=== PATIENT | female | born 1970 | race Hispanic/Latino ===

== ENCOUNTER 2024-02-16 18:07 | Inpatient (IN) | payer OTHER, SELFPAY ==
[2024-02-16] VITALS (24 sets, daily range): BP systolic 80–150; BP diastolic 54–115; BMI 26.3; BMI 25.5
[2024-02-16 16:39] LABS: Glucose - Point of Care 143 mg/dl (70-99)
[2024-02-16 16:50] LABS: % Basophils 0.4 % (0-2); % Eosinophils 0.2 % (0-6); % Immature Granulocytes 0.6 % (0-0.5); % Lymphocytes 22.7 % (20.5-51.1); % Monocytes 5.4 % (1.7-9.3); % Neutrophils 70.7 % (42.2-75.2); Absolute Basophils 0.1 10^3/uL (0-0.2); Absolute Immature Granulocytes 0.1 10^3/uL (0-0.05); Absolute Lymphocytes 2.8 10^3/uL (1.2-3.4); Absolute Monocytes 0.7 10^3/uL (0.1-0.6); Absolute Neutrophils 8.5 10^3/uL (1.4-6.5); Hematocrit 49.4 % (37.0-47.0); Hemoglobin 16.6 g/dL (12.0-16.0); Mean Corp Hgb Conc. 33.6 g/dL (33.0-37.0); Mean Corpuscular Hgb 30.7 pg (27.0-31.0); Mean Corpuscular Volume 91.5 fL (81.0-99.0); Mean Platelet Volume 11.4 fL (7.4-10.4); Nucleated Red Blood Cells % 0 %; Platelet Count 213 10^3/uL (130-400); Red Cell Dist. Width 12.5 % (11.5-14.5); White Blood Cell Count 12.1 10^3/uL (4.8-10.8)
[2024-02-16 17:16] LABS: ALT (SGPT) 25 U/L (0-35); AST (SGOT) 41 U/L (14-36); Albumin 4.4 g/dl (3.5-5.0); Alkaline Phosphatase 176 U/L (38-126); Blood Urea Nitrogen 20 mg/dl (7-17); Calcium 9.3 mg/dl (8.4-10.2); Carbon Dioxide 25 mmol/L (22-30); Chloride 101 mmol/L (98-107); Glucose 149 mg/dl (70-99); Potassium 4.4 mmol/L (3.5-5.1); Sodium 139 mmol/L (135-145); Total Bilirubin 0.8 mg/dl (0.2-1.3); eGFR > 60.00
[2024-02-16 17:23] LABS: Troponin I 0.756 ng/ml
[2024-02-16] MEDS: NITROSTAT (SUBLINGUAL) 0.4 MG SL (17:34)
--- NOTE | 2024-02-16 17:45 | ED.GENMED ---
History of Present Illness
General
Chief Complaint: Headache
Source: patient
Exam Limitations: none
Time Seen by Provider: 02/16/24 16:12
Nursing documentation reviewed up to this point in time: agreed with
History of Present Illness
History of Present Illness:
Patient diagnosed with non-STEMI and scheduled for CABG procedure on Sunday, presents to the emergency department after leaving AGAINST MEDICAL ADVICE at [facility] this afternoon. Patient states that she wanted to be near her family when
she has a procedure. Upon arrival, however, patient denies any chest pain. Patient did receive cardiac catheterization which revealed three-vessel disease 2 days ago. Patient denies shortness of breath. Denies dizziness. Denies nausea vomiting.
Denies diaphoresis. Denies previous history of similar symptoms. Patient states that she initially presented to [facility] secondary to severe left-sided chest pain.
Review of Systems
Review of Systems
Allergies reviewed?: Yes
All Other Systems: ROS reviewed and negative except as documented in HPI and ROS
Constitutional: Reports no symptoms
EENT: Reports no symptoms
Respiratory: Reports no symptoms
Cardiac: Reports no symptoms
ABD/GI: Reports no symptoms
: Reports no symptoms
Musculoskeletal: Reports no symptoms
Skin: Reports no symptoms
Neurological: Reports no symptoms
Phy Exam
Physical Exam
Physical Exam:
Physical Exam
General: no apparent distress, not acutely ill. afebrile
Head: nc/at. eomi
Neck: supple. no meningeal signs.
Heart: s1/s2 regular rate and rhythm, no murmur. equal radial pulses.
Lungs: no acute respiratory distress. clear bilaterally
Abdomen: normal bowel sounds. not tender.
Neuro: alert and oriented. no focal neurological deficits
Skin: no rash
Psychiatric: well kept. interactive and cooperative
Extremities: no edema. no calf tenderness.
Scores
Heart Score for Chest Pain Patients
STEMI patient?: No
History: Moderately Suspicious
ECG: Normal
Age: >45 - <65 years
Risk Factors: 1 or 2 Risk Factors
Troponin: >1 - <3 x Normal Limit
Heart Score for Chest Pain Patients: 4
Heart Score Risk: 20.3% MACE over next 6 weeks
Course
Orders/Labs/Results
Orders:
Orders
02/16/24 15:51
Electrocardiogram (*1) Urgent
Reason for Study: Fatigue / Weakness
EKG- Treatment ONCE
02/16/24 16:36
CR Chest Portable - 1 View Urgent
Comment:
Reason For Exam: chest pain
Reason Study Needs to be Portable: Patient Unstable
02/16/24 16:41
Complete Blood Count/With Diff Urgent
Comprehensive Metabolic Panel Urgent
Magnesium Urgent
Troponin I Urgent
02/16/24 17:22
Electrocardiogram (*1) Urgent
Reason for Study: Chest Pain
EKG- Treatment ONCE
02/16/24 17:30
Nitroglycerin Sublingual [Nitrostat (Sublingual)] 0.4 mg SL NOW STA
02/16/24 17:32
Nitroglycerin Sublingual [Nitrostat (Sublingual)] 0.4 mg .ROUTE .STK-MED ONE
02/16/24 17:41
PTT Urgent
02/16/24 17:46
Heparin 4,000 units IV NOW STA
Nursing to Place Non Medication Order As Directed
Physician Order: PTT 6 hours after initial start of Heparin infusion
Above order entered?: Yes
02/16/24 17:51
Admit/Transfer Patient As Directed
Co-Sign Provider:
Level of Care: Inpatient admission
Assign to:: IMU- Intermediate Care
Physician / Group: anthony kemp
Diagnosis: nstemi
Reason for Hospitalization: nstemi
Expected length of stay greater than two midnights?: Yes
ELOS- Estimated Length of Stay in days: 3
I certify the patient meets the requirements for IP care: Yes
PRN Pain Medication Management As Directed
May give lesser potent ordered pain med per pt: Yes
preference::
Protocol:: Medication orders for pain may be administered in a
manner that supports deferring to patient preference
when the pt is:
-Requesting an ordered lesser potent pain medication.
Least to most potent pain medications are defined as:
acetaminophen < NSAID < tramadol < opioids (morphine,
oxycodone, hydromorphone).
- Requesting a lesser dose of the same medication IF
ORDERED.
- Requesting a less intrusive route of administration
if both routes are prescribed by the provider (PO <
IV).
02/16/24 17:53
EKG [Electrocardiogram (*1)] Routine
Reason for Study: Chest Pain
Comment: for chest pain, trop increase
Echo 2D MMode Color/Doppler Routine
Reason for Study: nstemi
02/16/24 18:00
Heparin 33221 Units/250 ml 25,000 units in 250 ml IV PER PROTOCOL
Weight to be used for heparin protocol in kilograms (kg):: 71.8
Protocol:: Cardiac Tx/Acute Coronary
PTT Goal Range to be used:: PTT 73 to 111 seconds
Order type:: Initial
INITIAL Infusion Dose (UNITS/KG/hr) & then follow protocol:: 12 units/kg/hr
Infusion Dose in UNITS/hr & then follow protocol (UNITS/hr):: 850
INFUSION RATE in mL/hr & then follow protocol (mL/hr):: 8.5
PTT less than or equal to 64 seconds:: Increase rate by 200 units/hr (+ 2 mL/hr)
PTT 64.1 to 72.9 seconds:: Increase rate by 100 units/hr (+ 1 mL/hr)
PTT 73 to 111 seconds:: Target Range. No change in rate.
PTT 111.1 to 130.9 seconds:: Decrease rate by 100 units/hr (- 1 mL/hr)
PTT 131 to 199.9 seconds:: HOLD for 1 hr. Then decrease rate by 200 units/hr (- 2 mL/hr)
PTT greater than or equal to 200 seconds:: HOLD for 2 hrs & Notify Provider. Then decrease by 200 units/hr (-
2 mL/hr)
Lab follow-up:: Each change, PTT q6h until 2 consecutive are therapeutic. Then PTT
daily.
Nitroglycerin 100 mg/250 ml [Nitroglycerin Premix] 100 mg in 250 ml IV PER PROTOCOL
Initial dose in mcg/min, then titrate:: 25
Titrate to keep:: Chest Pain Free
Titrate by mcg/min:: 5 mcg/min, may increase by 10 mcg/min if dose > 20 mcg/min
Frequency of titrations (minutes):: every 3-5 minutes
Maximum dose in mcg/min:: 200
Begin to taper infusion when:: Remained at goal for 2hrs
Taper by mcg/min:: 5 mcg/min
Frequency of taper (minutes) if patient maintains goal:: 30
Taper to off?: Yes
If infusion off & no longer maintaining goal:: Contact Provider
02/16/24 18:08
Transfer Patient As Directed
Transfer to: IVU
02/17/24 00:00
Troponin I Q6H
02/17/24 06:00
Basic Metabolic Panel IN AM
Complete Blood Count/No Diff IN AM
Hemoglobin A1c [Glycohemoglobin (HgbA1c)] IN AM
Lipid Profile [Cardiovascular Evaluation] IN AM
Troponin I Q6H
02/17/24 12:00
Troponin I Q6H
02/18/24 06:00
Basic Metabolic Panel IN AM
Complete Blood Count/No Diff IN AM
02/19/24 06:00
Basic Metabolic Panel IN AM
Complete Blood Count/No Diff IN AM
02/20/24 06:00
Basic Metabolic Panel IN AM
Complete Blood Count/No Diff IN AM
02/21/24 06:00
Basic Metabolic Panel IN AM
Complete Blood Count/No Diff IN AM
02/22/24 06:00
Basic Metabolic Panel IN AM
Complete Blood Count/No Diff IN AM
Abnormal Lab Results
02/16/24 02/16/24
16:36 16:41
WBC 12.1 H 10^3/uL
(4.8-10.8)
Hgb 16.6 H g/dL
(12.0-16.0)
Hct 49.4 H %
(37.0-47.0)
MPV 11.4 H fL
(7.4-10.4)
Abs Immat Gran (auto) 0.1 H 10^3/uL
(0-0.05)
Absolute Neuts (auto) 8.5 H 10^3/uL
(1.4-6.5)
Absolute Monos (auto) 0.7 H 10^3/uL
(0.1-0.6)
Immature Gran % 0.6 H %
(0-0.5)
BUN 20 H mg/dl
(7-17)
Glucose 149 H mg/dl
(70-99)
AST 41 H U/L
(14-36)
Alkaline Phosphatase 176 H U/L
(38-126)
Troponin I 0.756 H* ng/ml
POC Glucose 143 H mg/dl
(70-99)
02/16/24 16:41
02/16/24 16:41
Vital Signs
Initial and Last Documented VS:
Initial Vital Signs
Temp Pulse Resp BP Pulse Ox
98.0 F 109 18 139/94 98
02/16/24 15:53 02/16/24 15:53 02/16/24 15:53 02/16/24 15:53 02/16/24 15:53
Last Documented Vital Signs
Temp Pulse Resp BP Pulse Ox
98.0 F 116 20 102/67 99
02/16/24 21:00 02/16/24 20:54 02/16/24 21:00 02/16/24 20:54 02/16/24 21:00
MDM/Problems Addressed
MDM/Problems Addressed:
History, exam, and EKG consistent with non-STEMI. Discussed with on-call cardiology, Dr. Lerma. Recommends hospitalist admission on heparin protocol.
Patient with recurrent chest pain during observation ED, improved with sublingual nitroglycerin. As such, patient will be started on nitroglycerin infusion.
Discussed with internal medicine resident at an outside hospital who saw the patient today, - patient scheduled for CABG next week but offered RCA stent placement this afternoon, but patient refused and left AMA.
Pt with complete resolution of CP during NTG gtt.
Critical care statement: A total of 40 minutes of critical care time was provided for this patient. This includes management of unstable vital signs, evaluation of the patient at bedside, reviewing the patient's pertinent medical records, discussion
with consultants, review of old EKGs and review of pertinent medical records. This time with separate from time utilized to perform the aforementioned documented procedures
*EKG
Interpreted by ED Provider?: Yes
EKG Intrepretation Date: 02/16/24
Heart Rate: 102
Rate: tachycardiac
Rhythm: sinus
Gorman: normal axis
Interval: normal interval
QRS Pattern: normal QRS
Ischemia: other (Q waves noted III, aVF)
*Critical Care Note
Total Time (30-74mins, 75-104mins- exclusive of procedures): Not Applicable
ED Attending Note
-
Portions of this chart may have been created with voice recognition software.� Occasional wrong word or��sound alike� substitutions may have occurred due to the inherent limitations of voice recognition software.
Discharge Plan
Departure
Patient Disposition: Admit
Date of Disposition: 02/16/24
Time of Disposition: 17:53
Admit to: IMU
Presentation/result/management discussed w/ accepting MD/DO: Hospitalist
Discharge Problem:
Non-ST elevation NH (NSTEMI)
Interventions
Interventions:
*Risk Screen - Suicide Last Done: 02/16/24 15:53
*General Assessment Last Done: 02/16/24 15:53
*Neglect/Abuse Screening Last Done: 02/16/24 15:53
ED- Fall Risk Assessment Last Done: 02/16/24 20:27
*ED COVID-19 Vaccine History Last Done: 02/16/24 15:53
*Nursing Disposition Last Done: 02/16/24 20:27
ED- Neurological Assessment Last Done: 02/16/24 17:00
Discharge Date and Time
Discharge Date/Time: 02/16/24 20:45
[2024-02-16] MEDS: NITROGLYCERIN PREMIX 250 IV (17:49)
[2024-02-16 18:01] LABS: APTT 25.3 Sec (23.4-35.0)
[2024-02-16] MEDS: HEPARIN 4000 UNITS IV (18:04)
[2024-02-16] MEDS: HEPARIN 25000 UNITS/250 ML IV (18:09)
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
[2024-02-16] MEDS: ROXICODONE 10 MG PO (19:47)
[2024-02-16 21:30] LABS: Glucose - Point of Care 142 mg/dl (70-99)
[2024-02-16] MEDS: ELAVIL 75 MG PO (21:40)
[2024-02-16] MEDS: NEURONTIN 1600 MG PO (21:40)
[2024-02-16] MEDS: ZYPREXA 20 MG PO (21:40)
--- NOTE | 2024-02-16 21:48 | PTCARENOTE ---
received patient from the ED. AAox3. denies any cp. patient only complaint is feeling nauseous. patient vomited x2-gabapentin pills visible. updated Chandrika Fletcher [employer]. awaiting Zofran and new gabapentin orders.
HR ST 115s. bp 91/57. no cp/sob. nitro gtt titrated per order-currently running at 15 mcg/min. heparin gtt infusing per order. educated patient to inform RN with any changes overnight. call elliott within reach. reviewed plan of care and verbalized
understanding.
[2024-02-16] MEDS: ZOFRAN 4 MG IV (21:55)
[2024-02-17] VITALS (7 sets, daily range): BP systolic 93–125; BP diastolic 64–82
[2024-02-17] MEDS: ROXICODONE PO ×2 (00:28→05:03)
[2024-02-17 00:45] LABS: APTT 39.6 Sec (23.4-35.0)
[2024-02-17 00:58] LABS: Troponin I 0.736 ng/ml
--- NOTE | 2024-02-17 05:04 | PTCARENOTE ---
patient slept well overnight. no cp. nitro and heparin gtt infusing per protocol. no n/v. ST 100s. bp 105/70.
[2024-02-17 08:01] LABS: Glucose - Point of Care 104 mg/dl (70-99)
[2024-02-17 08:33] LABS: Hematocrit 46.9 % (37.0-47.0); Hemoglobin 16.3 g/dL (12.0-16.0); Mean Corp Hgb Conc. 34.8 g/dL (33.0-37.0); Mean Corpuscular Hgb 31.6 pg (27.0-31.0); Mean Corpuscular Volume 90.9 fL (81.0-99.0); Mean Platelet Volume 12.1 fL (7.4-10.4); Platelet Count 197 10^3/uL (130-400); Red Blood Cell Count 5.16 10^6/uL (4.20-5.40); Red Cell Dist. Width 12.7 % (11.5-14.5); White Blood Cell Count 12.8 10^3/uL (4.8-10.8)
[2024-02-17 08:52] LABS: Blood Urea Nitrogen 24 mg/dl (7-17); Calcium 9.1 mg/dl (8.4-10.2); Carbon Dioxide 20 mmol/L (22-30); Chloride 104 mmol/L (98-107); Estimated Creatinine Clearance 59 ml/min; Glucose 104 mg/dl (70-99); HDL Cholesterol 66 mg/dl; Potassium 4.3 mmol/L (3.5-5.1); Sodium 141 mmol/L (135-145); Triglyceride 169 mg/dl (10-149); Very Low Density Lipoprotein 33 mg/dl (0-30); eGFR > 60.00
[2024-02-17 08:54] LABS: Troponin I 0.611 ng/ml
[2024-02-17 08:59] LABS: LDL Cholesterol, Calculated 241 mg/dl; Total Cholesterol 340 mg/dl (50-199)
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
[2024-02-17] MEDS: ZOFRAN 4 MG IV (09:09)
[2024-02-17] MEDS: NOVOLOG FLEXPEN 30 UNITS SC (09:16)
[2024-02-17] MEDS: FARXIGA 25 MG PO (09:17)
[2024-02-17] MEDS: NOVOLOG FLEXPEN-LOW RESISTANCE SC (09:17)
[2024-02-17] MEDS: NEURONTIN 1600 MG PO ×3 (09:18→22:07)
[2024-02-17] MEDS: ROXICODONE 10 MG PO ×4 (09:23→19:41)
[2024-02-17] MEDS: LOPRESSOR 12.5 MG PO ×2 (11:14→19:41)
[2024-02-17] MEDS: ZESTRIL 2.5 MG PO (11:15)
[2024-02-17 12:06] LABS: Glucose - Point of Care 55 mg/dl (70-99)
[2024-02-17] MEDS: DEXTROSE 50% SYRINGE 12.5 GRAMS IV (12:12)
[2024-02-17 12:21] LABS: Glycohemoglobin (HgbA1c) 11.8 % (4.0-5.6)
[2024-02-17 12:23] LABS: Glucose - Point of Care 214 mg/dl (70-99)
[2024-02-17] MEDS: NOVOLOG FLEXPEN-LOW RESISTANCE 1 UNITS SC ×2 (12:54→16:09)
[2024-02-17] MEDS: NOVOLOG FLEXPEN SC ×2 (12:57→16:12)
[2024-02-17 12:59] LABS: Glucose - Point of Care 194 mg/dl (70-99)
--- NOTE | 2024-02-17 13:22 | W.PN.HOSP.TC ---
Today's Communication/Plan
-
cardiology recs
hep gtt
obtain records from [facility]
Assessment / Plan
Assessment / Plan
Physical Exam
NAD, resting comfortably in bed
Scleral anicteric
Moist mucous membranes
No JVD
CTA bilateral
Normal S1-S2 no murmurs
Soft nontender nondistended bowel sounds active
No peripheral pitting edema
Moves extremities spontaneously
AAOx3
Assessment and Plan
NSTEMI
-Troponin peak 0.756, downw since then
-Heparin drip
-NTG gtt off per cards, started on prn ntg
-EKG as needed for chest pain
-2d echo ordered
-Medical records request
-Cardiology following
IDDM
-Accuchecks
-SSi, long and short acting
-Bg 140-180
-CCDiet
-A1c pending
--states she misses her insulin dosing sometimes. this brings up ocncern that should we be concerned for noncomplaince
HLD
-LDL in the 200's
--Crestor started
Chronic opiod use
-Continue home dose oxycodone
Smoker - active
-NRT
IVU
Full Code
Anticipated Discharge: > 48 hours
Subjective/Interval History
-
Date of Service: February 17, 2024
seen and examined. no new complaints. no acute ovenirght events
Objective Data
-
Labs:
Laboratory Results
02/17/24 02/17/24
08:13 15:05
WBC 12.8 H
Hgb 16.3 H
Hct 46.9
Plt Count 197
APTT 44.0 H Pending
Sodium 141
Potassium 4.3
Chloride 104
Carbon Dioxide 20 L
BUN 24 H
Creatinine 1.0
Glucose 104 H
Calcium 9.1
Vital Signs:
Vital Signs
Temp Pulse Resp BP Pulse Ox
98.5 F 115 20 106/47 95
02/17/24 11:15 02/17/24 11:14 02/17/24 11:15 02/17/24 11:14 02/17/24 11:15
[2024-02-17 14:19] LABS: Glucose - Point of Care 162 mg/dl (70-99)
--- NOTE | 2024-02-17 15:17 | PTCARENOTE ---
Pt diaphoretic and states that she is dizzy. Blood glucose 55. Manav crackers and 8 oz of orange juice given to pt. Pt very anxious at this time. Pt inhaled the juice and crackers and continued to ask for alot of orange juice and crackers. Pt
still diaphoretic. D50, 1/2 amp, given per prn order. Repeat accu check was 214, 15 minutes after 55 result. Will continue to follow hypoglycemic protocol. Will monitor.
[2024-02-17 15:40] LABS: APTT 53.7 Sec (23.4-35.0)
[2024-02-17 16:14] LABS: Glucose - Point of Care 194 mg/dl (70-99)
[2024-02-17] MEDS: CRESTOR 40 MG PO (16:15)
[2024-02-17] MEDS: HEPARIN 25000 UNITS/250 ML IV (16:16)
[2024-02-17 19:41] LABS: Glucose - Point of Care 196 mg/dl (70-99)
[2024-02-17] MEDS: ZYPREXA 20 MG PO (22:07)
[2024-02-17] MEDS: ELAVIL 75 MG PO (22:08)
[2024-02-17 22:31] LABS: Glucose - Point of Care 199 mg/dl (70-99)
[2024-02-17 22:45] LABS: APTT 43.8 Sec (23.4-35.0)
[2024-02-18] VITALS (8 sets, daily range): BP systolic 91–115; BP diastolic 64–76; BMI 25.6
[2024-02-18] MEDS: ROXICODONE PO (01:22)
--- NOTE | 2024-02-18 02:16 | PTCARENOTE ---
Received patient at change of shift. Patient sitting in bed, awake, alert, and oriented. BP 106/79, NSR/Tachysinus 90s-100s, 95% on room air. Heparin drip running at 14.5. No complaints of pain. Discussed plan of care. Patient verbalized
understanding. Call elliott within reach.
[2024-02-18 03:10] LABS: Glucose - Point of Care 155 mg/dl (70-99)
[2024-02-18] MEDS: ROXICODONE 10 MG PO ×5 (04:56→20:06)
[2024-02-18 05:19] LABS: Hematocrit 48.8 % (37.0-47.0); Hemoglobin 16.1 g/dL (12.0-16.0); Mean Corpuscular Hgb 30.7 pg (27.0-31.0); Mean Platelet Volume 11.5 fL (7.4-10.4); Platelet Count 213 10^3/uL (130-400); Red Blood Cell Count 5.25 10^6/uL (4.20-5.40); Red Cell Dist. Width 12.6 % (11.5-14.5); White Blood Cell Count 10.7 10^3/uL (4.8-10.8)
[2024-02-18 05:37] LABS: APTT 128.6 Sec (23.4-35.0)
[2024-02-18 06:20] LABS: Blood Urea Nitrogen 25 mg/dl (7-17); Carbon Dioxide 24 mmol/L (22-30); Chloride 105 mmol/L (98-107); Estimated Creatinine Clearance 59 ml/min; Glucose 173 mg/dl (70-99); Potassium 4.9 mmol/L (3.5-5.1); Sodium 139 mmol/L (135-145); eGFR > 60.00
--- NOTE | 2024-02-18 06:56 | W.PN.HOSP.TC ---
Today's Communication/Plan
-
c/w Heparin gtt
Order echo, f/w cardiology recommendations, appreciate input
c/w BB, statin, aspirin
c/w oxy and gabapentin
Lower dose of insulin
Assessment / Plan
Assessment / Plan
Physical Exam
NAD, resting comfortably in bed
HEENT: no deformities, scleral anicteric. Moist mucous membranes.
Lungs: CTA bilateral
Heart: S1S2
Abdomen: Soft nontender nondistended bowel sounds active
Legs: No peripheral pitting edema
Neurological: Moves extremities spontaneously. AAOx3
Psych: calm, pleasant
Assessment and Plan
# NSTEMI
- she reports chest pain, unstable angina but no pain over night
troponin peak at 0.75
c/w IV Heparin drip, BB, low dose REYMUNDO, Statin
c/w aspirin
-2d echo ordered
-Medical records request
-Cardiology following, appreciate help
# mild hypotension over night
no symptoms
c/w BB and low dose REYMUNDO
#IDDM
Low blood glucose and pt was not taking Lantus and her pre-meal insulin, will lower both
c/w diabetic diet
-AccuCheck
-SSi, long and short acting
-Bg 140-180
-CCDiet
-A1c 11.8 c/w poorly controlled diabetes.
# hx of depression/ bipolar disorder
Mood is cooperative
c/w olanzapine 20 mg
#HLD
-LDL in the 200's
--Crestor started
#Chronic pain syndrome with opioid dependency
-Continue home dose oxycodone
# Active tobacco Smoker
Counseled to quit.
#Diabetic polyneuropathy, c/w Gabapentin
# Leukocytosis, reactive
no Fevers
Total time spent to see the patient, examine the patient on the floor, review data and lab results, discuss treatment plan with patient, nursing staff around 55 minutes
Anticipated Discharge: > 48 hours
Subjective/Interval History
-
Date of Service: February 18, 2024
No chest pain
No sob
No abd pain
Objective Data
-
Labs:
Laboratory Results
02/17/24 02/18/24 02/18/24
22:15 05:05 12:15
WBC 10.7
Hgb 16.1 H
Hct 48.8 H
Plt Count 213
APTT 43.8 H 128.6 H Pending
Sodium 139
Potassium 4.9
Chloride 105
Carbon Dioxide 24
BUN 25 H
Creatinine 1.0
Glucose 173 H
Calcium 9.0
Vital Signs:
Vital Signs
Temp Pulse Resp BP Pulse Ox
97.9 F 91 18 103/65 95
02/18/24 03:09 02/18/24 03:05 02/18/24 03:09 02/18/24 03:05 02/18/24 03:09
I&O
02/16/24 02/17/24 02/18/24
06:59 06:59 06:59
Intake Total 828.8 / 828.8
Balance 828.8 / 828.8
[2024-02-18 08:13] LABS: Glucose - Point of Care 145 mg/dl (70-99)
[2024-02-18] MEDS: NOVOLOG FLEXPEN 5 UNITS SC ×3 (09:02→17:05)
[2024-02-18] MEDS: FARXIGA 25 MG PO (09:02)
[2024-02-18] MEDS: LOPRESSOR 12.5 MG PO ×2 (09:02→20:06)
[2024-02-18] MEDS: NOVOLOG FLEXPEN-LOW RESISTANCE SC (09:02)
[2024-02-18] MEDS: NEURONTIN 1600 MG PO ×3 (09:03→21:59)
[2024-02-18] MEDS: ZESTRIL 2.5 MG PO (09:03)
[2024-02-18] MEDS: HEPARIN 25000 UNITS/250 ML IV (09:10)
--- NOTE | 2024-02-18 09:39 | PTCARENOTE ---
Blood sugar was 145. Standing insulin dose adjusted, patient with a low afternoon blood sugar yesterday. 5 units given with breakfast
--- NOTE | 2024-02-18 10:13 | W.PN.CARDCBS ---
Today's Communication / Plan
-
Await records
Echo pending
Further recommendations to follow pending further records and evaluation of coronary anatomy with interventional cardiology.
Impression / Plan
-
.
Impression:
Unstable angina, troponin peak 0.7
Recent admit [facility] for [place], signed out AMA
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
DM-2 Insulin
Hyperlipidemia, admits to poor compliance, LDL 241
Chronic back pain on oxycodone and on disability
5 spinal fusion surgeries
Active smoker
Leukocytosis, improved
Elevated AST
Plan:
Continue IV heparin anticoagulation.
Cont Lopressor 12.5 mg BID
Cont Lisinopril 2.5 mg daily.
Cont to monitor EKG.
Cont Crestor at 40 mg p.o. HS
Discussed lipids and LDL is poorly controlled. Patient admits to noncompliance with medications.
Echocardiogram to evaluate left ventricular systolic function is pending
Requested records from recent hospitalization [facility] where patient signed out AMA last week. Reviewed cardiac catheterization with patient.
Obtain cardiac catheterization films to review with interventional cardiology.
Further recommendations to follow pending further records and evaluation of coronary anatomy with interventional cardiology.
We have had a long discussion regarding compliance with medications
Smoking cessation has been discussed.
Discussed with nursing.
Progress Note - Director Trading
Subjective
Date of Service: February 18, 2024
Pt seen and examined. No complaints. No chest pain or shortness of breath.
Objective
Labs:
02/18/24 05:05
02/18/24 05:05
Labs
Hgb 16.1 g/dL (12.0-16.0) H 02/18/24 05:05
Hct 48.8 % (37.0-47.0) H 02/18/24 05:05
Plt Count 213 10^3/uL (130-400) 02/18/24 05:05
APTT 128.6 Sec (23.4-35.0) H 02/18/24 05:05
Sodium 139 mmol/L (135-145) 02/18/24 05:05
Potassium 4.9 mmol/L (3.5-5.1) 02/18/24 05:05
BUN 25 mg/dl (7-17) H 02/18/24 05:05
Creatinine 1.0 mg/dL (0.6-1.0) 02/18/24 05:05
Glucose 173 mg/dl (70-99) H 02/18/24 05:05
Troponins
02/16/24 02/16/24 02/17/24
16:41 18:00 00:14
Troponin I 0.756 H* Cancelled 0.736 H*
02/17/24 02/17/24
08:13 15:07
Troponin I 0.611 H* Cancelled
Vital Signs and I&O:
Vital Signs
Temp Pulse Resp BP Pulse Ox
97.6 F 102 20 115/76 96
02/18/24 08:59 02/18/24 09:00 02/18/24 08:59 02/18/24 08:53 02/18/24 08:59
Vital Signs
Temp Pulse Resp BP Pulse Ox
97.6 F 102 20 115/76 96
02/18/24 08:59 02/18/24 09:00 02/18/24 08:59 02/18/24 08:53 02/18/24 08:59
Intake & Output
02/16/24 02/17/24 02/18/24 02/19/24
06:59 06:59 06:59 06:59
Intake Total 828.8 / 828.8
Balance 828.8 / 828.8
Physical Exam
Physical Exam
General: No acute distress, AAOX3
Neck: Negative JVD
Heart: Regular, Negative S3 positive S1/S2, Negative S4, No murmur
Lungs: CTA b/l, negative wheezes/rales/rhonchi
Abd: Positive BS, NT/ND, neg rebound/rigidity/guarding
Ext: Negative cyanosis/clubbing/edema
Neuro: nonfocal
--- NOTE | 2024-02-18 11:27 | CM ---
Addendum entered by Billie Urrutia RN 02/18/24 15:17:
Phone call received from Oksana, Nurse Improvement Lead from [facility]. Patient receives 140 hours of waiver services. Patient will need these hours set up prior to discharge home. Patient's Urban Renewal Manager who manages this is Natalie at [phone]
Original Note:
Chart reviewed. Patient is independent of ADLS, lives with her aunt in a [facility], [facility], ambulates with a RW and SPC. Patient currently receiving home care from her daughter and niece through [address] Confirmed this with Juan the
Candlemaking Laborer at [phone]. Updated progress notes faxed to [phone]. Plan is for the patient to return home with VN. CM to follow
[2024-02-18 12:24] LABS: Glucose - Point of Care 157 mg/dl (70-99)
--- NOTE | 2024-02-18 13:23 | W.PN.UPDATE ---
Update Note
Progress Note Update
Called and talked with the Aniline Press Worker at [facility] and their phone number is [phone] with a fax #[phone]. They said that they will start transferring images to a disc and work on sending it to us once we send a medical records
release.
[2024-02-18] MEDS: NOVOLOG FLEXPEN-LOW RESISTANCE 1 UNITS SC ×2 (13:31→17:04)
[2024-02-18 16:31] LABS: Glucose - Point of Care 181 mg/dl (70-99)
[2024-02-18] MEDS: CRESTOR 40 MG PO (17:04)
[2024-02-18 18:59] LABS: APTT 122.9 Sec (23.4-35.0)
[2024-02-18 21:32] LABS: Glucose - Point of Care 202 mg/dl (70-99)
[2024-02-18] MEDS: LANTUS 0.1 UNITS SC (21:58)
[2024-02-18] MEDS: ELAVIL 75 MG PO (21:59)
[2024-02-18] MEDS: ZYPREXA 20 MG PO (21:59)
[2024-02-19] VITALS (31 sets, daily range): BP systolic 50–128; BP diastolic 26–110; BMI 26.3
[2024-02-19] MEDS: ROXICODONE 10 MG PO ×6 (00:11→20:09)
[2024-02-19] MEDS: HEPARIN 25000 UNITS/250 ML IV ×2 (00:12→18:06)
--- NOTE | 2024-02-19 01:24 | PTCARENOTE ---
Rec'd pt at change of shift. PT AAO*3, in NSR on TELE monitor, and VSS. Pt with heparin ggt infusing as ordered (see flowsheet for details). Pt denied any chest pain of discomfort. Pt resting with call elliott in reach. Plan of care ongoing.
[2024-02-19 01:42] LABS: Hematocrit 41.6 % (37.0-47.0); Hemoglobin 13.8 g/dL (12.0-16.0); Mean Corp Hgb Conc. 33.2 g/dL (33.0-37.0); Mean Corpuscular Hgb 30.7 pg (27.0-31.0); Mean Corpuscular Volume 92.4 fL (81.0-99.0); Mean Platelet Volume 11.5 fL (7.4-10.4); Platelet Count 184 10^3/uL (130-400); Red Cell Dist. Width 12.6 % (11.5-14.5); White Blood Cell Count 10.5 10^3/uL (4.8-10.8)
[2024-02-19 01:54] LABS: APTT 111.2 Sec (23.4-35.0)
[2024-02-19 02:27] LABS: Blood Urea Nitrogen 26 mg/dl (7-17); Calcium 8.8 mg/dl (8.4-10.2); Carbon Dioxide 23 mmol/L (22-30); Chloride 104 mmol/L (98-107); Estimated Creatinine Clearance 59 ml/min; Glucose 215 mg/dl (70-99); Potassium 4.6 mmol/L (3.5-5.1); Sodium 139 mmol/L (135-145); eGFR > 60.00
--- NOTE | 2024-02-19 06:47 | W.PN.HOSP.TC ---
Today's Communication/Plan
-
Await further planning
Low BP, might be unable to tolerate BP medications
High BS, increase pre-meal and long acting insulin
Assessment / Plan
Assessment / Plan
Physical Exam
NAD, resting comfortably in bed
HEENT: no deformities, scleral anicteric. Moist mucous membranes.
Lungs: CTA bilateral
Heart: S1S2
Abdomen: Soft nontender nondistended bowel sounds active
Legs: No peripheral pitting edema
Neurological: Moves extremities spontaneously. AAOx3
Psych: calm, pleasant
Assessment and Plan
# NSTEMI
- she reports chest pain, unstable angina but no pain over night
troponin peak at 0.75
c/w IV Heparin drip, BB, low dose REYMUNDO, Statin
c/w aspirin
Echocardiogram on February 17 showed LVEF 50 to 55%, normal left ventricular size and function. Mild concentric LVH, no significant valvular disease.
-Medical records requested
-Cardiology following, appreciate help
# mild hypotension over night
no symptoms
c/w BB and low dose REYMUNDO
#IDDM
Poorly controlled.
High BS, readjust doses of Lantus and pre-meal
c/w diabetic diet
-AccuCheck
-SSi, long and short acting
-CCDiet
-A1c 11.8 c/w poorly controlled diabetes.
# hx of depression/ bipolar disorder
Mood is cooperative
c/w olanzapine 20 mg
#HLD
-LDL in the 200's
--Crestor started
#Chronic pain syndrome with opioid dependency
-Continue home dose oxycodone
# Active tobacco Smoker
Counseled to quit.
#Diabetic polyneuropathy, c/w Gabapentin
# Leukocytosis, reactive
no Fevers
Total time spent to see the patient, examine the patient on the floor, review data and lab results, discuss treatment plan with patient, nursing staff around 55 minutes
Anticipated Discharge: 24 - 48 hours
Subjective/Interval History
-
Date of Service: February 19, 2024
No chest pain
No sob
Objective Data
-
Labs:
Laboratory Results
02/18/24 02/19/24 02/19/24
18:36 01:34 08:30
WBC 10.5
Hgb 13.8
Hct 41.6
Plt Count 184
APTT 122.9 H 111.2 H Pending
Sodium 139
Potassium 4.6
Chloride 104
Carbon Dioxide 23
BUN 26 H
Creatinine 1.0
Glucose 215 H
Calcium 8.8
Vital Signs:
Vital Signs
Temp Pulse Resp BP Pulse Ox
98.2 F 91 18 107/68 93
02/19/24 03:59 02/19/24 05:00 02/19/24 03:59 02/19/24 03:58 02/19/24 03:59
I&O
02/17/24 02/18/24 02/19/24
06:59 06:59 06:59
Intake Total 828.8 / 828.8 480 / 480
Balance 828.8 / 828.8 480 / 480
[2024-02-19 07:10] LABS: Glucose - Point of Care 234 mg/dl (70-99)
[2024-02-19] MEDS: NEURONTIN 1600 MG PO ×3 (07:53→21:12)
[2024-02-19] MEDS: ZESTRIL 2.5 MG PO (07:53)
[2024-02-19] MEDS: FARXIGA 25 MG PO (07:53)
[2024-02-19] MEDS: LOPRESSOR 12.5 MG PO ×2 (07:54→21:12)
[2024-02-19] MEDS: FLUSH (NSS) 2 FLUSH IV (07:55)
--- NOTE | 2024-02-19 09:00 | W.PN.CARDCBS ---
Addendum entered and electronically signed by Imelda Tanner MD 02/19/24 12:20:
I saw and examined the patient.
The Diagnostic Technologist's note was reviewed and I agree with the note.
Comment: Seen and examined patient. Niece and sister at the bedside. Patient by report with multivessel coronary disease and at [place] they were deciding CABG versus multivessel stenting. We have been unsuccessful at obtaining catheter
report or Employment Attorney films. We have called multiple times and by report 'final report is not completed and they cannot release '. We explained the situation and we have placed a call to administration of the Employment Attorney.
Patient had been stable but now developed 4 out of 10 chest discomfort into her left shoulder. Received 1 sublingual nitroglycerin. And dropped her blood pressure 60s to 70s systolic. Mentating well. IV fluid bolus started. Patient's pain is
minimal at this time. After IV fluid her blood pressure now 84/60. Family updated at the bedside.
Given change in clinical status with patient being ill with unstable angina in the setting of suspected multivessel coronary disease we will proceed with cardiac catheterization today. Will move patient to higher level care CVICU. Have discussed
with CT surgery PA's and have also placed a call into CT surgery. Await cardiac catheterization.
EKG without acute ST changes. Avoid nitrates at this time.
Aspirin, heparin, statin.
Discussed plan with family, patient, nursing staff in addition.
42 minutes total critical care time coordinating care, assisting in transferring patient to higher level care, ordering treatment and coordinating with Employment Attorney team and CT surgical service.
Original Note:
Today's Communication / Plan
-
Chest pain after our initial meeting, better with NTG, hypotensive starting bolus
Transfer to CVICU
Impression / Plan
-
.
Impression:
Unstable angina, troponin peak 0.7
Recent admit [facility] for [place], signed out AMA
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
DM-2 Insulin
Hyperlipidemia, admits to poor compliance, LDL 241
Chronic back pain on oxycodone and on disability
5 spinal fusion surgeries
Active smoker
Leukocytosis, improved
Elevated AST
Echo 02/18/2024: EF 50 to 55%, mild concentric LVH, no significant valve disease
Plan:
-Patient with chest pain on admission after signing out from [facility] last week. Heparin gtt started in [facility] and no recurrence of pain until 02/19/24 AM.
-Aspirin 324 mg now and then 81 mg daily.
-Cont Heparin gtt
-ECG checked urgently and no acute ischemic changes
-New to Lopressor 12.5 mg BID this admission and VS stable thus far
-New to lisinopril 2.5 mg daily this admission and VS stable thus far
-Transfer to CVICU, orders placed by me.
-Patient reports having a cardiac cath at [facility] last week and that she was told that she would need multiple stents vs bypass and then felt uncomfortable with some of the plans being made and felt like she was not in control of her
care and so she signed out, possibly AMA, and came to [facility].
-Called and talked with Roman in the poultry hatchery laborer at [facility] phone # [phone]. Roman says that [facility] cannot and will not share cath films electronically on [employer], she says they have never done this. I told
Roman that I found that hard to believe and she did not respond. I asked Roman if I could talk to someone on their IT dept or someone else who might be able to help me and she said no. I asked if the cath films had been transferred to disc and
were in transit following our discussion 02/18/24 and she said no. Roman says that the cath report has not been signed off on by the physician and so they cannot release the cath images onto a disc. I asked Roman for the physicians name so I could
call his office and she would not give me the name. Roman says that the charge gang weigher told the cath physician yesterday that he needed to sign off on the cath report on 02/18/24, but he still has not signed off as of 02/19/24 at 1134.
-New to Crestor at 40 mg HS, LDL 241
Progress Note - Electronic Device Repairer
Subjective
Date of Service: February 19, 2024
Chest pain
Objective
Labs:
02/19/24 01:34
02/19/24 01:34
Labs
Hgb 13.8 g/dL (12.0-16.0) 02/19/24 01:34
Hct 41.6 % (37.0-47.0) 02/19/24 01:34
Plt Count 184 10^3/uL (130-400) 02/19/24 01:34
APTT 111.2 Sec (23.4-35.0) H 02/19/24 01:34
Sodium 139 mmol/L (135-145) 02/19/24 01:34
Potassium 4.6 mmol/L (3.5-5.1) 02/19/24 01:34
BUN 26 mg/dl (7-17) H 02/19/24 01:34
Creatinine 1.0 mg/dL (0.6-1.0) 02/19/24 01:34
Glucose 215 mg/dl (70-99) H 02/19/24 01:34
Troponins
02/16/24 02/16/24 02/17/24
16:41 18:00 00:14
Troponin I 0.756 H* Cancelled 0.736 H*
02/17/24 02/17/24
08:13 15:07
Troponin I 0.611 H* Cancelled
Vital Signs and I&O:
Vital Signs
Temp Pulse Resp BP Pulse Ox
97.9 F 91 18 113/70 95
02/19/24 07:03 02/19/24 07:07 02/19/24 07:03 02/19/24 07:07 02/19/24 07:03
Vital Signs
Temp Pulse Resp BP Pulse Ox
97.9 F 91 18 113/70 95
02/19/24 07:03 02/19/24 07:07 02/19/24 07:03 02/19/24 07:07 02/19/24 07:03
Intake & Output
02/17/24 02/18/24 02/19/24 02/20/24
06:59 06:59 06:59 06:59
Intake Total 828.8 / 828.8 480 / 480
Balance 828.8 / 828.8 480 / 480
Physical Exam
Physical Exam
GEN: NAD. AAOx3
HEENT: EOMI
LUNGS: No audible wheeze
CV: SR on tele, reg
ABD: ND
EXT: No edema B/L
NEURO: Gross non-focal
SKIN: No rash
[2024-02-19] MEDS: NOVOLOG FLEXPEN 5 UNITS SC (09:06)
[2024-02-19] MEDS: NOVOLOG FLEXPEN-LOW RESISTANCE 2 UNITS SC (09:07)
--- NOTE | 2024-02-19 09:11 | PTCARENOTE ---
The patient is aaox3, vss. NSR is noted on the monitor. She has no complaints of pain, sob, or cough. She has been up and ambulating in the room. Her gait is steady. She asked if she was getting medicine for nausea this morning. 'I always get
nauseous in the morning.' I asked her if she was nauseous now and she stated that she wasn't. I told her we should just wait and see if she becomes nauseous first before we give her medication and she agr.
[2024-02-19 09:17] LABS: APTT 88.8 Sec (23.4-35.0)
--- NOTE | 2024-02-19 11:34 | PTCARENOTE ---
Addendum entered by Hayley Bravo RN 02/19/24 12:12:
ECG completed, SL nitro given as ordered, BP dropped to 50/26. Repeats BPs 72/48, 60/41. Lashon and Dr. Tanner notified. Bolus of Iv fluid given. 324mg of aspirin given. Troponin drawn.
Original Note:
Patient complaining of left chest pressure that radiates up her next and shoulder. She rates it a 5/10 on scale. 2L of O2 were placed on the patient and I notified Lashon PRINCE.
[2024-02-19] MEDS: NSS 250 IV (12:04)
[2024-02-19] MEDS: LOW STRENGTH ASPIRIN 324 MG PO (12:04)
[2024-02-19] MEDS: NITROSTAT (SUBLINGUAL) 0.4 MG SL ×3 (12:05→20:03)
--- NOTE | 2024-02-19 12:12 | W.PN.UPDATE ---
Addendum entered and electronically signed by Lashon Morales PA-C 02/19/24 12:16:
Back in to see patient. Up to . Chest pain completely resolved. Hold off on additional NTG SL.
Original Note:
Update Note
Progress Note Update
Back in to check on patient, 2 female family members are in the room now. Updated all in room. Better after NTg SL x1, but now hypotensive. NSS 500 ml bolus now. Troponin being drawn. Planning for cath today. Transferring to CVICU now. 33 min
critical care time.
--- NOTE | 2024-02-19 12:47 | PTCARENOTE ---
Patient sent to the casting house laborer
--- NOTE | 2024-02-19 12:53 | ITS.CL.CATH ---
Lead Oxide Mill Tender - Catheterization
Cardiac Catheterization
Procedure Report:
LEFT HEART CATHETERIZATION
Date of Procedure: February 19, 2024
Referring: Imelda Tanner MD
PROCEDURES:
1. Left heart catheterization, coronary angiogram.
2. Ultrasound-guided access
INDICATION: NSTEMI
ACCESS: Right radial artery, 6 1 sheath, under ultrasound guidance
HEMODYNAMICS : (mmHg)
AO (s/d) : 97/58
LV (s/d) : 97/6
LVEDP : 13
CORONARY FINDINGS
DOMINANCE: Right
LEFT MAIN: The left main artery is a large-caliber vessel which gives rise to the left anterior descending artery and the left circumflex artery. Ostial left main has 40 to 50% stenosis with ventricularization with a 5 [place]ian diagnostic catheter.
LEFT ANTERIOR DESCENDING: Left anterior descending artery is a medium caliber vessel which gives rise to 2 small to medium caliber diagonal branches as it courses through the anterior interventricular groove towards the apex. Proximal LAD has
smooth 70 to 75% stenosis. Mid LAD at the level of D2 takeoff has eccentric 70 to 80% stenosis followed by a small aneurysmal portion just distal to the stenosis. JUNIOR-3 flow into the distal vessel.
CIRCUMFLEX: The left circumflex artery is a medium caliber vessel which gives rise to 1 major obtuse marginal branch which is medium to large in caliber. There is a 85% mid left circumflex into OM 2 focal stenosis. JUNIOR-3 flow into the distal
vessel. OM 2 appears to be a good bypass target.
RIGHT CORONARY ARTERY: The right coronary artery is a medium to large caliber dominant vessel which gives rise to the right posterior descending artery and the right posterolateral system. There is a 90% proximal to mid RCA stenosis. The distal
vessels are likely a little underfilled with distal RCA/RPDA likely bypass targets.
SEDATION: 25 minutes of procedural sedation was utilized. An independent special forces medical sergeant was present to assist with and help manage the patient's level of consciousness and physiologic status.
RADIATION SUMMARY: Fluoro Time (min): 7.2, Dose (mGy): 373.06, DAP (Gy.cm2) : 22.96
Closure Device: Vascular band over right radial artery, 12 cc of air.
CONCLUSIONS
1. Multivessel coronary artery disease.
2. New normal LVEDP at 13 mmHg.
RECOMMENDATIONS
[address]. CT surgical consult for consideration of coronary artery bypass grafting with grafts to LAD, LCx/OM, and RCA
2. Continued management for ACS.
3. Aggressive risk factor modification.
4. Eventual referral for outpatient cardiac rehab.
Copy to: Imelda Tanner MD
Jocy Palomares MD, FAC, [facility]
--- NOTE | 2024-02-19 13:17 | CM ---
Chart reviewed. Patient is independent of ADLS, lives with her aunt in a [address] [facility], ambulates with a RW and SPC. Patient currently receiving home care from her daughter and niece through [address] [facility]. Confirmed this with Juan the
Software Packaging Engineer at [phone]. Updated progress notes faxed to [phone]. Plan is for the patient to return home with VN but patient will need 40 hours of waiver services set up prior to discharge home. Patient's Air Analysis Technician who
manages this is Natalie at [phone]
--- NOTE | 2024-02-19 14:22 | CONSULT.CT ---
Consultation
-
Date/Time Consultation Requested: 02/19/24
Date/Time Consultation Performed: 02/19/24
Requesting Provider: Imelda Tanner
Performing Provider: Alisson Del Toro PA-C for Dr. Cheng Washington
Reason for Consultation: CABG evaluation
Patient History
Physicians
Outpatient Pinmaker: none
Inpatient Pinmaker: DCA
History of Present Illness
Patient is a 53y/oF (right hand dominant) with PMH IDDM, HLD, multiple spinal fusions with opioid dependence, tobacco abuse who presented to [facility] in [facility] 1 week ago with complaints of chest pain radiating to her left shoulder. Pt reports some
intermittent angina for the past few months leading up to this that resolved within a few minutes each episode. This pain did not resolve so she sought medical treatment. There, she ruled in for NSTEMI and underwent left heart catheterization and
reportedly had multivessel CAD, but films were not released from [facility] for our viewing. Patient states they told her she should have a stent and asked for her consent to have a 'computer decide what to do stents vs bypass' and she decided to
leave [place] and come to [facility] where her family lives. Since admission to on 02/16 pt has remaind relatively stable on heparin while medical teams attempted to obtain films from [facility]. Unfortunately earlier today patient started
having chest pain and had significant hypotension after 1 dose of SL nitro. Decision was made to proceed urgently with repeat [facility] to evaluate her coronaries. 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 Echo
completed yesterday demonstrates preserved LV function without significant valvular disease.
Past Medical History
Past Medical History: Other
hyperlipidemia, pt reports intolerance to statins
insulin dependent diabetes mellitus
Cervical and lumbar spinal fusions with thoracic spinal degeneration (surgeries at [facility])
tobacco abuse, 1/2-1PPD since age 15
chronic back pain with opioid dependence
Past Surgical History
history of Right Nephrectomy 2/2 hydronephrosis
cervical spine fusion C3-C4 and lumbar fusion L5-S1 @ [facility]
Family History
Family Medical History: CAD (2 uncles with history of bypass surgery; no CAD in either parent)
Social History
Alcohol: None
Drug: None
Tobacco: Smoker (1/2-1PPD since age 15)
Allergies
Allergy/AdvReac Type Severity Reaction Status Date / Time
hydromorphone [From Dilaudid] Allergy Rash Verified 02/16/24 15:58
Home Medications
�Medication �Instructions �Recorded �Confirmed �Type
albuterol sulfate 90 mcg/actuation 2 puff inhalation R Q6HPRN PRN sob 02/16/24 02/16/24 History
aerosol inhaler
amitriptyline 25 mg tablet 75 mg PO HS 02/16/24 02/16/24 History
dulaglutide 3 mg/0.5 mL 3 mg SC TU 02/16/24 02/16/24 History
subcutaneous pen injector
(Trulicity)
empagliflozin 25 mg tablet 25 mg PO DAILY 02/16/24 02/16/24 History
(Jardiance)
gabapentin 800 mg tablet 1,600 mg PO TID 02/16/24 02/16/24 History
insulin aspart U-100 100 unit/mL 30 unit SC TID 02/16/24 02/16/24 History
subcutaneous solution
insulin glargine 100 unit/mL (3 30 unit SC HS 02/16/24 02/16/24 History
mL) subcutaneous pen (Lantus
Solostar U-100 Insulin)
olanzapine 20 mg tablet 20 mg PO HS 02/16/24 02/16/24 History
oxycodone 10 mg tablet 10 mg PO Q4H 02/16/24 02/16/24 History
Review of Systems
-
History Source: Patient
General: Reports No Symptoms
HEENT: Reports No Symptoms
Respiratory: Denies SOB or RICHTER
Cardiac: Reports Chest Pain; Denies Nausea or Vomiting
Abdomen/GI: Reports No Symptoms
: Reports No Symptoms
Musculoskeletal: Reports Other (chronic back pain)
Skin: Reports No Symptoms
Neurological: Reports No Symptoms
Vascular: Reports No Symptoms
Physical Exam
Vital Signs
Temp 98.1 F 02/19/24 11:20
Temp route: Oral 02/19/24 11:20
Pulse 81 02/19/24 14:13
Rhythm: Normal sinus rhythm 02/19/24 07:55
With- Sinus tachycardia 02/19/24 07:55
Resp Rate 16 02/19/24 14:13
Blood pressure 118/81 02/19/24 14:13
Blood pressure extremity used: Left upper arm 02/19/24 14:13
Position: Lying 02/19/24 14:13
MAP (cuff-Lokesh Monitor) 76 02/19/24 12:35
SaO2 95 02/19/24 14:13
Oxygen Mode of Delivery Room air 02/19/24 14:13
Can the patient verbally communicate their pain? Yes 02/19/24 12:10
Pain scale ratin 02/19/24 12:10
Actual Weight 71.7 kg 02/19/24 04:21
Body Mass Index (BMI) 26.3 02/19/24 04:21
Labs
02/19/24 01:34
02/19/24 01:34
APTT 88.8 Sec (23.4-35.0) H 02/19/24 08:55
Hemoglobin A1c 11.8 % (4.0-5.6) H 02/17/24 08:13
Troponin I 0.180 ng/ml H* 02/19/24 12:03
Diagnostic Studies
C 02/18 ([place])
CORONARY FINDINGS
DOMINANCE: Right
LEFT MAIN: The left main artery is a large-caliber vessel which gives rise to the left anterior descending artery and the left circumflex artery. Ostial left main has 40 to 50% stenosis with ventricularization with a 5 Tajik diagnostic catheter.
LEFT ANTERIOR DESCENDING: Left anterior descending artery is a medium caliber vessel which gives rise to 2 small to medium caliber diagonal branches as it courses through the anterior interventricular groove towards the apex. Proximal LAD has
smooth 70 to 75% stenosis. Mid LAD at the level of D2 takeoff has eccentric 70 to 80% stenosis followed by a small aneurysmal portion just distal to the stenosis. JUNIOR-3 flow into the distal vessel.
CIRCUMFLEX: The left circumflex artery is a medium caliber vessel which gives rise to 1 major obtuse marginal branch which is medium to large in caliber. There is a 85% mid left circumflex into OM 2 focal stenosis. JUNIOR-3 flow into the distal
vessel. OM 2 appears to be a good bypass target.
RIGHT CORONARY ARTERY: The right coronary artery is a medium to large caliber dominant vessel which gives rise to the right posterior descending artery and the right posterolateral system. There is a 90% proximal to mid RCA stenosis. The distal
vessels are likely a little underfilled with distal RCA/RPDA likely bypass targets.
02/18/24 Echocardiography Report
CONCLUSIONS
Normal left ventricular size and systolic function. No regional wall motion abnormalities are seen. LV ejection fraction is 50-55% by Wong's method of discs. Mild concentric left ventricular hypertrophy. No significant valvular disease. No prior
study available for comparison.
Exam
General: Well Developed, Well Nourished and No Apparent Distress
HEENT: Normocephalic and Anicteric
Neck: Negative Carotid Bruit
Respiratory: Clear; Negative Wheezes or Crackles
Cardiac: Regular Rhythm; Negative Murmur
GI: Soft and Non Tender
Rectal: Deferred by Provider
Skin: Warm and Dry
Neuro: Nonfocal/Grossly Intact
Extremities: Negative Lower Level Edema
Psych: Calm
Assessment / Plan
-
53y/oF with NSTEMI & MVCAD
- in setting of IDDM and multiple coronary lesions, CABG preferred in this patient. She is amenable to undergoing preoperative workup to include US carotids, Left palmar arch US, bedside PFT, CT chest.
- continue heparin gtt and medical management per cardiology & medicine teams
- surgical timing TBD, full eval by attending to follow
Data Reviewed
-
Housekeeping Supervisor Hotel: Image Personally Visualized and interpreted and Report Reviewed by me
Echo: Report Reviewed by me
Labs: Labs Reviewed by me
--- NOTE | 2024-02-19 14:22 | PTCARENOTE ---
Received the patient from the cardiac cath lab technologist in her bed. The patient is aasox3, vss, 96% on RA. NSR is noted on the monitor. Her right R-band in intact. A right radial pulse is noted. She has no chest pain but complains on back pain. Roxicodone is given
as ordered. I instructed the patient on activity restrictions. Her call elliott is within reach.
[2024-02-19 15:13] LABS: Glucose - Point of Care 138 mg/dl (70-99)
[2024-02-19] MEDS: NOVOLOG FLEXPEN-LOW RESISTANCE SC ×2 (15:13→17:52)
[2024-02-19] MEDS: NOVOLOG FLEXPEN 7 UNITS SC ×2 (15:14→18:05)
[2024-02-19] MEDS: NSS 1000 IV (17:12)
[2024-02-19 17:21] LABS: Glucose - Point of Care 102 mg/dl (70-99)
[2024-02-19] MEDS: ProAIR HFA INHALER 2 PUFF INH (17:31)
[2024-02-19] MEDS: CRESTOR 40 MG PO (17:45)
[2024-02-19] MEDS: ELAVIL 75 MG PO (21:12)
[2024-02-19] MEDS: ZYPREXA 20 MG PO (21:12)
--- NOTE | 2024-02-19 22:16 | SUR.OPER ---
Pt c/o left side CP 7/10. Nitro SL x2 given with pain down to 0/10. TECHNICAL INTERNSHIP made aware.
[2024-02-19 22:30] LABS: Glucose - Point of Care 144 mg/dl (70-99)
[2024-02-19] MEDS: LANTUS 0.15 UNITS SC (22:58)
[2024-02-19] MEDS: SENOKOT 8.6 MG PO (22:58)
[2024-02-20] VITALS (7 sets, daily range): BP systolic 94–128; BP diastolic 62–80
[2024-02-20] MEDS: ROXICODONE 10 MG PO ×5 (00:16→20:07)
[2024-02-20 00:42] LABS: APTT 57.9 Sec (23.4-35.0)
[2024-02-20] MEDS: ROXICODONE PO (04:03)
--- NOTE | 2024-02-20 05:30 | PTCARENOTE ---
Pt c/o left side CP 7/10. Nitro SL x2 given with pain down to 0/10. T[employer]NER AND FORMER [employer]ATIC made aware.
--- NOTE | 2024-02-20 05:33 | DOWNTIME ---
There was a [employer] Client Actuarial Science Teacher Downtime on 02/20/2024 from 0100 to 02/20/2024 at 0350. Downtime documentation of patient's care, including medication administrations, has been reconciled in the electronic record per guidelines. Refer to the
patient's paper chart under the miscellaneous tab to see printed paper medication records and downtime forms.
--- NOTE | 2024-02-20 06:34 | W.PN.HOSP.TC ---
Today's Communication/Plan
-
Continue evaluation for Cardiac bypass
reduce Oxy
c/w IV Heparin
Appreciate cardiology and CT surgery help
Assessment / Plan
Assessment / Plan
Physical Exam
NAD, resting comfortably in bed
HEENT: no deformities, scleral anicteric. Moist mucous membranes.
Lungs: CTA bilateral
Heart: S1S2
Abdomen: Soft nontender nondistended bowel sounds active
Legs: No peripheral pitting edema
Neurological: Moves extremities spontaneously. AAOx3
Psych: calm, pleasant
Assessment and Plan
# NSTEMI
s/p LHC on 02/18 c/w multivessel CAD, recommends bypass grafting
c/w IV Heparin drip, BB, Statin
Stopped REYMUNDO due to anticipated surgery and low BP.
Echocardiogram on February 17 showed LVEF 50 to 55%, normal left ventricular size and function. Mild concentric LVH, no significant valvular disease.
-Cardiology & CT surgery are following, appreciate help
# Pre- Op evaluation for cardiac bypass surgery
CT chest : no acute findings to hold surgery
Vascular US & pending
PFT is done
#IDDM
better controlled. Will modify when she in NPO for surgery
c/w diabetic diet
-AccuCheck
-SSi, long and short acting
-CCDiet
-A1c 11.8 c/w poorly controlled diabetes.
# hx of depression/ bipolar disorder
Mood is cooperative
c/w olanzapine 20 mg
#HLD
-LDL in the 200's
--Crestor started
#Chronic pain syndrome with opioid dependency
- Reduce home dose oxycodone
# Active tobacco Smoker
Counseled to quit.
#Diabetic polyneuropathy, c/w Gabapentin
# Leukocytosis, reactive
no Fevers
# Constipation, due to opioid use
c/w Senna
Total time spent to see the patient, examine the patient on the floor, review data and lab results, discuss treatment plan with patient, nursing staff around 55 minutes
Anticipated Discharge: > 48 hours
Subjective/Interval History
-
Date of Service: February 20, 2024
No chest pain, no sob over night
Objective Data
-
Labs:
Laboratory Results
02/19/24 02/20/24 02/20/24
14:30 00:23 06:00
WBC Pending
Hgb Pending
Hct Pending
Plt Count Pending
PT Pending
INR Pending
APTT Cancelled 57.9 H Pending
Sodium Pending
Potassium Pending
Chloride Pending
Carbon Dioxide Pending
BUN Pending
Creatinine Pending
Glucose Pending
Calcium Pending
Vital Signs:
Vital Signs
Temp Pulse Resp BP Pulse Ox
98.2 F 91 17 121/80 94
02/20/24 04:02 02/20/24 05:00 02/20/24 04:02 02/20/24 04:00 02/20/24 04:02
I&O
02/18/24 02/19/24 02/20/24
06:59 06:59 06:59
Intake Total 828.8 / 828.8 480 / 480 1150 / 1150
Balance 828.8 / 828.8 480 / 480 1150 / 1150
[2024-02-20 06:54] LABS: Hematocrit 47.7 % (37.0-47.0); Hemoglobin 15.9 g/dL (12.0-16.0); Mean Corp Hgb Conc. 33.3 g/dL (33.0-37.0); Mean Corpuscular Hgb 31.1 pg (27.0-31.0); Mean Corpuscular Volume 93.2 fL (81.0-99.0); Mean Platelet Volume 11.7 fL (7.4-10.4); Platelet Count 200 10^3/uL (130-400); Red Blood Cell Count 5.12 10^6/uL (4.20-5.40); Red Cell Dist. Width 12.7 % (11.5-14.5); White Blood Cell Count 15.7 10^3/uL (4.8-10.8)
[2024-02-20 07:19] LABS: INR 0.94; PT 12.8 Sec (11.4-14.6)
[2024-02-20 07:22] LABS: APTT 80.1 Sec (23.4-35.0)
[2024-02-20 07:51] LABS: Blood Urea Nitrogen 21 mg/dl (7-17); Calcium 9.1 mg/dl (8.4-10.2); Carbon Dioxide 25 mmol/L (22-30); Chloride 103 mmol/L (98-107); Estimated Creatinine Clearance 59 ml/min; Glucose 144 mg/dl (70-99); Potassium 4.8 mmol/L (3.5-5.1); Sodium 140 mmol/L (135-145); eGFR > 60.00
--- NOTE | 2024-02-20 08:00 | PTCARENOTE ---
received patient at change of shift from previous RN. walking rounds completed. pt resting in bed. AAOX3. pt denies pain at this time. SR on telemtry heart rate in 80s. pulses palpable. pt on room air, sat 97%. lung sounds diminished in bases.
active bowel sounds, abdomen round distended. voiding in bathroom without difficulty. right cath site ecchymotic. heparin gtt infusing per protocol. see worklist for full nursing assessment and interventions. pt updated on plan of care.
[2024-02-20] MEDS: NEURONTIN 1600 MG PO ×3 (08:04→23:06)
[2024-02-20] MEDS: LOW STRENGTH ASPIRIN 81 MG PO (08:05)
[2024-02-20] MEDS: SENOKOT 8.6 MG PO ×2 (08:05→20:07)
[2024-02-20] MEDS: FARXIGA 25 MG PO (08:05)
[2024-02-20] MEDS: LOPRESSOR 12.5 MG PO ×2 (08:05→20:07)
[2024-02-20 08:33] LABS: Glucose - Point of Care 123 mg/dl (70-99)
[2024-02-20] MEDS: NOVOLOG FLEXPEN-LOW RESISTANCE SC (08:37)
[2024-02-20] MEDS: NOVOLOG FLEXPEN 7 UNITS SC ×3 (08:39→17:36)
[2024-02-20] MEDS: HEPARIN 25000 UNITS/250 ML IV (11:16)
--- NOTE | 2024-02-20 11:46 | CM ---
Chart reviewed. Patient is independent of ADLS, lives with her aunt in a [address], 2 [facility], ambulates with a RW and SPC. Patient currently receiving home care from her daughter and niece through [address] Confirmed this with Juan the
Customer Service Rep at [phone]. Updated progress notes faxed to [phone]. Plan is for the patient to return home with VN but patient will need 40 hours of waiver services set up prior to discharge home. Patient's Farmworker [employer] who
manages this is Natalie at [phone]. Patient is getting a CABG on 02/21. Plan is for the patient to return home with CT Transitional RN and then resume VN services. CM to follow
[2024-02-20 12:57] LABS: Glucose - Point of Care 177 mg/dl (70-99)
[2024-02-20] MEDS: NOVOLOG FLEXPEN-LOW RESISTANCE 1 UNITS SC ×2 (13:32→17:36)
[2024-02-20 13:49] LABS: APTT 81.2 Sec (23.4-35.0)
--- NOTE | 2024-02-20 14:13 | W.PN.UPDATE ---
Update Note
Progress Note Update
Ongoing CT surgery assessment. tentative CABG with Dr. Davies on Thursday February 22, 2024
--- NOTE | 2024-02-20 15:16 | CM ---
Preoperative and postoperative instructions and restrictions, along with showering instructions were reviewed with the patient and her niece Gerber Zhang. I also gave the patient a Cardiac Surgery Book. Plan is for the patient to go home with CT
Transitional RN and then resume wavier services vs SNF. Patient will need a PT evaluation. Patient lives with her aunt in a [address], [address], bedroom and bathroom are on the 2nd floor, ambulates with a RW. Patient receives VN by her daughter and
niece through [id number] alone with 140 hour Waiver Services. Patients Crystal Finisher is Juan and her contact number is [phone]. CM to follow
--- NOTE | 2024-02-20 16:41 | W.PN.CARDCBS ---
Addendum entered and electronically signed by Bernardo Marcial MD 02/20/24 17:00:
I saw and examined the patient.
The Auto Polisher's note was reviewed and I agree with the note.
Comment:
GEN: No distress, awake, Ox3
HEENT: supple, anicteric, mmm
LUNGS: CTA, no wheezes/rales
CV: Reg, S1/S2, 1/6 syst LSB, no gallop
ABD: soft, BS+, NT/ND
EXT: No edema
NEURO: Gross non-focal
SKIN: No rash
Plan:
Cath results reviewed. She has three-vessel coronary artery disease. Await CT surgery evaluation. Possible CABG Sunday.
Continue aspirin, Crestor, and heparin.
Continue Farxiga and metoprolol.
Original Note:
Today's Communication / Plan
-
CT surgery evaluation ongoing.
Continue aspirin 81 mg daily
Continue Crestor 40 mg daily.
Tentatively for CABG Sunday.
Continue heparin
Impression / Plan
-
Impression:
Unstable angina, troponin peak 0.7
Recent admit [facility] for [place], signed out AMA
Multivessel CAD by cath 02/19/2024
DM-2 Insulin
Hyperlipidemia, admits to poor compliance, LDL 241
Chronic back pain on oxycodone and on disability
5 spinal fusion surgeries
Active smoker
Leukocytosis, improved
Elevated AST
Echo 02/18/2024: EF 50 to 55%, mild concentric LVH, no significant valve disease
Plan:
-Patient with chest pain on admission after signing out from [facility] at [facility]' last week.
-[facility] 02/19/[address] surgery evaluation underway. Tentative plan for CABG with Dr. Davies 02/22/2024.
-Continue aspirin 81 mg daily.
-Continue heparin drip
-Continue Lopressor 12.5 mg twice daily. Blood pressure stable.
-New to Crestor at 40 mg HS, LDL 241
-Hgb A1c 11.8%. Continue DM management per primary service.
Progress Note - Serger
Subjective
Date of Service: February 20, 2024
No further chest pain noted
Objective
Labs:
02/20/24 06:44
02/20/24 06:44
Labs
Hgb 15.9 g/dL (12.0-16.0) 02/20/24 06:44
Hct 47.7 % (37.0-47.0) H 02/20/24 06:44
Plt Count 200 10^3/uL (130-400) 02/20/24 06:44
PT 12.8 Sec (11.4-14.6) 02/20/24 06:44
INR 0.94 02/20/24 06:44
APTT 81.2 Sec (23.4-35.0) H 02/20/24 13:25
Sodium 140 mmol/L (135-145) 02/20/24 06:44
Potassium 4.8 mmol/L (3.5-5.1) 02/20/24 06:44
BUN 21 mg/dl (7-17) H 02/20/24 06:44
Creatinine 1.0 mg/dL (0.6-1.0) 02/20/24 06:44
Glucose 144 mg/dl (70-99) H 02/20/24 06:44
Troponins
02/19/24
12:03
Troponin I 0.180 H*
Vital Signs and I&O:
Vital Signs
Temp Pulse Resp BP Pulse Ox
98.8 F 112 20 102/73 97
02/20/24 15:20 02/20/24 16:00 02/20/24 15:20 02/20/24 15:22 02/20/24 15:20
Vital Signs
Temp Pulse Resp BP Pulse Ox
98.8 F 112 20 102/73 97
02/20/24 15:20 02/20/24 16:00 02/20/24 15:20 02/20/24 15:22 02/20/24 15:20
Intake & Output
02/18/24 02/19/24 02/20/24 02/21/24
06:59 06:59 06:59 06:59
Intake Total 828.8 / 828.8 480 / 480 1150 / 1150 480 / 480
Balance 828.8 / 828.8 480 / 480 1150 / 1150 480 / 480
[2024-02-20 17:35] LABS: Glucose - Point of Care 194 mg/dl (70-99)
[2024-02-20] MEDS: CRESTOR 40 MG PO (17:36)
--- NOTE | 2024-02-20 23:00 | PTCARENOTE ---
Pt received at change of shift. VSS, SR/sinus tachy on tele with HR 90s-110, up to 120s with ambulation. Cath site c/d/i with no complications noted. Denies CP. Heparin gtt currently infusing at 15.5ml/hr. Ambulating independently in room
without difficulty. Can make needs known. Call elliott within reach.
[2024-02-20] MEDS: LANTUS 0.15 UNITS SC (23:06)
[2024-02-20] MEDS: ZYPREXA 20 MG PO (23:06)
[2024-02-20] MEDS: ELAVIL 75 MG PO (23:06)
[2024-02-20 23:11] LABS: Glucose - Point of Care 147 mg/dl (70-99)
[2024-02-21] VITALS (7 sets, daily range): BP systolic 104–141; BP diastolic 67–80; BMI 25.9
[2024-02-21] MEDS: ROXICODONE PO (01:23)
[2024-02-21] MEDS: HEPARIN 25000 UNITS/250 ML IV ×2 (05:23→21:01)
[2024-02-21] MEDS: ROXICODONE 10 MG PO ×5 (05:24→20:04)
[2024-02-21 05:48] LABS: Hematocrit 44.8 % (37.0-47.0); Hemoglobin 14.9 g/dL (12.0-16.0); Mean Corp Hgb Conc. 33.3 g/dL (33.0-37.0); Mean Corpuscular Hgb 30.3 pg (27.0-31.0); Mean Corpuscular Volume 91.2 fL (81.0-99.0); Mean Platelet Volume 11.6 fL (7.4-10.4); Platelet Count 190 10^3/uL (130-400); Red Blood Cell Count 4.91 10^6/uL (4.20-5.40); Red Cell Dist. Width 12.8 % (11.5-14.5); White Blood Cell Count 14.7 10^3/uL (4.8-10.8)
[2024-02-21 05:56] LABS: APTT 83.8 Sec (23.4-35.0)
[2024-02-21 06:12] LABS: Blood Urea Nitrogen 20 mg/dl (7-17); Calcium 9.1 mg/dl (8.4-10.2); Carbon Dioxide 24 mmol/L (22-30); Chloride 102 mmol/L (98-107); Estimated Creatinine Clearance 59 ml/min; Glucose 127 mg/dl (70-99); Potassium 4.6 mmol/L (3.5-5.1); Sodium 137 mmol/L (135-145); eGFR > 60.00
--- NOTE | 2024-02-21 06:40 | W.PN.HOSP.TC ---
Today's Communication/Plan
-
Per CT surgery: tentative CABG with Dr. Davies on Wednesday 02/21
c/w IV heparin
Reduce HS Lantus to 7 units tonight. NPO past midnight
Assessment / Plan
Assessment / Plan
Physical Exam
NAD, resting comfortably in bed
HEENT: no deformities, scleral anicteric. Moist mucous membranes.
Lungs: CTA bilateral
Heart: S1S2
Abdomen: Soft nontender nondistended bowel sounds active
Legs: No peripheral pitting edema
Neurological: Moves extremities spontaneously. AAOx3
Psych: calm, pleasant
Assessment and Plan
# NSTEMI
s/p LHC on 02/18 c/w multivessel CAD, recommends bypass grafting
c/w IV Heparin drip, BB, Statin
Stopped REYMUNDO due to anticipated surgery and low BP.
Echocardiogram on February 17 showed LVEF 50 to 55%, normal left ventricular size and function. Mild concentric LVH, no significant valvular disease.
-Cardiology & CT surgery are following, appreciate help
# Pre- Op evaluation for cardiac bypass surgery
CT chest : no acute findings to hold surgery
Vascular US , Carotids, no significant stenosis
PFT is done
#IDDM
better controlled. Will modify when she in NPO for surgery
c/w diabetic diet
-AccuCheck
-SSi, long and short acting
-CCDiet
-A1c 11.8 c/w poorly controlled diabetes.
# hx of depression/ bipolar disorder
Mood is cooperative
c/w olanzapine 20 mg
#HLD
-LDL in the 200's
--Crestor started
#Chronic pain syndrome with opioid dependency
- Reduce home dose oxycodone
# Active tobacco Smoker
Counseled to quit.
#Diabetic polyneuropathy, c/w Gabapentin
# Leukocytosis, reactive
no Fevers
# Constipation, due to opioid use
c/w Senna
Total time spent to see the patient, examine the patient on the floor, review data and lab results, discuss treatment plan with patient, nursing staff around 55 minutes
Anticipated Discharge: > 48 hours
Subjective/Interval History
-
Date of Service: February 21, 2024
No chest pain
No sob
Objective Data
-
Labs:
Laboratory Results
02/21/24
05:36
WBC 14.7 H
Hgb 14.9
Hct 44.8
Plt Count 190
APTT 83.8 H
Sodium 137
Potassium 4.6
Chloride 102
Carbon Dioxide 24
BUN 20 H
Creatinine 1.0
Glucose 127 H
Calcium 9.1
Vital Signs:
Vital Signs
Temp Pulse Resp BP Pulse Ox
97.9 F 100 20 107/78 94
02/21/24 05:27 02/21/24 05:20 02/21/24 05:27 02/21/24 05:20 02/21/24 05:27
I&O
02/19/24 02/20/24 02/21/24
06:59 06:59 06:59
Intake Total 480 / 480 1150 / 1150 1146 / 1146
Balance 480 / 480 1150 / 1150 1146 / 1146
[2024-02-21 07:05] LABS: Urine Albumin Trace (Neg - Trace); Urine Bilirubin Negative (Negative); Urine Character Clear (Clear); Urine Color Yellow; Urine Glucose 3+ (Negative); Urine Ketone Negative (Negative); Urine Leukocyte Negative (Negative); Urine Nitrite Negative (Negative); Urine Occult Blood Negative (Negative); Urine Urobilinogen Negative (Neg - 1+)
[2024-02-21 07:15] LABS: Glucose - Point of Care 117 mg/dl (70-99)
[2024-02-21 08:02] LABS: Glucose - Point of Care 112 mg/dl (70-99)
[2024-02-21] MEDS: NOVOLOG FLEXPEN-LOW RESISTANCE SC ×3 (08:02→15:43)
[2024-02-21] MEDS: NOVOLOG FLEXPEN 7 UNITS SC (08:02)
[2024-02-21] MEDS: NEURONTIN 1600 MG PO ×3 (08:03→21:49)
[2024-02-21] MEDS: LOW STRENGTH ASPIRIN 81 MG PO (08:04)
[2024-02-21] MEDS: SENOKOT 8.6 MG PO ×2 (08:04→20:04)
[2024-02-21] MEDS: LOPRESSOR 12.5 MG PO ×2 (08:04→19:59)
--- NOTE | 2024-02-21 09:31 | W.PN.CARDCBS ---
Today's Communication / Plan
-
Continue IV heparin, aspirin, metoprolol, and Crestor.
Plan for CABG in AM.
Impression / Plan
-
Impression:
Unstable angina, troponin peak 0.7
Recent admit [facility] for [place], signed out AMA
Multivessel CAD by cath 02/19/2024
DM-2 Insulin
Hyperlipidemia, admits to poor compliance, LDL 241
Chronic back pain on oxycodone and on disability
5 spinal fusion surgeries
Active smoker
Leukocytosis, improved
Elevated AST
Echo 02/18/2024: EF 50 to 55%, mild concentric LVH, no significant valve disease
Plan:
-Patient with chest pain on admission after signing out from [facility] at [facility]' last week.
-[facility] 02/19/2024 with multivessel CAD. Tentative plan for CABG with Dr. Davies 02/22/2024.
-Continue aspirin 81 mg daily.
-Continue heparin drip
-Continue Lopressor 12.5 mg twice daily. Blood pressure stable.
-New to Crestor at 40 mg HS, LDL 241
-Hgb A1c 11.8%. Continue DM management per primary service. Cont [place]
Progress Note - Side Show Entertainer
Subjective
Date of Service: February 21, 2024
No new chest pains.
Objective
Labs:
02/21/24 05:36
02/21/24 05:36
Labs
Hgb 14.9 g/dL (12.0-16.0) 02/21/24 05:36
Hct 44.8 % (37.0-47.0) 02/21/24 05:36
Plt Count 190 10^3/uL (130-400) 02/21/24 05:36
PT 12.8 Sec (11.4-14.6) 02/20/24 06:44
INR 0.94 02/20/24 06:44
APTT 83.8 Sec (23.4-35.0) H 02/21/24 05:36
Sodium 137 mmol/L (135-145) 02/21/24 05:36
Potassium 4.6 mmol/L (3.5-5.1) 02/21/24 05:36
BUN 20 mg/dl (7-17) H 02/21/24 05:36
Creatinine 1.0 mg/dL (0.6-1.0) 02/21/24 05:36
Glucose 127 mg/dl (70-99) H 02/21/24 05:36
Troponins
02/19/24
12:03
Troponin I 0.180 H*
Vital Signs and I&O:
Vital Signs
Temp Pulse Resp BP Pulse Ox
97.7 F 100 20 108/75 94
02/21/24 07:12 02/21/24 08:04 02/21/24 07:12 02/21/24 08:04 02/21/24 07:12
Vital Signs
Temp Pulse Resp BP Pulse Ox
97.7 F 100 20 108/75 94
02/21/24 07:12 02/21/24 08:04 02/21/24 07:12 02/21/24 08:04 02/21/24 07:12
Intake & Output
02/19/24 02/20/24 02/21/24 02/22/24
06:59 06:59 06:59 06:59
Intake Total 480 / 480 1150 / 1150 1146 / 1146
Balance 480 / 480 1150 / 1150 1146 / 1146
Physical Exam
Physical Exam
GEN: No distress, awake, Ox3
HEENT: supple, anicteric, mmm
LUNGS: CTA, no wheezes/rales
CV: Reg, S1/S2, 1/6 syst LSB, no gallop
ABD: soft, BS+, NT/ND
EXT: No edema
NEURO: Gross non-focal
SKIN: No rash
[2024-02-21] MEDS: NOVOLOG FLEXPEN 5 UNITS SC (11:39)
[2024-02-21 11:40] LABS: Glucose - Point of Care 125 mg/dl (70-99)
--- NOTE | 2024-02-21 14:40 | W.PN.UPDATE ---
Update Note
Progress Note Update
Procedure Type:�Isolated CABG
PERIOPERATIVE OUTCOME ESTIMATE %
Operative Mortality 1.5%
Morbidity & Mortality 7.91%
Stroke 1.54%
Renal Failure 0.639%
Reoperation 2.19%
Prolonged Ventilation 4.69%
Deep Sternal Wound Infection 0.463%
Long Hospital Stay (>14 days) 2.88%
Short Hospital Stay (<6 days)* 53.8%
Clinical Summary
Planned Surgery: Isolated CABG, Urgent, First cardiovascular surgery
Demographics: 53 year old, , female, 71.7kg, 165cm, BMI: 26.3 kg/m�
Lab Values: Creatinine: 1 mg/dL, Hematocrit: 44.8%, WBC Count: 14.7 10�/�L, Platelet Count: 592510 cells/�L
PreOp Medications: Insulin diabetes control
Substance Abuse: Current smoker
Risk Factors / Comorbidities: Insulin-dependent Diabetes Mellitus, Family Hx of CAD
Pulmonary RF: Severity Unknown CLD
Cardiac Status: NYHA Class II, Ejection Fraction = 50%
Coronary Artery Disease: 3 vessels diseased, Left Main Stenosis >=50%, Non-ST Elevation NM, NM: 1 to 7 Days
Valve Disease: Trivial/Trace MR, Trivial/Trace TR
[2024-02-21 15:28] LABS: Glucose - Point of Care 110 mg/dl (70-99)
--- NOTE | 2024-02-21 16:00 | PTCARENOTE ---
Patient remains on room air, denies chest pain and shortness of breath, ambulating around room without assistance. Pt has heparin gtt infusing per protocol. PT updated on plan of care and transfer to ICU for CVOR in am.
[2024-02-21] MEDS: CRESTOR 40 MG PO (17:45)
[2024-02-21] MEDS: NOVOLOG FLEXPEN SC (17:45)
--- NOTE | 2024-02-21 20:09 | PTCARENOTE ---
Received pt dayshift, transfer completed from IVU to CVICU. Pt assessment completed with pt sitting on side of the bed. Pt is AAOx4. No neuro deficits noted. Sinus Tachycardia on monitor. HR 120's, B/P 104/67. Pulses palpable. Negative edema. Lungs
clear, diminished in bases. POX 97% RA. Pt voiding in bathroom, clear, dark yellow liquid. NBS, abdomen round, soft, non-tender. Last BM 02/18/24. Pt reports hx. right sided hand weakness and trigger finger due to carpal tunnel. Discussed plan of
care with pt. Pt agrees to plan. Pt family at bedside.
[2024-02-21 21:46] LABS: Glucose - Point of Care 234 mg/dl (70-99)
[2024-02-21] MEDS: ELAVIL 75 MG PO (21:48)
[2024-02-21] MEDS: LANTUS 0.07 UNITS SC (21:49)
[2024-02-21] MEDS: ZYPREXA 20 MG PO (21:50)
--- NOTE | 2024-02-21 22:38 | PTCARENOTE ---
VSS. Pt Sinus tachycardia on monitor. HR 101, B/P 104/67. PM care and oral care provided. Pt shaved for surgery. Pt completed first shower using Gosia-Hex 4 chlorhexidine gluconate 4% solution scrub. All new bedding in place. Pt resting in bed. Will
continue to monitor pt needs.
--- NOTE | 2024-02-21 23:52 | PTCARENOTE ---
VSS. NSR on monitor. Pt sleeping without difficulty. Assessment unchanged. Will continue to monitor pt needs.
[2024-02-22] VITALS (9 sets, daily range): BP systolic 92–110; BP diastolic 67–80; BMI 25.8
[2024-02-22] MEDS: ROXICODONE PO ×5 (00:50→20:00)
[2024-02-22] MEDS: ROXICODONE 10 MG PO ×2 (04:05→22:09)
[2024-02-22 04:35] LABS: APTT 73.9 Sec (23.4-35.0)
--- NOTE | 2024-02-22 04:38 | PTCARENOTE ---
VSS. Pt in Sinus Tachycardia on monitor. HR: 102, B/P: 103/73. Bi-lateral B/P taken and weight obtained. AM labs drawn and sent. Pt completed oral care and 2nd shower using Gosia-Hex 4 chlorhexidine gluconate 4% solution scrub. All new bedding in
place. Pt resting in bed. Will continue to monitor pt needs.
[2024-02-22 04:40] LABS: Hemoglobin 14.9 g/dL (12.0-16.0); Mean Corp Hgb Conc. 32.4 g/dL (33.0-37.0); Mean Corpuscular Hgb 30.6 pg (27.0-31.0); Mean Corpuscular Volume 94.5 fL (81.0-99.0); Mean Platelet Volume 11.7 fL (7.4-10.4); Platelet Count 199 10^3/uL (130-400); Red Blood Cell Count 4.87 10^6/uL (4.20-5.40); Red Cell Dist. Width 12.8 % (11.5-14.5); White Blood Cell Count 13.1 10^3/uL (4.8-10.8)
[2024-02-22 04:46] LABS: Blood Urea Nitrogen 26 mg/dl (7-17); Calcium 8.9 mg/dl (8.4-10.2); Carbon Dioxide 28 mmol/L (22-30); Chloride 99 mmol/L (98-107); Estimated Creatinine Clearance 53 ml/min; Glucose 199 mg/dl (70-99); Potassium 4.4 mmol/L (3.5-5.1); Sodium 137 mmol/L (135-145); eGFR > 60.00
[2024-02-22 05:56] LABS: Glucose - Point of Care 241 mg/dl (70-99)
[2024-02-22] MEDS: MAGNESIUM OXIDE 500 MG PO (05:56)
[2024-02-22] MEDS: PROTONIX 40 MG PO (05:56)
[2024-02-22] MEDS: LOPRESSOR 25 MG PO (05:56)
[2024-02-22] MEDS: BACTROBAN 2% OINTMENT 1 APPLIC NASAL ×2 (05:59→21:11)
--- NOTE | 2024-02-22 06:20 | W.CVOR.SURPR ---
CVOR Surgeon Immed Pre Op
-
I have examined this patient prior to performance of the scheduled procedure.
The patient's condition is unchanged from the time of the dictated/written History and
Physical and the patient is able to undergo the scheduled procedure.
CABG x 3, Ideally will receive multi arterial grafting given her age, radial is not usable, she understands the risk of BIMAs in patients with A1c >7, will plate her chest as well. Will need more aggressive glucose control post surgery.
[2024-02-22] MEDS: NOVOLOG FLEXPEN SC ×4 (07:31→16:34)
[2024-02-22] MEDS: NOVOLOG FLEXPEN-LOW RESISTANCE 2 UNITS SC (07:34)
[2024-02-22 07:35] LABS: Glucose - Point of Care 217 mg/dl (70-99)
--- NOTE | 2024-02-22 09:27 | CM ---
Reviewed chart. Ms. Alvarez is in the operating room today. Prior to admission she resides with her aunt in [place] with two steps to enter. Prior to admission she ambulates with a swalker or a single point cane. She has a walker and single
point cane at home. Prior to admission she was getting home care services thru the Waiver Program. These services will need to be set up prior to discharge. Medical work-up in progress. The discharge plan is to return home with her aunt and home
care services thru the waiver program and [facility] if indicated when medically stable.
--- NOTE | 2024-02-22 10:30 | PTCARENOTE ---
Patient transferred to CVOR via bed. 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
[2024-02-22 10:41] LABS: ACT+ - POC 107 Seconds (82-134)
[2024-02-22 11:56] LABS: Urine Albumin Negative (Neg - Trace); Urine Bilirubin Negative (Negative); Urine Character Slightly Cloudy (Clear); Urine Color Yellow; Urine Glucose 3+ (Negative); Urine Ketone Negative (Negative); Urine Leukocyte Negative (Negative); Urine Nitrite Negative (Negative); Urine Occult Blood Negative (Negative); Urine Urobilinogen Negative (Neg - 1+)
[2024-02-22 12:36] LABS: ACT+ - POC 466 Seconds (82-134)
[2024-02-22 12:47] LABS: ACT+ - POC 475 Seconds (82-134)
[2024-02-22 13:01] LABS: B.E. - POC -3.5 mmol/L; Glucose - POC 169 mg/dl (70-99); HCO3 - POC 24 mmol/L (21-28); Hematocrit - POC 44 % PCV (37-47); Hemodilution- POC Yes; Hemoglobin Calculated - POC 14.9; Ionized Calcium - POC 1.23 mmol/L (1.15-1.33); O2 Saturation %Calculated-POC 99.9 % (94-98); PCO2 - POC 51 mmHg (35-48); PO2 - POC 335 mmHg (83-108); POC Comment PRE; Potassium - POC 4.3 mmol/L (3.5-5.1); Sodium - POC 140 mmol/L (136-145); pH - POC 7.28 (7.35-7.45)
[2024-02-22 13:09] LABS: ACT+ - POC 493 Seconds (82-134)
[2024-02-22 13:37] LABS: B.E. - POC 0.3 mmol/L; Glucose - POC 180 mg/dl (70-99); HCO3 - POC 25 mmol/L (21-28); Hematocrit - POC 33 % PCV (37-47); Hemodilution- POC Yes; Hemoglobin Calculated - POC 11.3; Ionized Calcium - POC 1.06 mmol/L (1.15-1.33); O2 Saturation %Calculated-POC 99.9 % (94-98); PCO2 - POC 41 mmHg (35-48); PO2 - POC 291 mmHg (83-108); POC Comment CPB; Potassium - POC 4.4 mmol/L (3.5-5.1); Sodium - POC 139 mmol/L (136-145)
[2024-02-22 13:44] LABS: ACT+ - POC 436 Seconds (82-134)
--- NOTE | 2024-02-22 13:44 | W.PN.UPDATE ---
Update Note
Progress Note Update
Patient is going for cardiac bypass under care of cardiothoracic surgery service
Hospitalist service will sign off
Re-consult hospitalist service if needed.
[2024-02-22 14:05] LABS: ACT+ - POC 519 Seconds (82-134)
[2024-02-22 14:15] LABS: B.E. - POC -2.4 mmol/L; Glucose - POC 172 mg/dl (70-99); HCO3 - POC 22 mmol/L (21-28); Hematocrit - POC 32 % PCV (37-47); Hemodilution- POC Yes; Ionized Calcium - POC 1.04 mmol/L (1.15-1.33); O2 Saturation %Calculated-POC 99.7 % (94-98); PCO2 - POC 38 mmHg (35-48); PO2 - POC 206 mmHg (83-108); POC Comment CPB; Potassium - POC 4.5 mmol/L (3.5-5.1); Sodium - POC 139 mmol/L (136-145); pH - POC 7.38 (7.35-7.45)
[2024-02-22 14:22] LABS: ACT+ - POC 484 Seconds (82-134)
[2024-02-22] MEDS: LOPRESSOR PO (14:26)
[2024-02-22] MEDS: LOW STRENGTH ASPIRIN PO (14:26)
[2024-02-22] MEDS: NEURONTIN PO ×2 (14:27→16:35)
[2024-02-22] MEDS: SENOKOT PO (14:27)
[2024-02-22] MEDS: NOVOLOG FLEXPEN-LOW RESISTANCE SC (14:27)
[2024-02-22 14:38] LABS: B.E. - POC 0.7 mmol/L; Glucose - POC 174 mg/dl (70-99); HCO3 - POC 26 mmol/L (21-28); Hematocrit - POC 33 % PCV (37-47); Hemodilution- POC Yes; Hemoglobin Calculated - POC 11.3; Ionized Calcium - POC 1.02 mmol/L (1.15-1.33); O2 Saturation %Calculated-POC 99.9 % (94-98); PCO2 - POC 42 mmHg (35-48); PO2 - POC 291 mmHg (83-108); POC Comment WARM; Potassium - POC 4.5 mmol/L (3.5-5.1); Sodium - POC 140 mmol/L (136-145); pH - POC 7.39 (7.35-7.45)
[2024-02-22 14:44] LABS: ACT+ - POC 123 Seconds (82-134)
[2024-02-22 14:48] LABS: Glucose - POC 134 mg/dl (70-99); HCO3 - POC 23 mmol/L (21-28); Hematocrit - POC 31 % PCV (37-47); Hemodilution- POC Yes; Hemoglobin Calculated - POC 10.6; O2 Saturation %Calculated-POC 99.2 % (94-98); PCO2 - POC 42 mmHg (35-48); PO2 - POC 147 mmHg (83-108); POC Comment POST; Potassium - POC 3.6 mmol/L (3.5-5.1); Sodium - POC 143 mmol/L (136-145); pH - POC 7.36 (7.35-7.45)
--- NOTE | 2024-02-22 14:50 | CON.INTV ---
Consultation
Consultation Request
Date/Time Consultation Requested: 02/22/24
Date/Time Consultation Performed: 02/22/24
Performing Provider: Marcelo
Reason for Consultation: CVICU
Medical History
-
History of Present Illness:
Patient is a 53-year-old female with previous history of diabetes, hyperlipidemia, spinal fusions on chronic oxycodone presenting to outside hospital with chest discomfort and underwent cardiac catheterization, no records are available at present.
She signed out AMA from that facility and re-presents at ER. On arrival, she has notable increased troponin elevation 0.756 underwent cardiac catheterization on 02/19/2024 with demonstrated multivessel CAD. Underwent CT surgery evaluation and
scheduled for CABG x 3. Underwent procedure on 02/22/2024 and transferred postoperatively to CVICU.
Past Medical History
Past Medical History: Other (see list below)
Social History
Tobacco: Former Smoker
Alcohol: None
Drug: None
Family History
Family History: Reviewed & Not Pertinent
Allergies / Home Medications
Allergies
Allergy/AdvReac Type Severity Reaction Status Date / Time
hydromorphone [From Dilaudid] Allergy Rash Verified 02/16/24 15:58
Home Medications
�Medication �Instructions �Recorded �Confirmed �Last Taken �Type
albuterol sulfate 90 mcg/actuation 2 puff inhalation R Q6HPRN PRN sob 02/16/24 02/16/24 Unknown History
aerosol inhaler
amitriptyline 25 mg tablet 75 mg PO HS NEUROPATHY 02/16/24 02/16/24 Unknown History
dulaglutide 3 mg/0.5 mL 3 mg SC TU Diabetes 02/16/24 02/16/24 Unknown History
subcutaneous pen injector
(Trulicity)
empagliflozin 25 mg tablet 25 mg PO DAILY Diabetes 02/16/24 02/16/24 Unknown History
(Jardiance)
gabapentin 800 mg tablet 1,600 mg PO TID NEUROPATHY 02/16/24 02/16/24 Unknown History
insulin aspart U-100 100 unit/mL 30 unit SC TID Diabetes 02/16/24 02/16/24 Unknown History
subcutaneous solution
insulin glargine 100 unit/mL (3 30 unit SC HS Diabetes 02/16/24 02/16/24 Unknown History
mL) subcutaneous pen (Lantus
Solostar U-100 Insulin)
olanzapine 20 mg tablet 20 mg PO HS Depression/ Bipolar 02/16/24 02/16/24 Unknown History
oxycodone 10 mg tablet 10 mg PO Q4H Pain 02/16/24 02/16/24 Unknown History
Review of Systems
-
Unable to Obtain full review of systems at this time due to: Patient Intubation
Vitals / Labs / Diagnostic Testing
Vital Signs
Temp Pulse Resp BP Pulse Ox
98.2 F 87 21 104/71 93
02/22/24 03:57 02/22/24 10:00 02/22/24 09:00 02/22/24 05:57 02/22/24 03:58
Laboratory Results
02/22/24
04:12
APTT 73.9 H
Diagnostic Testing:
Physical Exam
-
HEENT: Normocephalic, Anicteric and Moist Mucous Membranes
Cardiovascular: S1/S2 and Regular Rhythm
Respiratory: Clear, Non-Labored Respirations and Other (ETT/chest tube)
GI: Soft, Non Distended and Non Tender
Neurology: Other (sedated/intubated)
Skin: Warm, Dry and Good Color
General: Comfortable and Other (NAD)
Assessment
-
Patient is a 53-year-old female with previous history of diabetes, hyperlipidemia, spinal fusions on chronic oxycodone presenting to outside hospital with chest discomfort and underwent cardiac catheterization, no records are available at present.
She signed out AMA from that facility and re-presents at ER. On arrival, she has notable increased troponin elevation 0.756 underwent cardiac catheterization on 02/19/2024 with demonstrated multivessel CAD. Underwent CT surgery evaluation and
scheduled for CABG x 3. Underwent procedure on 02/22/2024 and transferred postoperatively to CVICU.
Multivessel CAD status post CABG 02/22/24
NSTEMI Rule in, elevated troponin
Chest pain
COPD, moderate on PFT
Perioperative mechanical ventilation
Emphysema on CT
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
Current smoker
Diabetes
Diabetic neuropathy
Bipolar/depression
Chronic pain syndrome on opiates
Plan
S/p CAb x2 POD #0
Titrate off pressors per protocol
ECHO reviewed with low function, LHC reviewed with 2-v CAD
PA catheter readings reviewed
Management of chest tubes per primary service
Intubated/sedated, initiate SAT when able
Pain control
RASS goal of 0 to -1
Intubated for procedure, SBT trial when patient able to spontaneously breath
Current vent settings reviewed
ABG(s) reviewed/adequate
CXR with no obvious opacities/infiltrates, overall normal
Extubate per protocol
Maintain supplement oxygen as needed
Prior history of pulmonary disease: asthma noted and is a current smoker
Prior PFTs reviewed--moderate obstruction noted, could have ACOS
Can add nebulizers if needed
Aspiration precautions
Encouraged incentive spirometry, OOB/ambulation/early mobility
Advance diet as tolerated following extubation
GI prophylaxis if indicated for mechanical ventilation >48 hours
Monitor critical I/O's
Srinivasan/chest tube output
Hb/platelets postoperatively stable
Trend CBC for now
Can transfuse if indicated for Hb <7, plt <50 in surgical patients
DVT prophylaxis including SCDs
Insulin protocol initiated and ongoing
Transition to SQ/off as indicated per team
We will follow
Diagnostic Data
Chest X-Ray: 02/19/24- No acute cardiopulmonary process.
02/16/24- No acute cardiopulmonary abnormality.
CT Scan: CHEST 02/19/24- Minor dependent pleural parenchymal thickening in the lung bases, consistent with atelectasis. No evidence of pneumonia. Mild COPD. No suspicious pulmonary mass. No evidence of pneumonia. No pleural or pericardial effusion.
No pneumothorax.
Echo: HU 02/22/24- Mild global hypokinesis of the left ventricle. LVEF is 45-50% with no regional wall motion abnormalities present. The cardiac valves are grossly normal in structure and function.
Small [id number] ASD seen. Grade III atheromatous disease of the aortic arch and descending thoracic aorta.
[facility] [place] 02/19/24- CONCLUSIONS
1. Multivessel coronary artery disease.
2. New normal LVEDP at 13 mmHg.
PFT's: 02/19/24-FEV1 2.06 L 75%, FVC 2.72 L 78%, ratio 76. Post FEV1 2.14 L 78%, FVC 3.45 L 99% with 27% change, ratio 62 (moderate obstruction)
Reports and relevant images were personally reviewed.
-----
Critical Care time 55 mins -- The patient is admitted for acute critical illness for the treatment of vital organ failure and/or prevention of further life-threatening conditions. Total care includes time spent in review of history, physical exam,
medications, hemodynamic/ventilator parameters, laboratory data, imaging and discussion with house staff, pharmacy, respiratory therapy, operating cost clerk, and nursing.
--- NOTE | 2024-02-22 15:10 | W.PN.CT.SURG ---
CT Surgery Operative Note
-
CARDIAC SURGERY OPERATIVE REPORT
Preoperative Diagnosis: Multivessel Coronary Artery Disease with NSTEMI and severe diabetes
Postoperative Diagnosis: Same
Procedure(s) Performed:
1. Standard sternotomy with aortic and right atrial cannulation
2. Endoscopic harvesting the right lower extremity
3. Multi arterial coronary artery bypass grafting x 3 (In situ HANEY to LAD, HANK y'd off of the HANEY to OM branch, ao to RSVG to distal RCA)
4. Transesophageal echocardiography
5. Placement temporary to the pacing wire
6. Rigid sternal fixation with 3 plates [mustache plate, bridge plate, square plate]
7. Regional block by anesthesia
Date of Surgery: 02/22/24
Comorbidities:
1. NSTEMI with multivessel coronary artery disease
2. Insulin-dependent diabetes mellitus, HbA1c of 12
3. Hypertension
4. GERD hyperlipidemia
5. History of right nephrectomy secondary to hydronephrosis
6. Tobacco abuse approximately 1 pack/day for the last 45 years
7. Diabetic polyneuropathy
8. Opioid dependence/chronic pain syndrome
Attending Surgeon: Carl Davies MD, MS
Assistants: Alisson Del Toro PA-C (present and necessary to dental chairside assistant, endoscopic vein harvest, retraction, suction, exposure, suture management, and wound closure under my direction)
Anesthesiology: Rigoberto Pereira MD and Rick Rendon CRNA
Scrub and Circulating RNs: April Campos RN, Zohreh Bryan RN
Service Aide: Sarahi Izaguirre CCP
Anesthesia: GETA
EBL: per perfusion records
Products: None
CPB Time: 89 minutes
Aortic Cross Clamp Time: 61 minutes
Indication(s) for Procedures: This is a 51-year-old female who was recently diagnosed with an NSTEMI and found to have multivessel coronary artery disease. This was in [place] however we were unable to obtain her cath and she was having recurrent
chest pain and so she underwent a repeat cath. Given her diabetic status and multi arterial coronary disease involving the proximal LAD, she used referred to surgery for surgical revascularization. Her diabetes is relatively poorly controlled with
an HbA1c of 11-12 over the last several months. She tells me that her baseline sugars are in the 500s to 600s. Here in the hospital she has been around 250. Given her young age, and significant OM disease, we discussed the risk and benefits of
multi arterial revascularization. Unfortunately her left radial was unable to be used and her right radial was instrumented multiple times. The plan was to perform bilateral NORA's with the midportion of the HANK used as a Y graft off of the HANEY.
Conduit(s) Quality:
HANEY -excellent/overall small size but with good flow
HANK�excellent/good caliber and size of vessel with good flow
RSVG -excellent/good quality vein, minimal varicosities, no thickening
Target(s) Quality:
dRCA -average/heavily calcified and diseased vessel with plaque throughout. The distal RCA was identified and an end-to-side anastomosis was created after cutting through the plaque. There is excellent antegrade flow with test dosing, flow probe
assessment following bypass grafting was excellent with a mean flow in the 30s with a pulsatility index of 2
OM -average/although the size of the graft was okay, she has heavily calcified disease throughout the OM branch, is able to accommodate a 1-1/2 mm probe. The HANK was anastomosed in end-to-side fashion. There is good visual flow in the OM
territory after removal of the bulldog clamp. Due to the location of the HANK behind the heart I was unable to tested with a flow probe device.
LAD -thin-walled but overall decent sized target/the HANEY was anastomosed in end-to-side fashion, was able to come a to 1-1/2 mm probe the probe probe was used to assess both the HANEY before the bifurcation and after. Both had excellent flow with a
mean of 30 cc a minute with a pulsatility index below 5. There is also good visual flow in the LAD territory upon removal of the bulldog clamp.
Findings: Left ventricular ejection fraction preoperatively 60 to 65% with no regional wall motion abnormalities. She had mild left ventricular hypertrophy. Following surgery she had no new regional wall motion abnormalities and concentric
symmetrical contractions. The HANEY was harvested in a skeleton fashion. The midportion of the HANK was also harvested in a skeletonized fashion. A mid HANEY Y graft was performed with a 8-0 Prolene in end-to-side anastomosis. Each distal end of
the NORA's were tested by transection and visual confirmation of good flow. Following bypass grafting, test dose cardioplegia was given down each distal and confirmed patency and hemostasis. Each distal was probed both proximally and distally to
confirm disease and patency, respectively. Flow probe was used to assess the [place] HANEY before the bifurcation which had excellent flow. Flow probe was also used to assess the HANEY after the bifurcation into the HANK and also had excellent flow.
Due to the location of the HANK behind the heart I was unable to test this graft. The vein graft had excellent flow as well. She did not require any blood products, was not requiring inotropic support, and in sinus rhythm following her surgery.
Given her severe diabetes and use of her bilateral NORA's, I elected to place her chest.
Description of Procedure: The patient was taken to the operating room. Their identity and procedure to be performed were verified and they were positioned supine on the operating table. Induction via general anesthesia with endotracheal intubation
was performed and central venous access and arterial monitoring were inserted. A preoperative transesophageal echocardiogram was performed to assess cardiac function and valvular function. The patient was then prepped and draped from chin to feet in
a sterile fashion. A preoperative time-out was performed with all members of the team present. A midline chest incision was performed along with median sternotomy. Simultaneous endoscopic access of the right lower extremity for saphenous vein
harvest was obtained along with administration of an initial 5,000 units of IV heparin. A RulTract sternal retractor was positioned to exposure the left internal mammary bed. The mammary was harvested and found to have good flow. A bulldog clamp was
applied to the distal end of the mammary after dividing it. It was wrapped in a papaverine soaked RayTec and replaced back into the left hemithorax. The Rultract was then relocate over the right hemithorax. The midportion of the HANK was harvested
in a skeletonized fashion and transected distally. There is excellent flow. It was then clipped proximally and then placed into a papaverine bath. The RulTract was exchanged for a median sternal retractor. The innominate vein was isolated. Full
heparinization was given (a total of 65,000 units). We created a pericardial well. The aortic cannulation site was chosen where it was soft, pliable, and free of calcium. Cannulation was performed with an arterial cannula in the ascending aorta and
a triple-stage venous cannula through the right atrial appendage. The arterial cannula line had an appropriate bounce and correlating pressures with test dosing. Next, a root vent/antegrade cannula was inserted into the ascending aorta. The ACT was
confirmed to be over 400 and retrograde autologous priming was performed before commencing cardiopulmonary bypass. The pulmonary artery was away from the aorta to facilitate a clamp site. The HANK was then anastomosed to the HANEY in an
end-to-side fashion using 8-0 Prolene securing it with a micro core knot. There is excellent flow distally in each graft. The aortic cross-clamp was placed after decreasing the flow on the bypass and mean arterial pressure. A total of 1.0L initial
dose of antegrade Del-Nido cardioplegia solution was given and planned for re-dosing every 75 minutes as necessary. There was rapid electro-mechanical arrest of the heart at 300 cc of cardioplegia. The left ventricle was observed for distention on
echocardiogram and manual palpation. Cold slush was placed into a sponge and topically on the RV while we systemically cooled to 34 degrees centigrade.
I positioned the heart to expose the distal right coronary. A [place] blade was used to expose the coronary and perform the arteriotomy. Coronary Lyn scissors were used to enlarge the incision. The saphenous vein was trimmed and beveled to an
appropriate size. The distal anastomosis was performed using 7-0 prolene in an end-to-side fashion. Antegrade cardioplegia was administered into the graft. Appropriate hemostasis and flow were confirmed. The graft was measured for length to the
aorta and cut. A suitable site on the obtuse marginal was chosen. We dissected and prepared the distal target in a similar fashion. An end-to-side anastomosis was created with a 7-0 prolene using the HANK. Appropriate hemostasis and flow were
confirmed. There was good visual flow in the OM territory upon removal of the bulldog clamp. A suitable target on the mid/distal left anterior descending was identified. We dissected and prepared the distal target in a similar fashion. The distal
end of the HANEY was prepped and beveled to size. We verified orientation and length of the NORA and found brisk flow. An end-to-side anastomosis was created with a 7-0 prolene. We temporarily released the bulldog clamp on the mammary to inspect flow.
Perfusion to the LAD territory was visualized and hemostasis was confirmed. The bull clamp was replaced on the mammary above the bifurcation. The heart was filled and the root was distended with antegrade cardioplegia to make final assessment of
graft length and orientation. We created 1 aortotomy using a #11 blade then a 4.0mm aortic punch. The proximal anastomoses were created in an end-to-side fashion using 6-0 prolene. At the the same time, we re-warmed to 36.5 degrees centigrade. The
bulldog clamp was removed from the mammary. Temporary bipolar ventricular pacing wires were placed on the base of the right ventricle. The patient was placed in a Trendelenburg position and flows on bypass were lowered. The aortic cross clamp was
removed and flows were slowly brought back up. A 30-gauge needle was used to de-air the vein graft. All bypass grafts were inspected and were free from kinking or twisting. The distal and proximal anastomoses appeared hemostatic. Once
transesophageal echocardiography appeared satisfactory for de-airing, the flows were temporarily lowered for root vent removal. After verifying acceptable parameters, we initiated weaning from cardiopulmonary bypass. Once we were off cardiopulmonary
bypass, the venous cannula was clamped and removed. A test dose of protamine was administered and the patient was monitored for any adverse reaction before resuming protamine. Once half of the protamine dose was delivered, pump suckers were turned
off and the systolic blood pressure was lowered for aortic decannulation. The aortic cannula was removed and pursestrings were tied down. All cannulation sites were oversewn with a 4-0 prolene. The mammary bed was inspected and hemostasis was
confirmed. Once the mediastinum was hemostatic, 19Fr Vikas drain was placed in the left and right pleural cavity and two 24Fr Vikas drains were placed within the pericardium. The sternum was approximated with 3 #7 single and 3 #8 double stainless
steel wires and reinforced with 3 additional plates at the manubrium, manubrial sternal junction, and lower sternal body. Fascia was approximated with #1 vicryl suture. The subcutaneous, dermis and epidermis were closed in layers in a running
fashion. The skin wound was cleansed and dressed.
All instrument, sponge, and needle counts were confirmed to be correct x 2 at the end of the operation. The patient was transferred to the cardiac intensive care unit in critical but stable condition.
I, Dr. Carl Davies, was present, scrubbed for, and performed all critical elements of this procedure.
Carl Davies MD, MS
Cardiothoracic Surgeon
[facility]
This operative dictation was created using the [employer] dictation system. Please excuse any grammatical, typographical, or 'sound alike' errors
[2024-02-22 15:34] LABS: Glucose - Point of Care 122 mg/dl (70-99)
--- NOTE | 2024-02-22 15:35 | PTCARENOTE ---
received patient from [facility] sedated and placed on vent by TRAVELING SALES REPRESENTATIVE. ST on monitor. v wires present but off. CTx4. usual lines. no swan. diana draining clear yellow urine. pulses palpable. all surgical sites c/d/i. Out on precedex, levo, and insulin per
glycemic protocol. will continue to monitor.
[2024-02-22 15:40] LABS: B.E. -1.6 mmol/L; HCO3 24.3 mmol/L (21-28); O2 Saturation % 98.3 % (94-98); PCO2 45 mmHg (32-35); PO2 96 mmHg (83-108); Potassium 3.9 mMOL/L (3.5-5.1); Sodium 138 mMOL/L (136-145); pH 7.34 (7.35-7.45)
[2024-02-22 15:49] LABS: Hematocrit 33.8 % (37.0-47.0); Hemoglobin 11.2 g/dL (12.0-16.0); Platelet Count 126 10^3/uL (130-400)
[2024-02-22 15:54] LABS: PT 17.5 Sec (11.4-14.6)
[2024-02-22 15:55] LABS: APTT 31.1 Sec (23.4-35.0)
[2024-02-22 16:00] LABS: Blood Urea Nitrogen 24 mg/dl (7-17); Estimated Creatinine Clearance 73 ml/min; Glucose 125 mg/dl (70-99); Magnesium 3.6 mg/dl (1.6-2.3)
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
[2024-02-22] MEDS: PACERONE PO (16:34)
[2024-02-22] MEDS: TYLENOL PO ×2 (16:35→23:03)
[2024-02-22] MEDS: ANCEF 10 IV ×2 (16:35→16:36)
[2024-02-22] MEDS: NSS 500 IV (16:36)
[2024-02-22] MEDS: LR 250 IV (16:37)
[2024-02-22 16:41] LABS: Glucose - Point of Care 185 mg/dl (70-99)
[2024-02-22] MEDS: KCL 50 IV (16:43)
[2024-02-22] MEDS: SUBLIMAZE 50 MCG IV (17:33)
[2024-02-22] MEDS: CRESTOR PO (17:37)
[2024-02-22 17:43] LABS: Glucose - Point of Care 146 mg/dl (70-99)
--- NOTE | 2024-02-22 18:07 | PTCARENOTE ---
placed on CPAP wean. tolerating well. remains on 4 levo at this time.
[2024-02-22 18:48] LABS: Glucose - Point of Care 122 mg/dl (70-99)
[2024-02-22] MEDS: LR 1000 IV (19:00)
--- NOTE | 2024-02-22 19:00 | PTCARENOTE ---
assumed care of patient @ 1900. recieved pt laying in bed, Intubated, moves all extremities appropriately, pupils equal round and reactive . Drowsy. Sinus tach on the monitor HR 110s, CVP ~7, BP 100s-120s systolically. 8.0 ET Tube CPAP 5/5, awaiting
CPAP gas. Lungs sound coarse and diminished b/l. CT x4 to wall suction, no air leak tidaling or crepitus. BS hypoactive. Srinivasan present draining large amounts of clear yellow urine. MSI CDI, R SVG site with diana wrap CDI. R IJ cordis with SLIC, L
radial a line, PIV x2 all patent. LR running at 75/hr, levo at 4, insulin per protocol. call elliott within reach .
--- NOTE | 2024-02-22 19:08 | PTCARENOTE ---
extubation labs drawn and sent. family updated at bedside. report given to screen printing machine operator RNmavis
[2024-02-22 19:10] LABS: HCO3 24.3 mmol/L (21-28); Ionized Calcium 1.15 mMOL/L (1.15-1.33); O2 Saturation % 99.3 % (94-98); PCO2 42 mmHg (32-35); PO2 141 mmHg (83-108); Potassium 5.1 mMOL/L (3.5-5.1); pH 7.37 (7.35-7.45)
--- NOTE | 2024-02-22 19:30 | PTCARENOTE ---
pt extubated to 6L NC at 1930 without incident. satting high 90s. able to speak name and date of . Sleeping between care.
[2024-02-22] MEDS: CALCIUM GLUCONATE 100 IV (19:53)
[2024-02-22 19:59] LABS: Glucose - Point of Care 114 mg/dl (70-99)
--- NOTE | 2024-02-22 20:00 | PTCARENOTE ---
LR increased to 250/hr for 1 hour for tachycardia per CTPA.
[2024-02-22 20:17] LABS: Hematocrit 35.7 % (37.0-47.0); Hemoglobin 11.8 g/dL (12.0-16.0); Platelet Count 171 10^3/uL (130-400)
[2024-02-22] MEDS: SENOKOT-S PO (20:46)
[2024-02-22] MEDS: ELAVIL PO (20:47)
[2024-02-22] MEDS: OFIRMEV 100 IV (21:10)
[2024-02-22] MEDS: ANCEF 5 IV (21:10)
[2024-02-22] MEDS: LOW STRENGTH ASPIRIN 81 MG PO (22:10)
[2024-02-22 22:17] LABS: Glucose - Point of Care 89 mg/dl (70-99)
--- NOTE | 2024-02-22 23:00 | PTCARENOTE ---
levo off, BP 100s-110s systolically. pt tolerating sips of water and pills. no other change in assessment .
[2024-02-22] MEDS: PACERONE 200 MG PO (23:02)
[2024-02-22] MEDS: ZYPREXA PO (23:03)
[2024-02-23] VITALS (32 sets, daily range): BP systolic 85–142; BP diastolic 47–94; PULSE 113; O2SAT 96
[2024-02-23] MEDS: ROXICODONE PO
[2024-02-23 00:09] LABS: Glucose - Point of Care 102 mg/dl (70-99)
[2024-02-23] MEDS: NEURONTIN PO (00:15)
[2024-02-23 02:09] LABS: Glucose - Point of Care 80 mg/dl (70-99)
[2024-02-23 02:48] LABS: Hematocrit 34.6 % (37.0-47.0); Hemoglobin 11.3 g/dL (12.0-16.0); Mean Corp Hgb Conc. 32.7 g/dL (33.0-37.0); Mean Corpuscular Hgb 30.5 pg (27.0-31.0); Mean Corpuscular Volume 93.5 fL (81.0-99.0); Platelet Count 183 10^3/uL (130-400); White Blood Cell Count 21.9 10^3/uL (4.8-10.8)
--- NOTE | 2024-02-23 03:00 | PTCARENOTE ---
labs drawn and sent . resting, no change in assessment .
[2024-02-23 03:01] LABS: Blood Urea Nitrogen 22 mg/dl (7-17); Calcium 8.5 mg/dl (8.4-10.2); Carbon Dioxide 22 mmol/L (22-30); Chloride 109 mmol/L (98-107); Estimated Creatinine Clearance 65 ml/min; Glucose 78 mg/dl (70-99); Magnesium 2.2 mg/dl (1.6-2.3); Potassium 4.8 mmol/L (3.5-5.1); Sodium 140 mmol/L (135-145); eGFR > 60.00
[2024-02-23] MEDS: ROXICODONE 10 MG PO ×5 (04:05→20:04)
[2024-02-23] MEDS: ANCEF 5 IV ×2 (04:06→12:23)
[2024-02-23 04:12] LABS: Glucose - Point of Care 89 mg/dl (70-99)
--- NOTE | 2024-02-23 04:42 | W.PN.CT ---
Today's Communication / Plan
-
-pod #1
-drips: insulin, LR @ 75 cc/hr
-CT output: 2 meds 80/160, b/l pleur 50/115 in 12/24 hrs
-UO 1040/2030 in 12/24 hrs
-deline
-d/c Srinivasan
-continue insulin (HgA1c 11.8)- will ask DM to follow
-monitor Qt on Amio and Amitriptyline
-avoid NSAIDs (solitary kidney)
-current meds (ASA, Plavix, Crestor, Lopressor, Amio, Protonix, Feosol, Amitriptyline, Gabapentin)
-encourage IS, OOB
Assessment / Plan
-
- NSTEMI with multivessel coronary artery disease- s/p CABG x3 (In situ HANEY to LAD, HANK y'd off of the HANEY to OM branch, ao to RSVG to distal RCA) by Dr. Davies on 02/22/24, pod #1
- Intraop HU: LVEF preop and postop 60 to 65% with no regional wall motion abnormalities. She had mild left ventricular hypertrophy.
- Insulin-dependent diabetes mellitus, HbA1c of 12
- Hypertension
- GERD
- Hyperlipidemia
- History of right nephrectomy secondary to hydronephrosis
- Tobacco abuse approximately 1 pack/day for the last 45 years
- Diabetic polyneuropathy- on Gabapentin preop
- Opioid dependence/chronic pain syndrome post spinal fusions- Oxycodone 10 mg q4h
- Tobacco use (1/2ppd)
- Acute postop blood loss anemia - stable without transfusion
- Acute postop thrombocytopenia
- Acute postop atelectasis
- Suspected acute postop pericarditis/+rub
- Acute postop hypovolemia with subsequent hypervolemia
Discussed patient care with: Nursing and Care Team
Subjective
-
Date of Service: February 23, 2024
Objective Data
-
Lab Results
02/23/24 02:14
PT 17.5 Sec (11.4-14.6) H 02/22/24 15:27
INR 1.40 02/22/24 15:27
APTT 31.1 Sec (23.4-35.0) 02/22/24 15:27
Vital Signs
Vital Signs
Temp Pulse Resp BP Pulse Ox
97.1 F 108 10 107/74 100
02/23/24 02:00 02/23/24 02:00 02/23/24 02:00 02/23/24 02:00 02/23/24 02:00
CT Intake/Output/Weight
02/22/24 02/22/24 02/23/24
06:59 18:59 06:59
Intake Total 48 / 48 773.7 / 1613.5 839.8 / 1613.5
Output Total 1135 / 2125 990 / 2125
Balance 48 / 48 -361.3 / -511.5 -150.2 / -511.5
SaO2: 100
Physical Exam
-
General: Awake and AOx3
Cardiovascular: Regular rate & rhythm, No Murmurs and Rub
Respiratory: Decreased Breath Sounds
Sternum: Stable
Incision: Clean, Dry and Intact
Extremities: No Edema (2+DPs)
Abdomen: soft, nontender, nondistended, +decreased bowel sounds
Data Reviewed
-
Lab Results: Results Reviewed
Medications: Active Meds Reviewed
Chest X-Ray: Report Reviewed and Image Reviewed
ECG: Report Reviewed and Image Reviewed
[2024-02-23] MEDS: MORPHINE SULFATE 2 MG IV (04:56)
[2024-02-23] MEDS: ZOFRAN 4 MG IV (05:01)
--- NOTE | 2024-02-23 05:54 | PTCARENOTE ---
Addendum entered by Chad Concepcion RN 02/23/24 05:56:
pt vomited 50 mls of light colored bile, Zofran given with relief.
Original Note:
2mg morphine ordered and given for 10/10 pain after 10 of shaka unsuccessful. EKG completed, SLIC and A line d/cd per order
[2024-02-23 06:02] LABS: Glucose - Point of Care 96 mg/dl (70-99)
[2024-02-23] MEDS: TYLENOL 1000 MG PO ×3 (06:22→21:37)
[2024-02-23] MEDS: REGLAN 10 MG IV (07:01)
[2024-02-23 07:11] LABS: Glucose - Point of Care 109 mg/dl (70-99)
--- NOTE | 2024-02-23 07:44 | PTCARENOTE ---
assumed care of pt from previous shift RN, sinus tachycardia on tele, + peripheral pulses, trace edema. Lungs diminished, pox 96% on 2L NC. +BS, intermittent nausea, poor appetite. Surgical sites stable. Cordis and PIV flush easily. Plan of care
reviewed w the pt and questions encouraged
[2024-02-23 08:29] LABS: Glucose - Point of Care 102 mg/dl (70-99)
[2024-02-23] MEDS: NOVOLOG FLEXPEN SC ×2 (08:31→12:57)
[2024-02-23] MEDS: NEURONTIN 1600 MG PO ×3 (08:52→21:38)
[2024-02-23] MEDS: LIDOCAINE 4% PATCH 1 PATCH TOPICAL (08:52)
[2024-02-23] MEDS: MAGNESIUM OXIDE 500 MG PO ×2 (08:53→20:04)
[2024-02-23] MEDS: PLAVIX 75 MG PO (08:53)
[2024-02-23] MEDS: LOW STRENGTH ASPIRIN 81 MG PO (08:53)
[2024-02-23] MEDS: PROTONIX 40 MG PO (08:53)
[2024-02-23] MEDS: PACERONE 200 MG PO ×3 (08:53→21:37)
[2024-02-23] MEDS: VITAMIN C 500 MG PO (08:53)
[2024-02-23] MEDS: SENOKOT-S 1 TABLET PO ×2 (08:53→20:04)
[2024-02-23] MEDS: FEOSOL 325 MG PO (08:53)
[2024-02-23] MEDS: LOPRESSOR 12.5 MG PO ×2 (08:53→20:04)
[2024-02-23] MEDS: BACTROBAN 2% OINTMENT 1 APPLIC NASAL ×2 (08:54→20:04)
--- NOTE | 2024-02-23 09:06 | W.PN.INTV ---
Today's Communication / Plan
Recommendations
Doing well post extubation, weaning off O2 as tolerated
Off gtts, insulin IV ongoing, transition to SQ per protocol
We discussed her lung disease, referral to OP PULM
Otherwise, continue OOB/PT/IS
Further postop management per team
Assessment
-
Patient is a 53-year-old female with previous history of diabetes, hyperlipidemia, spinal fusions on chronic oxycodone presenting to outside hospital with chest discomfort and underwent cardiac catheterization, no records are available at present.
She signed out AMA from that facility and re-presents at ER. On arrival, she has notable increased troponin elevation 0.756 underwent cardiac catheterization on 02/19/2024 with demonstrated multivessel CAD. Underwent CT surgery evaluation and
scheduled for CABG x 3. Underwent procedure on 02/22/2024 and transferred postoperatively to CVICU.
Multivessel CAD status post CABG 02/22/24
NSTEMI Rule in, elevated troponin
Chest pain
COPD, moderate on PFT
Perioperative mechanical ventilation
Emphysema on CT
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
Current smoker
Diabetes
Diabetic neuropathy
Bipolar/depression
Chronic pain syndrome on opiates
Plan
S/p CAb x2 POD #1
Off pressors per protocol
ECHO reviewed with low function, LHC reviewed with 2-v CAD
PA catheter readings reviewed
Management of chest tubes per primary service
Pain control
RASS goal of 0 to -1
Intubated for procedure, extubated and doing well
ABG(s) reviewed/adequate
CXR with no obvious opacities/infiltrates, small apical ptx noted, stable
Maintain supplement oxygen as needed
Prior history of pulmonary disease: asthma noted and is a current smoker
Prior PFTs reviewed--moderate obstruction noted, could have ACOS
I reviewed this with patient, recommend outpatient pulmonary FU
Can add nebulizers if needed
Aspiration precautions
Encouraged incentive spirometry, OOB/ambulation/early mobility
Smoking cessation discussed as well
Advance diet as tolerated following extubation
GI prophylaxis if indicated for mechanical ventilation >48 hours
Monitor critical I/O's
Srinivasan/chest tube output
Hb/platelets postoperatively stable
Trend CBC for now
Can transfuse if indicated for Hb <7, plt <50 in surgical patients
DVT prophylaxis including SCDs
Insulin protocol initiated and ongoing
Transition to SQ/off as indicated per team
Diagnostic Data
Chest X-Ray: 02/22- Tiny left apical pneumothorax, less than 1%. Retrospectively stable. Lines tubes as described. Mild left lower lobe atelectasis versus scarring. Improved aeration of the left lower lung field.
02/19/24- No acute cardiopulmonary process.
02/16/24- No acute cardiopulmonary abnormality.
CT Scan: CHEST 02/19/24- Minor dependent pleural parenchymal thickening in the lung bases, consistent with atelectasis. No evidence of pneumonia. Mild COPD. No suspicious pulmonary mass. No evidence of pneumonia. No pleural or pericardial effusion.
No pneumothorax.
Echo: HU 02/22/24- Mild global hypokinesis of the left ventricle. LVEF is 45-50% with no regional wall motion abnormalities present. The cardiac valves are grossly normal in structure and function.
Small [id number] ASD seen. Grade III atheromatous disease of the aortic arch and descending thoracic aorta.
C 02/19/24- CONCLUSIONS
1. Multivessel coronary artery disease.
2. New normal LVEDP at 13 mmHg.
PFT's: 02/19/24-FEV1 2.06 L 75%, FVC 2.72 L 78%, ratio 76. Post FEV1 2.14 L 78%, FVC 3.45 L 99% with 27% change, ratio 62 (moderate obstruction)
Reports and relevant images were personally reviewed.
-----
Critical Care time 32 mins -- The patient is admitted for acute critical illness for the treatment of vital organ failure and/or prevention of further life-threatening conditions. Total care includes time spent in review of history, physical exam,
medications, hemodynamic/ventilator parameters, laboratory data, imaging and discussion with house staff, pharmacy, respiratory therapy, reclamation furnace operator, and nursing.
Subjective Dataa
Subjective Data
Date of Service:
Date of Service: February 23, 2024
Chief Complaint: Veterinary Pharmacologist Follow Up
Subjective:
Extubated and doing well, c/o pain at incision
Hard to breathe with pain
Objective Data
Data Reviewed
Vital Signs / I&O / Oxygen:
Vital Signs
Temp Pulse Resp BP Pulse Ox
98.2 F 112 16 109/74 96
02/23/24 07:00 02/23/24 07:00 02/23/24 07:00 02/23/24 07:00 02/23/24 07:00
Intake and Output
02/22/24 02/23/24 02/24/24
06:59 06:59 06:59
Intake Total 1854.3 / 1864.8 10.5 / 10.5
Output Total 2420 / 2420 0 / 0
Balance 48 48 -565.7 / -555.2 10.5 / 10.5
SaO2 96
Nasal Cannula flow liters per 2
minute
Physical Exam
General: Comfortable, Pain and Other (NAD)
HEENT: Normocephalic, Anicteric and Moist Mucous Membranes
Cardiovascular: S1-S2 and Regular Rhythm
Respiratory: Clear, Non-Labored Respirations and Chest Tube
GI: Soft, Non Distended and Non Tender
Neurology: Awake, Alert, Oriented and No Motor Deficits
Skin: Warm, Dry and Good Color
Labs/Micro/Reports
Lab Data
02/23/24 02:14
02/23/24 02:14
Laboratory Results
02/22/24 02/22/24
15:27 18:42
PT 17.5 H
INR 1.40
APTT 31.1
pH 7.34 L 7.37
pCO2 45 H 42 H
pO2 96 141 H
HCO3 24.3 24.3
O2 Delivery Level
[2024-02-23 09:40] LABS: Glucose - Point of Care 118 mg/dl (70-99)
--- NOTE | 2024-02-23 10:32 | PTCARENOTE ---
Pleural CTs removed without incident.
[2024-02-23 10:49] LABS: Glucose - Point of Care 104 mg/dl (70-99)
--- NOTE | 2024-02-23 12:28 | PTCARENOTE ---
Sinus tachycardia, VSS, pt assisted from bed to chair. pain well controlled. minimal output from mediastinal CTs.
[2024-02-23 12:57] LABS: Glucose - Point of Care 105 mg/dl (70-99)
[2024-02-23 15:00] LABS: Glucose - Point of Care 145 mg/dl (70-99)
[2024-02-23] MEDS: NSS IV (15:13)
[2024-02-23] MEDS: CRESTOR 40 MG PO (15:39)
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
[2024-02-23 17:28] LABS: Glucose - Point of Care 176 mg/dl (70-99)
[2024-02-23] MEDS: NOVOLOG FLEXPEN 2 UNITS SC (17:28)
[2024-02-23] MEDS: FLEXERIL 5 MG PO (18:10)
[2024-02-23 19:58] LABS: Glucose - Point of Care 161 mg/dl (70-99)
--- NOTE | 2024-02-23 20:22 | PTCARENOTE ---
Assumed care of pt from dayshift RN. Walking rounds completed. Pt laying in bed. AAOx3. SOLANO. Pt is sinus tach on the tele monitor. HR 110s. Temporary epicardial V-wire intact and insulated. BP 120/75. MAP 87. Palpable pulses throughout. No edema. Pt
on RA. POX 93%. Lung sounds diminished. Mediastinal CTx2 to -20 suction, no tidaling or crepitus at this time, and output appropriate. Abdomen round. +BS. Pt voiding. Sternal incision intact and BRETT. Right leg SVG site and right groin puncture
intact and TABLEAU ANALYST. Right IJ cordis C/D/I. PIV x2 C/D/I. Glycemic protocol followed. See worklist for full nursing assessment and interventions. Pt repositioned in bed. Call elliott within reach.
[2024-02-23] MEDS: ZYPREXA 20 MG PO (21:37)
[2024-02-23] MEDS: ELAVIL 75 MG PO (21:38)
[2024-02-23 22:11] LABS: Glucose - Point of Care 151 mg/dl (70-99)
[2024-02-23] MEDS: NOVOLIN R INSULIN INFUSION 100 IV (23:00)
[2024-02-23 23:58] LABS: Glucose - Point of Care 147 mg/dl (70-99)
[2024-02-24] VITALS (28 sets, daily range): BP systolic 79–118; BP diastolic 50–91; BMI 26.2
--- NOTE | 2024-02-24 00:09 | PTCARENOTE ---
No acute changes in assessment. Pt sinus tach on the tele monitor. HR 100-110s. BP stable. Mediastinal CTx2 assessment unchanged. Pt on RA. POX 93%. All surgical sites stable. Pt repositioned in bed. Glycemic protocol followed. Call elliott within
reach.
[2024-02-24 01:01] LABS: Glucose - Point of Care 143 mg/dl (70-99)
[2024-02-24 02:07] LABS: Glucose - Point of Care 107 mg/dl (70-99)
[2024-02-24 03:06] LABS: Glucose - Point of Care 99 mg/dl (70-99)
[2024-02-24 04:12] LABS: Glucose - Point of Care 120 mg/dl (70-99)
[2024-02-24] MEDS: ROXICODONE 10 MG PO ×6 (04:20→20:16)
--- NOTE | 2024-02-24 04:29 | PTCARENOTE ---
Pt reassessed. Pt remains sinus tach on the tele monitor. HR 100-110's. Temporary epicardial v-wire intact and insulated. BP stable. Pt on RA. POX 93%. CT assessment unchanged. All surgical sites stable. Pt assisted OOB to void and then repositioned
back into bed. Labs drawn and sent. Weight obtained. Glycemic protocol followed. Call elliott within reach.
[2024-02-24 04:51] LABS: Hematocrit 33.2 % (37.0-47.0); Hemoglobin 10.9 g/dL (12.0-16.0); Mean Corp Hgb Conc. 32.8 g/dL (33.0-37.0); Mean Corpuscular Hgb 31.1 pg (27.0-31.0); Mean Corpuscular Volume 94.6 fL (81.0-99.0); Mean Platelet Volume 12.1 fL (7.4-10.4); Platelet Count 190 10^3/uL (130-400); Red Blood Cell Count 3.51 10^6/uL (4.20-5.40); Red Cell Dist. Width 13.1 % (11.5-14.5); White Blood Cell Count 20.8 10^3/uL (4.8-10.8)
[2024-02-24 06:19] LABS: Blood Urea Nitrogen 19 mg/dl (7-17); Calcium 8.2 mg/dl (8.4-10.2); Carbon Dioxide 23 mmol/L (22-30); Chloride 101 mmol/L (98-107); Estimated Creatinine Clearance 65 ml/min; Glucose 107 mg/dl (70-99); Magnesium 2.1 mg/dl (1.6-2.3); Potassium 4.8 mmol/L (3.5-5.1); Sodium 136 mmol/L (135-145); eGFR > 60.00
[2024-02-24 06:19] LABS: Glucose - Point of Care 134 mg/dl (70-99)
[2024-02-24] MEDS: TYLENOL 1000 MG PO ×3 (06:26→21:25)
--- NOTE | 2024-02-24 06:34 | W.PN.CT ---
Today's Communication / Plan
-
-pod #2
-CT output: 2 meds 40/120, in 12/24 hrs, Pl CTs out
-UO 1500/2200 in 12/24 hrs
-trialed low dose BB, BP soft afterward but recovered
-continue insulin (HgA1c 11.8)- will ask DM to follow
-monitor Qt on Amio and Amitriptyline
-avoid NSAIDs (solitary kidney)
-current meds (ASA, Plavix, Crestor, Lopressor, Amio, Protonix, Feosol, Amitriptyline, Gabapentin)
-encourage IS, OOB
Assessment / Plan
-
- NSTEMI with multivessel coronary artery disease- s/p CABG x3 (In situ HANEY to LAD, HANK y'd off of the HANEY to OM branch, ao to RSVG to distal RCA) by Dr. Davies on 02/22/24, pod #2
- Intraop HU: LVEF preop and postop 60 to 65% with no regional wall motion abnormalities. She had mild left ventricular hypertrophy.
- Insulin-dependent diabetes mellitus, HbA1c of 12
- Hypertension
- GERD
- Hyperlipidemia
- History of right nephrectomy secondary to hydronephrosis
- Tobacco abuse approximately 1 pack/day for the last 45 years
- Diabetic polyneuropathy- on Gabapentin preop
- Opioid dependence/chronic pain syndrome post spinal fusions- Oxycodone 10 mg q4h
- Tobacco use (1/2ppd)
- Acute postop blood loss anemia - stable without transfusion
- Acute postop thrombocytopenia
- Acute postop atelectasis
- Suspected acute postop pericarditis/+rub
- Acute postop hypovolemia with subsequent hypervolemia
Subjective
-
Date of Service: February 24, 2024
Objective Data
-
Lab Results
02/24/24 04:11
02/24/24 04:11
PT 17.5 Sec (11.4-14.6) H 02/22/24 15:27
INR 1.40 02/22/24 15:27
APTT 31.1 Sec (23.4-35.0) 02/22/24 15:27
Vital Signs
Vital Signs
Temp Pulse Resp BP Pulse Ox
99.5 F 122 20 108/69 99
02/24/24 06:03 02/24/24 06:03 02/24/24 06:03 02/24/24 06:03 02/24/24 06:03
CT Intake/Output/Weight
02/23/24 02/23/24 02/24/24
06:59 18:59 06:59
Intake Total 1080.6 / 1864.8 300.3 / 445.0 144.7 / 445.0
Output Total 1285 / 2420 780 / 2320 1540 / 2320
Balance -204.4 / -555.2 -479.7 / -1875.0 -1395.3 / -1875.0
SaO2: 99
Physical Exam
-
General: Awake, Oriented and AOx3
Cardiovascular: No Murmurs, No Rub and Other (sinus tachycardia)
Respiratory: Clear and Decreased Breath Sounds
Sternum: Stable
Incision: Clean, Dry and Intact
Extremities: Edema +1
Data Reviewed
-
Lab Results: Results Reviewed
Medications: Active Meds Reviewed
Chest X-Ray: Report Reviewed
ECG: Report Reviewed
--- NOTE | 2024-02-24 07:32 | W.PN.INTV ---
Today's Communication / Plan
Recommendations
Doing well today, stable on RA
Off pressors, insulin transitioned to SQ
Chest tubes discontinued
OOB to chair, PT/ambulate
Transfer to tele per team, we will sign off upon transfer
Assessment
-
Patient is a 53-year-old female with previous history of diabetes, hyperlipidemia, spinal fusions on chronic oxycodone presenting to outside hospital with chest discomfort and underwent cardiac catheterization, no records are available at present.
She signed out AMA from that facility and re-presents at ER. On arrival, she has notable increased troponin elevation 0.756 underwent cardiac catheterization on 02/19/2024 with demonstrated multivessel CAD. Underwent CT surgery evaluation and
scheduled for CABG x 3. Underwent procedure on 02/22/2024 and transferred postoperatively to CVICU.
Multivessel CAD status post CABG 02/22/24
NSTEMI Rule in, elevated troponin
Chest pain
COPD, moderate on PFT
Perioperative mechanical ventilation
Emphysema on CT
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
Current smoker
Diabetes
Diabetic neuropathy
Bipolar/depression
Chronic pain syndrome on opiates
Plan
S/p CAb x2 POD #2
Off pressors per protocol
ECHO reviewed with low function, LHC reviewed with 2-v CAD
PA catheter readings reviewed
Discontinued chest tubes
Pain control
RASS goal of 0 to -1
Intubated for procedure, extubated and doing well
ABG(s) reviewed/adequate
CXR with no obvious opacities/infiltrates, small apical ptx noted, stable
Maintain supplement oxygen as needed
Prior history of pulmonary disease: asthma noted and is a current smoker
Prior PFTs reviewed--moderate obstruction noted, could have ACOS
I reviewed this with patient, recommend outpatient pulmonary FU
Can add nebulizers if needed
Aspiration precautions
Encouraged incentive spirometry, OOB/ambulation/early mobility
Smoking cessation discussed as well
Advance diet as tolerated following extubation
GI prophylaxis if indicated for mechanical ventilation >48 hours
Monitor critical I/O's
Srinivasan/chest tube output
Hb/platelets postoperatively stable
Trend CBC for now
Can transfuse if indicated for Hb <7, plt <50 in surgical patients
DVT prophylaxis including SCDs
Insulin protocol discontinued
Transitioned to SQ/further adjustments as indicated per team
Diagnostic Data
Chest X-Ray: 02/22- Tiny left apical pneumothorax, less than 1%. Retrospectively stable. Lines tubes as described. Mild left lower lobe atelectasis versus scarring. Improved aeration of the left lower lung field.
02/19/24- No acute cardiopulmonary process.
02/16/24- No acute cardiopulmonary abnormality.
CT Scan: CHEST 02/19/24- Minor dependent pleural parenchymal thickening in the lung bases, consistent with atelectasis. No evidence of pneumonia. Mild COPD. No suspicious pulmonary mass. No evidence of pneumonia. No pleural or pericardial effusion.
No pneumothorax.
Echo: HU 02/22/24- Mild global hypokinesis of the left ventricle. LVEF is 45-50% with no regional wall motion abnormalities present. The cardiac valves are grossly normal in structure and function.
Small [id number] ASD seen. Grade III atheromatous disease of the aortic arch and descending thoracic aorta.
C 02/19/24- CONCLUSIONS
1. Multivessel coronary artery disease.
2. New normal LVEDP at 13 mmHg.
PFT's: 02/19/24-FEV1 2.06 L 75%, FVC 2.72 L 78%, ratio 76. Post FEV1 2.14 L 78%, FVC 3.45 L 99% with 27% change, ratio 62 (moderate obstruction)
Reports and relevant images were personally reviewed.
-----
Critical Care time 31 mins -- The patient is admitted for acute critical illness for the treatment of vital organ failure and/or prevention of further life-threatening conditions. Total care includes time spent in review of history, physical exam,
medications, hemodynamic/ventilator parameters, laboratory data, imaging and discussion with house staff, pharmacy, respiratory therapy, us marketing director, and nursing.
Subjective Dataa
Subjective Data
Date of Service:
Date of Service: February 24, 2024
Chief Complaint: [employer] Marketing Follow Up
Subjective:
Doing well today, stable on RA
Off drips, chest tubes are discontinued
No new complaints
Objective Data
Data Reviewed
Vital Signs / I&O / Oxygen:
Vital Signs
Temp Pulse Resp BP Pulse Ox
99.5 F 122 20 108/69 99
02/24/24 06:03 02/24/24 06:03 02/24/24 06:03 02/24/24 06:03 02/24/24 06:37
Intake and Output
02/23/24 02/24/24 02/25/24
06:59 06:59 06:59
Intake Total 1854.3 / 1864.8 445.0 / 445.0
Output Total 2420 / 2420 2320 / 2320
Balance -565.7 / -555.2 -1875.0 / -1875.0
SaO2 99
Nasal Cannula flow liters per 2
minute
Physical Exam
General: Comfortable, Pain and Other (NAD)
HEENT: Normocephalic, Anicteric and Moist Mucous Membranes
Cardiovascular: S1-S2 and Regular Rhythm
Respiratory: Clear and Non-Labored Respirations
GI: Soft, Non Distended and Non Tender
Neurology: Awake, Alert, Oriented and No Motor Deficits
Skin: Warm, Dry and Good Color
Labs/Micro/Reports
Lab Data
02/24/24 04:11
02/24/24 04:11
[2024-02-24] MEDS: PACERONE 200 MG PO ×3 (07:41→21:25)
[2024-02-24] MEDS: VITAMIN C 500 MG PO (07:42)
[2024-02-24] MEDS: NEURONTIN 1600 MG PO ×3 (07:42→21:24)
[2024-02-24] MEDS: LOW STRENGTH ASPIRIN 81 MG PO (07:42)
[2024-02-24] MEDS: PLAVIX 75 MG PO (07:42)
[2024-02-24] MEDS: SENOKOT-S 1 TABLET PO ×2 (07:42→20:16)
[2024-02-24] MEDS: LIDOCAINE 4% PATCH 1 PATCH TOPICAL (07:42)
[2024-02-24] MEDS: MAGNESIUM OXIDE 500 MG PO ×2 (07:42→20:16)
[2024-02-24] MEDS: FEOSOL 325 MG PO (07:42)
[2024-02-24] MEDS: PROTONIX 40 MG PO (07:42)
--- NOTE | 2024-02-24 07:42 | W.PN.ANS.POP ---
Anesthesia Post Operative
- Anesthesia Post Op Note
Vital Signs Stable-See Nursing Note: Yes
Airway Patent: Yes
Adequate Pain Control: Yes
Change in Mental Status: No
Current Postoperative Nausea & Vomiting: No
Anesthesia Complications: No
General Anesthetic Recall: No
Unplanned Admission: No
Post Op Hydration Adequate: Yes
[2024-02-24] MEDS: NOVOLOG FLEXPEN 4 UNITS SC ×2 (07:45→12:10)
[2024-02-24] MEDS: BACTROBAN 2% OINTMENT 1 APPLIC NASAL ×2 (07:45→20:17)
[2024-02-24 07:46] LABS: Glucose - Point of Care 107 mg/dl (70-99)
[2024-02-24] MEDS: FLEXBUMIN 50 IV (08:25)
--- NOTE | 2024-02-24 08:31 | W.PN.UPDATE ---
Update Note
Progress Note Update
No pacing required since surgery. 1 bipolar ventricular lead removed without difficulty. Monitor vital signs every 15 minutes x 4.
--- NOTE | 2024-02-24 08:31 | PTCARENOTE ---
assumed care of pt from previous shift RN, sinus tachycardia on tele, soft BPs, pt asymptomatic. 25% flexbumin administered as ordered. + peripheral pulses, no edema. Lungs diminished bilaterally, pulse ox 93% on RA, coughing and deep breathing
encouraged. +bs, abd distended/soft/non tender, tolerating PO intake, denies nausea/vomiting. Voids spontaneously, radha urine. Right IJ cordis w KVO and insulin infusing, PIV x2 flush easily. Surgical sites w glue intact. Pacing wire removed by CT
DERRICK. Will removed mediastinal CTs later. Plan of care reviewed and questions encouraged.
--- NOTE | 2024-02-24 09:40 | PTCARENOTE ---
CTs removed without incident.
[2024-02-24 09:55] LABS: Glucose - Point of Care 118 mg/dl (70-99)
[2024-02-24] MEDS: LOPRESSOR 12.5 MG PO ×2 (10:13→20:16)
[2024-02-24] MEDS: METAMUCIL, KONSYL 1 PACKET PO (10:14)
[2024-02-24 12:09] LABS: Glucose - Point of Care 107 mg/dl (70-99)
--- NOTE | 2024-02-24 15:42 | PTCARENOTE ---
insulin gtt discontinued.
[2024-02-24 16:20] LABS: Glucose - Point of Care 153 mg/dl (70-99)
[2024-02-24] MEDS: NOVOLOG FLEXPEN-MODERATE RESISTANCE 1 UNITS SC (16:20)
[2024-02-24] MEDS: NSS IV (16:21)
[2024-02-24] MEDS: CRESTOR 40 MG PO (16:21)
--- NOTE | 2024-02-24 16:26 | PTCARENOTE ---
pt w low grade temp and blood clots in urine. pt denies pain w urination. CT DERRICK made aware. UA ordered.
[2024-02-24 16:49] LABS: Urine Albumin Trace (Neg - Trace); Urine Bilirubin Negative (Negative); Urine Character Clear (Clear); Urine Color Yellow; Urine Glucose 3+ (Negative); Urine Ketone Trace (Negative); Urine Leukocyte Negative (Negative); Urine Nitrite Negative (Negative); Urine Occult Blood 4+ (Negative); Urine Urobilinogen Negative (Neg - 1+)
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
[2024-02-24 17:45] LABS: Urine Squamous Cell >30 /LPF (Few)
[2024-02-24 17:46] LABS: Urine Bacteria Few (Negative); Urine Red Blood Cell 30-40 /HPF (0-2); Urine Yeast Few (Negative)
--- NOTE | 2024-02-24 20:27 | PTCARENOTE ---
Assumed care of the patient at 1900. AOx3, c/o 10/10 pain at baseline. Sinus tach on the monitor, rates 100's, mostly 110's, no edema, + pulses, heart sounds regular. Lungs diminished with coarse crackles at the bases; patient satting 87% on RA
while lying in bed. 2LNC applied, IS encouraged, patient states she has been using while awake. CVPA made aware of O2 sat/NC needs. No complaints of nausea, appetite good, abdomen round, SNT, hyperactive BS. Voiding spontaneously, reinforced to let
RN know about clots as they arise. Midsternal chest incision CDI BRETT with Dermabond, CTx4 wound dressing in place CDI, R groin puncture site CDI BRETT with Dermabond, and RSVG CDI DRY GOODS INSPECTOR with Dermabond. PIVx2 in R hand and L forearm intact. RIJ Cordis in
place infusing KVO. Patient updated on POC, in agreement, call elliott within reach.
[2024-02-24] MEDS: ZYPREXA 20 MG PO (21:25)
[2024-02-24] MEDS: ELAVIL 75 MG PO (21:25)
[2024-02-24] MEDS: LANTUS 0.3 UNITS SC (21:26)
[2024-02-24 21:32] LABS: Glucose - Point of Care 186 mg/dl (70-99)
[2024-02-25] VITALS (20 sets, daily range): BP systolic 81–136; BP diastolic 55–117; PULSE 101; O2SAT 92–93; BMI 26.2
[2024-02-25] MEDS: ROXICODONE 10 MG PO ×5 (00:17→20:06)
--- NOTE | 2024-02-25 00:30 | PTCARENOTE ---
Patient sleeping between care, set an alarm for 0000. Sternal precautions reinforced, assessment unchanged.
[2024-02-25] MEDS: NSS 500 IV (01:30)
[2024-02-25] MEDS: ROXICODONE PO (04:12)
--- NOTE | 2024-02-25 04:13 | PTCARENOTE ---
Patient hypotensive 81/55, CVPA made aware - Oxycodone scheduled dosage held, patient maintained on 2LNC, sound asleep.
[2024-02-25 05:20] LABS: Hematocrit 29.5 % (37.0-47.0); Hemoglobin 9.5 g/dL (12.0-16.0); Mean Corp Hgb Conc. 32.2 g/dL (33.0-37.0); Mean Corpuscular Hgb 30.2 pg (27.0-31.0); Mean Corpuscular Volume 93.7 fL (81.0-99.0); Mean Platelet Volume 11.5 fL (7.4-10.4); Platelet Count 180 10^3/uL (130-400); Red Blood Cell Count 3.15 10^6/uL (4.20-5.40); Red Cell Dist. Width 13.2 % (11.5-14.5); White Blood Cell Count 17.6 10^3/uL (4.8-10.8)
--- NOTE | 2024-02-25 05:21 | W.PN.CT ---
Documented by User: ELISA Powell 02/25/24 05:27
Today's Communication / Plan
-
-pod #3
-med CT out yesterday, Pl CT the day before
-UOP at least 1300 cc + undocumented voids
-trialed low dose BB, BP soft afterward but recovered. s/p 25% albumin yesterday.
-now on short/long acting insulin, will ask DM to follow
-avoid NSAIDs (solitary kidney), continue scheduled and PRN pain meds
-current meds (ASA, Plavix, Crestor, Lopressor 12.5 mg, Amio, Protonix, Feosol, Amitriptyline, Gabapentin, Zyprexa
-encourage IS, OOB
Assessment / Plan
-
- NSTEMI with multivessel coronary artery disease- s/p CABG x3 (In situ HANEY to LAD, HANK y'd off of the HANEY to OM branch, ao to RSVG to distal RCA) by Dr. Davies on 02/22/24, pod #3
- Intraop HU: LVEF preop and postop 60 to 65% with no regional wall motion abnormalities. She had mild left ventricular hypertrophy.
- Insulin-dependent diabetes mellitus, HbA1c of 12
- Hypertension
- GERD
- Hyperlipidemia
- History of right nephrectomy secondary to hydronephrosis
- Tobacco abuse approximately 1 pack/day for the last 45 years
- Diabetic polyneuropathy- on Gabapentin preop
- Opioid dependence/chronic pain syndrome post spinal fusions- Oxycodone 10 mg q4h
- Tobacco use (1/2ppd)
- Acute postop blood loss anemia - stable without transfusion
- Acute postop thrombocytopenia
- Acute postop atelectasis
- Suspected acute postop pericarditis/+rub
- Acute postop hypovolemia with subsequent hypervolemia
Subjective
Procedure
s/p CABG x3 (In situ HANEY to LAD, HANK y'd off of the HANEY to OM branch, ao to RSVG to distal RCA) by Dr. Davies on 02/22/24
-
Date of Service: February 25, 2024
Objective Data
-
Lab Results
02/25/24 05:08
PT 17.5 Sec (11.4-14.6) H 02/22/24 15:27
INR 1.40 02/22/24 15:27
APTT 31.1 Sec (23.4-35.0) 02/22/24 15:27
Vital Signs
Vital Signs
Temp Pulse Resp BP Pulse Ox
98.5 F 98 16 81/55 94
02/25/24 04:04 02/25/24 04:04 02/25/24 04:04 02/25/24 04:04 02/25/24 04:04
CT Intake/Output/Weight
02/24/24 02/24/24 02/25/24
06:59 18:59 06:59
Intake Total 144.7 / 445.0 158.3 / 448.3 290 / 448.3
Output Total 1540 / 2320 1320 / 1320
Balance -1395.3 / -1875.0 -1161.7 / -871.7 290 / -871.7
SaO2: 94
Physical Exam
-
General: Awake and Oriented
Cardiovascular: No Murmurs and Other (Regular rhythm, fast rate)
Respiratory: Clear, Equal and Decreased Breath Sounds
Sternum: Stable
Incision: Clean and Dry
Extremities: Edema +1
Data Reviewed
-
Lab Results: Results Reviewed
Medications: Active Meds Reviewed
Chest X-Ray: Report Reviewed and Image Reviewed
CT Scan: Report Reviewed

Documented by User: Yaneli ELISA Serrano 02/25/24 08:47
Assessment / Plan
-
- NSTEMI with multivessel coronary artery disease- s/p CABG x3 (In situ HANEY to LAD, HANK y'd off of the HANEY to OM branch, ao to RSVG to distal RCA) by Dr. Davies on 02/22/24, pod #3
- Intraop HU: LVEF preop and postop 60 to 65% with no regional wall motion abnormalities. She had mild left ventricular hypertrophy.
- Insulin-dependent diabetes mellitus, HbA1c of 12
- Hypertension
- GERD
- Hyperlipidemia
- History of right nephrectomy secondary to hydronephrosis
- Tobacco abuse approximately 1 pack/day for the last 45 years
- Diabetic polyneuropathy- on Gabapentin preop
- Opioid dependence/chronic pain syndrome post spinal fusions- Oxycodone 10 mg q4h
- Tobacco use (1/2ppd)
- Acute postop blood loss anemia - stable without transfusion
- Acute postop thrombocytopenia
- Acute postop atelectasis
- Suspected acute postop pericarditis/+rub
- Acute postop hypovolemia with subsequent hypervolemia
- Acute pulmonary insufficiency (following surgery)
[2024-02-25 05:55] LABS: Blood Urea Nitrogen 23 mg/dl (7-17); Chloride 104 mmol/L (98-107); Estimated Creatinine Clearance 65 ml/min; Glucose 131 mg/dl (70-99); Magnesium 2.2 mg/dl (1.6-2.3); Potassium 4.4 mmol/L (3.5-5.1); Sodium 136 mmol/L (135-145); eGFR > 60.00
[2024-02-25] MEDS: TYLENOL 1000 MG PO ×3 (06:20→22:59)
[2024-02-25 06:34] LABS: Carbon Dioxide 25 mmol/L (22-30)
[2024-02-25] MEDS: NOVOLOG FLEXPEN-MODERATE RESISTANCE 1 UNITS SC (08:12)
[2024-02-25 08:15] LABS: Glucose - Point of Care 160 mg/dl (70-99)
[2024-02-25] MEDS: ProAmatine 5 MG PO (08:22)
[2024-02-25] MEDS: PROTONIX 40 MG PO (08:22)
[2024-02-25] MEDS: NEURONTIN 1600 MG PO ×3 (08:22→22:59)
[2024-02-25] MEDS: METAMUCIL, KONSYL 1 PACKET PO (08:22)
[2024-02-25] MEDS: LOW STRENGTH ASPIRIN 81 MG PO (08:22)
[2024-02-25] MEDS: PLAVIX 75 MG PO (08:22)
[2024-02-25] MEDS: LIDOCAINE 4% PATCH 1 PATCH TOPICAL (08:22)
[2024-02-25] MEDS: PACERONE 200 MG PO ×2 (08:23→16:05)
[2024-02-25] MEDS: FEOSOL 325 MG PO (08:23)
[2024-02-25] MEDS: BACTROBAN 2% OINTMENT 1 APPLIC NASAL ×2 (08:23→20:06)
[2024-02-25] MEDS: SENOKOT-S 1 TABLET PO ×2 (08:23→20:08)
[2024-02-25] MEDS: MAGNESIUM OXIDE 500 MG PO ×2 (08:23→20:06)
--- NOTE | 2024-02-25 08:28 | PN.CDI ---
CDI
- -
CDI:
Physician Documentation Request
Admit Date: 02/16/24 18:[address] surgery,
Clinical Indicators:
Patient admitted with N STEMI; s/p CABG x 3 02/21.
02/23 (20:27) RN note, '...patient satting 87% on RA while lying in bed. 2LNC applied...'
Sa requirements:
02/23/24
20:00 02/24/24
08:00 02/24/24
20:11
SaO2 93 93 87
Oxygen Mode of Delivery Room air Room air
Nasal Cannula flow liters per minute
02/24/24
20:12 02/25/24
00:14 02/25/24
00:15
SaO2 88 87 93
Oxygen Mode of Delivery Room air
Nasal Cannula flow liters per minute 2
Please clarify which of the following accurately represents the patient's respiratory status following surgery:
Acute pulmonary insufficiency (following surgery)
Hypoxia only
Other
Additional information for Pulmonary Insufficiency:
Consider when patients require intermediate project manager oxygen therapy postoperatively
Weaned off oxygen initially then requiring supplemental oxygen
No other definitive diagnosis to support the need for oxygen (COPD exac, CHF etc.)
Unable to wean from vent
When criteria for respiratory failure not present
May extend stay or require additional resources; may need home O2
Additional information for Respiratory Failure:
Recognized criteria for Respiratory Failure (Source: [facility] Jan 2013)
ABGs: (1 or more) Symptoms Indicate:
1. p)2 <60 or RA SPO2 <91% on RA 1. Tachypnea, SOB, dyspnea 1. Type as:
2. pCO2 50 and pH <7.35 2. Use of accessory muscles a. Hypoxic
3. pO2 decrease of pCO2 increase by 3. Pallor or cyanosis b. Hypercapnic
10 mmHg from baseline if known 4. Anxiety or restlessness 2. If due to procedure or due to another cause
5. Unable to speak in full sentences
Supplemental O2 of > 40% Intubation is not required
Use of terms such as suspected, likely, concern for, or probable (associated with a specific diagnosis that is being evaluated, monitored, or treated as if it exists) are acceptable and can be coded in the inpatient setting, when documented at the
time of discharge.
Thank you,
Sue Vences RN BSN
CDI Specialist
available via tiger text
Please use your independent medical judgment in providing your response.
--- NOTE | 2024-02-25 08:40 | PN.DE.MGMTRT ---
Insulin Management
- -
02/25/2024: Diabetes management Consult
53 year old male admitted 02/15 with chest pain--> NSTEMI with MVCAD, Now POD #3 s/p CABG x3.
PMH: HTN, HLD, GERD, IDDM, History of right nephrectomy 2/2 hydronephrosis, Tobacco abuse ~1 pack/day x 45 years, Diabetic polyneuropathy, Opioid dependence/chronic pain syndrome post spinal fusions. Chart review noted that pt had recent admit @
[facility] for [place], signed out AMA
Upon interview, pt states that she has poor compliance with diet, states she eats rice with most meals. Says she has been a diabetic for 'long time', states it her most recent A1C was 12.5% few months ago. states she follows with her PCP for her
diabetes care. A1C on admission was A1C 11.8%, Cr 09, eGFR> 60.
Was taking Jardiance 25 mg Daily, Lantus 30 units @ HS, NovoLog 30 units AC and Trulicity 3mg weekly on Tuesdays.
Pt awake, alert, resting in bed, offers no complaints, able to discuss diabetes mgt at home.
Transitioned off glycemic protocol on 02/23 to SQ Lantus and corrective insulin only
Glucose has remained stable since transitioning off drip, premeal range 107 to 153, states she is eating all meals presented to her.
Received Lantus 30 units @ HS, FBG 131(V) this AM. Will cont same dose tonight.
Start Farxiga 10mg daily. Will hold off on starting AC NovoLog for now. Will closely monitor and assess when appropriate to resume AC NovoLog.
Pt reports she has a working monitor at home. Discussed and offered OP DSME Classes, pt reports she lives in [place] and would be too far for her to come to for classes. Notified pt of [facility] DSME classes that are also offered in
[place], she noted in agreement but expressed no interest.
Diabetes History
- -
Type of Diabetes: 2 requiring insulin
Pre-Admission Diabetes Regimen
02/25/24
05:08
Creatinine 0.9
Lab Results
Hemoglobin A1c 11.8 % (4.0-5.6) H 02/17/24 08:13
Insulin Pump Settings
IP Diabetes Regimen
02/24/24 02/24/24 02/24/24
09:53 12:07 16:19
Glucose
POC Glucose 118 H 107 H 153 H
02/24/24 02/25/24 02/25/24
21:23 05:08 08:11
Glucose 131 H
POC Glucose 186 H 160 H
Patient Education
--- NOTE | 2024-02-25 08:59 | PTCARENOTE ---
Patient received from shift superintendent resting oob in chair, AAO x 3. ST via cm, SaO2 @ 95% on 2lnc. BP noted to be 89 sys, DERRICK notified. AMY Turcios w/kvo infusing. All procedural sites stable. Patient updated to plan of care for the day, in agreement.
See work list for full assessment and interventions performed.
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
[2024-02-25] MEDS: OSCAL CAL 500 500 MG PO (09:23)
[2024-02-25] MEDS: VITAMIN C 500 MG PO (09:24)
[2024-02-25] MEDS: FARXIGA 10 MG PO (09:24)
[2024-02-25] MEDS: LOPRESSOR 12.5 MG PO (09:24)
--- NOTE | 2024-02-25 11:58 | CM ---
Reviewed chart. Met with Mrs. Alvarez to review discharge plans. She states she is feeling well and maybe able to go home soon. We reviewed VNA Services and she is agreeable to VNA. Telephone call to [facility] to make the referral. Referral Sent.
Telephone call to [facility] Patient Supervisor [employer], ([phone]) to restart her services at home. Left message. Prior to admission she resides with her Aunt in a two story home with two steps to enter. Prior to admission she ambulates with a
walker or single point cane. Prior to admission she was getting CONSTRUCTION CARPENTERS HELPER services thru the waiver program. Medical work-up in progress. The discharge plan is to return home with her family, W[facility] Services and [facility] when medically
stable.
[2024-02-25 12:21] LABS: Glucose - Point of Care 138 mg/dl (70-99)
[2024-02-25] MEDS: NOVOLOG FLEXPEN-MODERATE RESISTANCE SC ×2 (12:22→16:49)
--- NOTE | 2024-02-25 12:28 | PTCARENOTE ---
VS obtained, assessment stable. Patient resting comfortably. RIJ Cordis d/c'd as ordered, patient tolerated well. Assisted oob to chair for lunch.
[2024-02-25] MEDS: ProAmatine 2.5 MG PO (13:17)
--- NOTE | 2024-02-25 16:15 | PTCARENOTE ---
VS obtained, assessment unchanged. Patient ambulating ad julia, steady. States pain controlled.
[2024-02-25 16:48] LABS: Glucose - Point of Care 131 mg/dl (70-99)
[2024-02-25] MEDS: CRESTOR 40 MG PO (17:19)
[2024-02-25] MEDS: ProAmatine PO (17:39)
[2024-02-25] MEDS: CORDARONE 103 MG IV ×2 (19:58→22:36)
--- NOTE | 2024-02-25 20:00 | PTCARENOTE ---
Assumed care of patient at 1900. Patient AOx4, follows commands appropriately, moves all extremities. Lung sounds are diminished at the bases. Currently afib on the monitor. +BS voiding in toilet no post op BM. Sternal incision approximated JEAN CARLOS, CT
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 R hand PIV and L FA PIV available for intermittent infusion.
[2024-02-25] MEDS: CALCIUM GLUCONATE 100 IV (21:20)
--- NOTE | 2024-02-25 21:37 | PTCARENOTE ---
Patient entered afib rhythm shortly after changed of shift 1908. Patient asymptomatic. HR just above 100 while resting but >150 with ambulation patient reported no symptoms other than slight SOB. Orders received for amio bolus. Following
administration at 1957 patient converted to SR/ST at approx 2034 HR 90s-100s. Further orders received for calcium gluconate which was administered. PO amio dose increased to 400mg tonight.
[2024-02-25] MEDS: LANTUS 0.3 UNITS SC (22:59)
[2024-02-25 23:00] LABS: Glucose - Point of Care 198 mg/dl (70-99)
[2024-02-25] MEDS: TOPROL XL 12.5 MG PO (23:00)
[2024-02-25] MEDS: ZYPREXA 20 MG PO (23:00)
[2024-02-25] MEDS: PACERONE 400 MG PO (23:02)
[2024-02-25] MEDS: ELAVIL 75 MG PO (23:02)
[2024-02-25] MEDS: DULCOLAX 10 MG PO (23:04)
[2024-02-26] VITALS (12 sets, daily range): BP systolic 90–124; BP diastolic 55–81; PULSE 92; O2SAT 95; BMI 26.4
[2024-02-26] MEDS: ROXICODONE 10 MG PO ×6 (00:02→23:22)
--- NOTE | 2024-02-26 02:14 | PTCARENOTE ---
Patient reassessed. In/out of afib with rvr despite two amio boluses. Awaiting amio gtt from pharmacy. All other VSS. Call elliott within reach.
[2024-02-26] MEDS: CORDARONE 518 MG IV (03:21)
--- NOTE | 2024-02-26 04:07 | PTCARENOTE ---
Patient reassessed. Patient mostly in NSR since previous assessment small runs of afib. Amio gtt initiated at approx 0300. No c/o pain at this time. Call elliott within reach.
[2024-02-26 04:13] LABS: Blood Urea Nitrogen 22 mg/dl (7-17); Calcium 8.8 mg/dl (8.4-10.2); Carbon Dioxide 25 mmol/L (22-30); Chloride 101 mmol/L (98-107); Estimated Creatinine Clearance 53 ml/min; Glucose 174 mg/dl (70-99); Magnesium 2.4 mg/dl (1.6-2.3); Potassium 4.2 mmol/L (3.5-5.1); Sodium 140 mmol/L (135-145); eGFR > 60.00
[2024-02-26 04:39] LABS: Hemoglobin 10.7 g/dL (12.0-16.0); Mean Corp Hgb Conc. 33.4 g/dL (33.0-37.0); Mean Corpuscular Hgb 31.9 pg (27.0-31.0); Mean Corpuscular Volume 95.5 fL (81.0-99.0); Mean Platelet Volume 11.7 fL (7.4-10.4); Platelet Count 224 10^3/uL (130-400); Red Blood Cell Count 3.35 10^6/uL (4.20-5.40); Red Cell Dist. Width 13.2 % (11.5-14.5); White Blood Cell Count 18.2 10^3/uL (4.8-10.8)
[2024-02-26] MEDS: ROXICODONE PO (05:19)
[2024-02-26] MEDS: TYLENOL 1000 MG PO ×2 (06:03→21:01)
--- NOTE | 2024-02-26 06:35 | PTCARENOTE ---
Upon assessment of patient this AM noticed that L arm site was leaking that had amio gtt running through. No signs of phlebitis, redness, or pain reported. PIV site discontinued. Warm compress applied.
--- NOTE | 2024-02-26 06:44 | W.PN.CT ---
Today's Communication / Plan
-
Plan:
-No major issues overnight. Hemodynamically and neurologically intact
-BP has been soft postop, improving. Midodrine transitioned to PRN. Tolerated 12.5 Toprol Xl last night
-Noted to be in and out of afib with RVR (150's) last night. Responded to Amiodarone bolus x2 and drip x 3 hrs (site mildly infiltrated)
-Cont. current meds (ASA, Plavix, Crestor, Toprol XL, Amio, Protonix, Feosol, Amitriptyline, Gabapentin, Zyprexa)
-Avoid NSAIDs (solitary kidney)
-F/U 2-view cxr
-Encourage use of IS
-OOB into chair
-Ambulate
-Home today if no further rhythm issues
Assessment / Plan
-
- NSTEMI with multivessel coronary artery disease- s/p CABG x3 (In situ HANEY to LAD, HANK y'd off of the HANEY to OM branch, ao to RSVG to distal RCA) by Dr. Davies on 02/22/24, pod #4
- Intraop HU: LVEF preop and postop 60 to 65% with no regional wall motion abnormalities. She had mild left ventricular hypertrophy.
- Insulin-dependent diabetes mellitus, HbA1c of 12
- Hypertension
- GERD
- Hyperlipidemia
- History of right nephrectomy secondary to hydronephrosis
- Tobacco abuse approximately 1 pack/day for the last 45 years
- Diabetic polyneuropathy- on Gabapentin preop
- Opioid dependence/chronic pain syndrome post spinal fusions- Oxycodone 10 mg q4h
- Tobacco use (1/2ppd)
- Acute postop blood loss anemia - stable without transfusion
- Acute postop thrombocytopenia
- Acute postop atelectasis
- Suspected acute postop pericarditis/+rub
- Acute postop hypovolemia with subsequent hypervolemia
- Acute pulmonary insufficiency (following surgery)
Discussed patient care with: Cardiology, Nursing, Respiratory Therapy, Pharmacy and Care Team
Subjective
Procedure
s/p CABG x3 (In situ HANEY to LAD, HANK y'd off of the HANEY to OM branch, ao to RSVG to distal RCA) by Dr. Davies on 02/22/24
-
Date of Service: February 26, 2024
Pt c/o mild incisional pain, otherwise feels well
Objective Data
-
Lab Results
02/26/24 03:42
02/26/24 03:42
PT 17.5 Sec (11.4-14.6) H 02/22/24 15:27
INR 1.40 02/22/24 15:27
APTT 31.1 Sec (23.4-35.0) 02/22/24 15:27
Vital Signs
Vital Signs
Temp Pulse Resp BP Pulse Ox
98.8 F 84 20 96/60 96
02/26/24 04:02 02/26/24 06:30 02/26/24 04:02 02/26/24 06:03 02/26/24 04:02
CT Intake/Output/Weight
02/25/24 02/25/24 02/26/24
06:59 18:59 06:59
Intake Total 290 / 448.3 650 / 1370 720 / 1370
Balance 290 / -871.7 650 / 1370 720 / 1370
SaO2: 96 (RA)
Physical Exam
-
General: Awake, Oriented and AOx3
Cardiovascular: Regular rate & rhythm, No Murmurs, No Rub and No Gallop
Respiratory: Decreased Breath Sounds (at bases, otherwise clear)
Sternum: Stable
Incision: Clean, Dry, Intact and Dressing Intact
Extremities: No Edema
Data Reviewed
-
Lab Results: Results Reviewed
Medications: Active Meds Reviewed
Chest X-Ray: Report Reviewed and Image Reviewed
ECG: Report Reviewed and Image Reviewed
[2024-02-26 08:34] LABS: Glucose - Point of Care 188 mg/dl (70-99)
[2024-02-26] MEDS: NOVOLOG FLEXPEN-MODERATE RESISTANCE 1 UNITS SC (08:34)
[2024-02-26] MEDS: BACTROBAN 2% OINTMENT 1 APPLIC NASAL (08:34)
[2024-02-26] MEDS: VITAMIN C 500 MG PO (08:35)
[2024-02-26] MEDS: LOW STRENGTH ASPIRIN 81 MG PO (08:35)
[2024-02-26] MEDS: PLAVIX 75 MG PO (08:35)
[2024-02-26] MEDS: FARXIGA 10 MG PO (08:35)
[2024-02-26] MEDS: SENOKOT-S 1 TABLET PO ×2 (08:35→19:57)
[2024-02-26] MEDS: NEURONTIN 1600 MG PO ×3 (08:35→23:17)
[2024-02-26] MEDS: PROTONIX 40 MG PO (08:35)
[2024-02-26] MEDS: FEOSOL 325 MG PO (08:35)
[2024-02-26] MEDS: LIDOCAINE 4% PATCH 1 PATCH TOPICAL (08:36)
[2024-02-26] MEDS: PACERONE 400 MG PO ×3 (08:36→23:16)
[2024-02-26] MEDS: METAMUCIL, KONSYL 1 PACKET PO (08:36)
[2024-02-26] MEDS: TOPROL XL PO (08:36)
[2024-02-26] MEDS: MAGNESIUM OXIDE 500 MG PO (08:36)
[2024-02-26] MEDS: NSS IV (08:37)
--- NOTE | 2024-02-26 08:50 | PTCARENOTE ---
Assumed care of patient at 0700. Pt is awake, alert, and oriented. Pt with complaints of chronic back pain. Pt remains SR with HR 80's. BP 95/63 MAP 73. Pulse oximetry 93% on room air. Pt tolerating PO diet. Voiding in bathroom without issue.
Midsternal incision approximated and SOCIAL SCIENCES INSTRUCTOR. Right leg incision approximated and BRETT. Pt currently resting comfortably in bed with call elliott within reach.
--- NOTE | 2024-02-26 09:12 | PN.DE.MGMTRT ---
Insulin Management
- -
02/26/2024: Diabetes management F/U:
53 year old male admitted 02/15 with chest pain--> NSTEMI with MVCAD, Now POD #3 s/p CABG x3.
PMH: HTN, HLD, GERD, IDDM, History of right nephrectomy 2/2 hydronephrosis, Tobacco abuse ~1 pack/day x 45 years, Diabetic polyneuropathy, Opioid dependence/chronic pain syndrome post spinal fusions. Chart review noted that pt had recent admit @
[facility] for [place], signed out AMA
Upon interview, pt states that she has poor compliance with diet, states she eats rice with most meals. Says she has been a diabetic for 'long time', states it her most recent A1C was 12.5% few months ago. states she follows with her PCP for her
diabetes care. A1C on admission was A1C 11.8%, Cr 09, eGFR> 60.
Was taking Jardiance 25 mg Daily, Lantus 30 units @ HS, NovoLog 30 units AC and Trulicity 3mg weekly on Tuesdays.
Pt awake, alert, resting in bed, offers no complaints, able to discuss diabetes mgt at home.
Transitioned off glycemic protocol on 02/23 to SQ Lantus and corrective insulin only. Glucose has remained stable since transitioning off drip
02/24 premeal range was 131 to 160, required no corrective insulin with meals.
Received Lantus 30 units @ HS, 3AM blood sugar was 174 and 188 fasting this AM.
Will start AC NovoLog 4 units, 1st dose at lunch. Cont Lantus 30 units @ HS and Farxiga 10mg daily.
Will closely monitor premeal glucose trend and adjust AC insulin dose if needed
Pt reports that she was able to find a site that offers OP DSME Classes in [place]. Notified pt again that [facility] has DSME classes that are also offered in [place], if she would prefer that.
Diabetes History
- -
Type of Diabetes: 2 requiring insulin
Pre-Admission Diabetes Regimen
12/03/24
03:42
Creatinine 1.1 H
Lab Results
Hemoglobin A1c 11.8 % (4.0-5.6) H 02/17/24 08:13
Insulin Pump Settings
IP Diabetes Regimen
02/25/24 02/25/24 02/25/24
12:20 16:46 22:58
Glucose
POC Glucose 138 H 131 H 198 H
02/26/24 02/26/24
03:42 08:32
Glucose 174 H
POC Glucose 188 H
Meal type: Dinner
Meal type: Lunch
Amount consumed: 65%
Amount consumed: 50%
Patient Education
--- NOTE | 2024-02-26 11:47 | CM ---
Reviewed chart, Met with Mrs Ramirez to review discharge plans. She states she is feeling well and maybe able to go home soon. Telephone call to [facility] Crushing Machine Operator to update her with the discharge date. Left message. Telephone call
to Dr. Schultz her pain management doctor to inform him that she will not make her Sunday Appointment. Left message. Prior to admission she resides with her aunt in a two story home with two steps to enter. Prior to admission she ambulates with a
single oint cane or walker. Prior to admission she was getting PLANT ENGINEERING SUPERVISOR services thru the waiver program. Medical work-up in progress. The discharge plan is to return home with her aunt with rresumption of her PLANT ENGINEERING SUPERVISOR and [facility] VNA Services when medically
stable.
--- NOTE | 2024-02-26 12:00 | PTCARENOTE ---
Pt remains SR with HR 80's-90's. BP 97/61 MAP 73. Pulse oximetry 95% on room air. Pt tolerating working with cardiac rehab. 2 view x-ray completed.
[2024-02-26] MEDS: NOVOLOG FLEXPEN 4 UNITS SC ×2 (14:16→18:40)
[2024-02-26 14:17] LABS: Glucose - Point of Care 273 mg/dl (70-99)
[2024-02-26] MEDS: NOVOLOG FLEXPEN-MODERATE RESISTANCE 5 UNITS SC (14:17)
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
[2024-02-26] MEDS: TYLENOL PO (17:01)
[2024-02-26] MEDS: CRESTOR 40 MG PO (17:02)
--- NOTE | 2024-02-26 17:15 | PTCARENOTE ---
Pt remains SR/ST with HR 104. BP 124/71 MAP 84. Pt currently OOB in chair. Ambulating independently in room without issue.
[2024-02-26 18:39] LABS: Glucose - Point of Care 143 mg/dl (70-99)
[2024-02-26] MEDS: NOVOLOG FLEXPEN-MODERATE RESISTANCE SC (18:41)
[2024-02-26] MEDS: MAGNESIUM OXIDE PO (19:57)
[2024-02-26] MEDS: TOPROL XL 12.5 MG PO (19:58)
--- NOTE | 2024-02-26 20:00 | PTCARENOTE ---
received from [facility]. pt resting comfortably in bed. ST on monitor. VSS. pt is AAOx4. heart sounds audible, radial and DP pulses palpable, no edema. lungs diminished, spo2 90% on 2 LNC. pt voiding. +bs x4 quadrants, abdomen soft non tender.
surgical sites maintained. PIV maintained. pt will be transferred to IVU tonight and d/c tomorrow.
[2024-02-26 21:30] LABS: Glucose - Point of Care 264 mg/dl (70-99)
--- NOTE | 2024-02-26 21:32 | PTCARENOTE ---
Received patient from CVICU @ 2109. Patient awake, but drowsy. BP 102/66, Sinus tach 114-105, 85% on room air. 2L NC started-- patient up to 90%. Discussed plan of care. Patient verbalized understanding. Call elliott within reach.
[2024-02-26] MEDS: ZYPREXA 20 MG PO (23:16)
[2024-02-26] MEDS: ELAVIL 75 MG PO (23:17)
[2024-02-26] MEDS: LANTUS 0.3 UNITS SC (23:21)
[2024-02-27] VITALS (8 sets, daily range): BP systolic 83–109; BP diastolic 53–71; BMI 25.8
[2024-02-27] MEDS: ROXICODONE 10 MG PO ×3 (03:54→12:30)
[2024-02-27 04:38] LABS: Hematocrit 31.5 % (37.0-47.0); Hemoglobin 10.3 g/dL (12.0-16.0); Mean Corp Hgb Conc. 32.7 g/dL (33.0-37.0); Mean Corpuscular Hgb 30.9 pg (27.0-31.0); Mean Corpuscular Volume 94.6 fL (81.0-99.0); Mean Platelet Volume 11.4 fL (7.4-10.4); Platelet Count 258 10^3/uL (130-400); Red Blood Cell Count 3.33 10^6/uL (4.20-5.40); Red Cell Dist. Width 13.4 % (11.5-14.5); White Blood Cell Count 18.3 10^3/uL (4.8-10.8)
[2024-02-27 05:00] LABS: Blood Urea Nitrogen 19 mg/dl (7-17); Calcium 8.4 mg/dl (8.4-10.2); Carbon Dioxide 25 mmol/L (22-30); Chloride 103 mmol/L (98-107); Estimated Creatinine Clearance 49 ml/min; Glucose 152 mg/dl (70-99); Magnesium 2.5 mg/dl (1.6-2.3); Potassium 4.5 mmol/L (3.5-5.1); Sodium 139 mmol/L (135-145); eGFR 54.13
--- NOTE | 2024-02-27 06:16 | W.PN.CT ---
Today's Communication / Plan
-
-pod #5
-no significant issues overnight, remained in NSR
-check ECG this am to follow Qt (on high dose Amio 400 tid and Elavil)
-Cr trended up - 1.2 today (1.1 on 02/25 and 0.9 preop)- follow
-check for postvoid residuals
-Tmax 100.7- encourage IS
-follow BP
-current meds (ASa, Plavix, Crestor, Farxiga, Toprol 12.5 bid, Amio 400tid, Elavil, Protonix)
Assessment / Plan
-
- NSTEMI with multivessel coronary artery disease- s/p CABG x3 (In situ HANEY to LAD, HANK y'd off of the HANEY to OM branch, ao to RSVG to distal RCA) by Dr. Davies on 02/22/24, pod #5
- Intraop HU: LVEF preop and postop 60 to 65% with no regional wall motion abnormalities. She had mild left ventricular hypertrophy.
- Insulin-dependent diabetes mellitus, HbA1c of 12
- Hypertension
- GERD
- Hyperlipidemia
- History of right nephrectomy secondary to hydronephrosis
- Tobacco abuse approximately 1 pack/day for the last 45 years
- Diabetic polyneuropathy- on Gabapentin preop
- Opioid dependence/chronic pain syndrome post spinal fusions- Oxycodone 10 mg q4h
- Tobacco use (1/2ppd)
- Acute postop blood loss anemia - stable without transfusion
- Acute postop thrombocytopenia
- Acute postop atelectasis
- Suspected acute postop pericarditis/+rub
- Acute postop hypovolemia with subsequent hypervolemia
- Acute pulmonary insufficiency (following surgery)
- Acute posto a-fib on 02/25- converted to NSR with Amio boluses
Discussed patient care with: Nursing and Care Team
Subjective
Procedure
s/p CABG x3 (In situ HANEY to LAD, HANK y'd off of the HANEY to OM branch, ao to RSVG to distal RCA) by Dr. Davies on 02/22/24
-
Date of Service: February 27, 2024
Objective Data
-
Lab Results
02/27/24 03:50
02/27/24 03:50
PT 17.5 Sec (11.4-14.6) H 02/22/24 15:27
INR 1.40 02/22/24 15:27
APTT 31.1 Sec (23.4-35.0) 02/22/24 15:27
Vital Signs
Vital Signs
Temp Pulse Resp BP Pulse Ox
98.7 F 92 15 91/65 93
02/27/24 03:48 02/27/24 03:48 02/27/24 03:48 02/27/24 03:41 02/27/24 03:48
CT Intake/Output/Weight
02/26/24 02/26/24 02/27/24
06:59 18:59 06:59
Intake Total 720 / 1370
Balance 720 / 1370
SaO2: 93
Physical Exam
-
General: Awake and AOx3
Cardiovascular: Regular rate & rhythm, No Murmurs and No Rub
Respiratory: Rales (at bases. No wheeze)
Sternum: Stable
Incision: Clean, Dry and Intact
Extremities: Other (trace edema b/l, 1+ DP b/l)
Abdomen: soft, nontender, nondistended, + bowel sounds, no BM
Data Reviewed
-
Lab Results: Results Reviewed
Medications: Active Meds Reviewed
Chest X-Ray: Report Reviewed and Image Reviewed
ECG: Report Reviewed and Image Reviewed
[2024-02-27] MEDS: TYLENOL 1000 MG PO (06:26)
[2024-02-27 07:50] LABS: Glucose - Point of Care 147 mg/dl (70-99)
--- NOTE | 2024-02-27 07:58 | PN.DE.MGMTRT ---
Insulin Management
- -
02/27/2024: Diabetes management F/U:
53 year old male admitted 02/15 with chest pain--> NSTEMI with MVCAD, Now POD #3 s/p CABG x3.
PMH: HTN, HLD, GERD, IDDM, History of right nephrectomy 2/2 hydronephrosis, Tobacco abuse ~1 pack/day x 45 years, Diabetic polyneuropathy, Opioid dependence/chronic pain syndrome post spinal fusions. Chart review noted that pt had recent admit @
[facility] for [place], signed out AMA
Upon interview, pt states that she has poor compliance with diet, states she eats rice with most meals. Says she has been a diabetic for 'long time', states it her most recent A1C was 12.5% few months ago. states she follows with her PCP for her
diabetes care. A1C on admission was A1C 11.8%, Cr 09, eGFR> 60.
Was taking Jardiance 25 mg Daily, Lantus 30 units @ HS, NovoLog 30 units AC and Trulicity 3mg weekly on Tuesdays.
Pt awake, alert, resting in bed, offers no complaints, able to discuss diabetes mgt at home.
Transitioned off glycemic protocol on 02/23 to SQ Lantus and corrective insulin only. 02/25 AC NovoLog was started.
Glucose starting to trend up. 02/25 premeal range 143 to 273.
Received Lantus 30 units @ HS, 3AM glucose was 152 (V), FBG 147 POC this AM.
Will increase sglt2 to OP dose of 25 mg daily--> Farxiga 25 mg. Increase AC NovoLog to 8 units.
Cont Lantus 30 units @ HS and moderate corrective insulin with meals.
Will closely monitor premeal glucose trend and adjust AC insulin dose if needed.
Instructed pt to monitor her blood sugars 3x/day and to contact her PCP if blood sugar start going up so they can increase her AC dose since she was requiring NovoLog 30 units AC MANAGER HEART FAILURE.
Diabetes History
- -
Type of Diabetes: 2 requiring insulin
Pre-Admission Diabetes Regimen
02/27/24
03:50
Creatinine 1.2 H
Lab Results
Hemoglobin A1c 11.8 % (4.0-5.6) H 02/17/24 08:13
Insulin Pump Settings
IP Diabetes Regimen
02/26/24 02/26/24 02/26/24
08:32 14:15 18:38
Glucose
POC Glucose 188 H 273 H 143 H
02/26/24 02/27/24 02/27/24
21:29 03:50 07:49
Glucose 152 H
POC Glucose 264 H 147 H
Meal type: Breakfast
Amount consumed: 100%
Patient Education
[2024-02-27] MEDS: ProAmatine 2.5 MG PO (08:12)
[2024-02-27] MEDS: LIDOCAINE 4% PATCH TOPICAL ×2 (08:12→09:05)
[2024-02-27] MEDS: SENOKOT-S 1 TABLET PO (08:13)
[2024-02-27] MEDS: PROTONIX 40 MG PO (08:13)
[2024-02-27] MEDS: NEURONTIN 1600 MG PO (08:13)
[2024-02-27] MEDS: LOW STRENGTH ASPIRIN 81 MG PO (08:13)
[2024-02-27] MEDS: FEOSOL 325 MG PO (08:13)
[2024-02-27] MEDS: PLAVIX 75 MG PO (08:14)
[2024-02-27] MEDS: FARXIGA 10 MG PO ×2 (08:14→10:22)
[2024-02-27] MEDS: PACERONE 400 MG PO (08:14)
[2024-02-27] MEDS: VITAMIN C 500 MG PO (08:14)
[2024-02-27] MEDS: TOPROL XL PO (08:15)
[2024-02-27] MEDS: NOVOLOG FLEXPEN 4 UNITS SC ×2 (08:16→12:56)
[2024-02-27] MEDS: NOVOLOG FLEXPEN-MODERATE RESISTANCE SC (08:24)
--- NOTE | 2024-02-27 09:00 | CON.ID ---
Consultation
-
Date/Time Consultation Requested: 02/27/24 0800
Date/Time Consultation Performed: 02/27/24 10:00
Requesting Provider: Fred ROBERT
Performing Provider: Dr Allen
Reason for Consultation: leukocytosis and fevers s/p CABG
Chief Complaint / Past History
Chief Complaint
chest pain
History of Present Illness
Ms Alvarez is a 53 year old female with uncontrolled Dm2 (a1c 11.8), noncompliance with insulin/cholesterol medications who presented here 02/15 after leaving [place] two days prior to that AMA; she had cardiac catheterization with intervention.
She had L sided chest pressure with radiation down the L arm lasting for [address] here. No shortness of breath or palpitations. Had ongoing intermittent chest pain.
In the ER afebrile BP stable, wbc initially 12, hgb 16, plt 213, no L shift, cr 0.9, t bili 0.8, ast 41, alt 25, alkt phos 176, troponin 0.76, AM LDLc 241, CXR on arrival: no actue abnormality, EKG no acute change, Initially assessed as having
NSTEMI. 02/18 taken for cardiac cath showing multivessel CAD, CABG recommended. CT chest: no evidence of pnuemonia, mild COPD noted, possible calculus vs contrast in renal pelvis. 02/19 post op from cath, developed leukocytosis to 15.7, no
differential has been done since, hgb 15.9, plt 200, a UA was done and no pyuria noted, 02/21 leukocytosis persists, went for CABG and did require pressors post operatively weaned off within 24 hours, procedure was uncomplicated initially, CXR
notable for bibasilar atelectasis. 02/22 noted to have post operative pericarditis, nsaids avaoided given single kindey, is on opiates, no colchicine or steroids is on asa 81 mg, 02/23 POD 2, had single fever to 100.9 orally, leukocytosis ongoing,
also with afib several days postoperatively, UA >30 squamous cells, 6-10 wbc/hpf, 12/4 wbc with small improvement to 18, hgb 10., plt 258, developed domo with cr to 1.2. EKG today - st less elevated in inferior leads walking in the hallway. Today
patient denies: headaches, sinus tenderness, cough, sputum production, nausea, vomiting, diarrhea, constipation, new rashes, leg swelling, joint pains, painful IVs, pain or drainage from surgical site. Has some substernal burning that is mild
occasionally. On opiates for pain. ID is consulted for assessment of fevers and leukocytosis.
Past History
Additional Past Medical History:
HLD
Active smoker
Depression/bipolar
chronic pain with opioid dependency
diabetic polyneuropathy
Additional Past Surgical History:
R nephrectomy
Spinal Fusion
Cardiac cath
Allergy History:
hydromorphone [From Dilaudid] Allergy (Verified 02/16/24 15:58)
Rash
Medications Reviewed: Yes
Social History
Tobacco: Smoker (15 cigarettes per day)
Alcohol: None
Drug: Narcotics (prescribed oxycodone)
Family History
Family History: Other (uncle CABG x2)
Review of Systems
Review of Systems
General: Fever
All systems: All other systems were reviewed and were negative
Vital Signs
Temp Pulse Resp BP Pulse Ox
98.2 F 92 16 83/53 92
02/27/24 07:46 02/27/24 03:48 02/27/24 07:46 02/27/24 08:15 02/27/24 07:46
Physical Exam
Physical Exam
Constitutional: No Acute Distress
Cardiovascular: Regular Rate and S1/S2; Negative Murmur or Rub
Pulmonary: Clear and Symmetric; Negative Wheezes, Rales or Rhonchi
Gastrointestinal: Soft, Non Tender, Non Distended and Normal Bowel Sounds
Extremities: Negative Calf Swelling
Skin: Warm and Dry; Negative Rash or Jaundice
Wound: Other (sternal and R LE surgical sites no erythema, warmth, dehiscence or drainage )
Neurological: Awake and Oriented
Psychological: Calm
Lines: PIV (no erythema, warmth, tenderness or drainage)
Lab / Diagnostic Study Results
02/27/24 03:50
02/27/24 03:50
Abs Immat Gran (auto) 0.1 10^3/uL (0-0.05) H 02/16/24 16:41
Absolute Neuts (auto) 8.5 10^3/uL (1.4-6.5) H 02/16/24 16:41
Absolute Lymphs (auto) 2.8 10^3/uL (1.2-3.4) 02/16/24 16:41
Absolute Monos (auto) 0.7 10^3/uL (0.1-0.6) H 02/16/24 16:41
Absolute Basos (auto) 0.1 10^3/uL (0-0.2) 02/16/24 16:41
Immature Gran % 0.6 % (0-0.5) H 02/16/24 16:41
Neutrophils % 70.7 % (42.2-75.2) 02/16/24 16:41
Lymphocytes % 22.7 % (20.5-51.1) 02/16/24 16:41
Monocytes % 5.4 % (1.7-9.3) 02/16/24 16:41
Eosinophils % 0.2 % (0-6) 02/16/24 16:41
Basophils % 0.4 % (0-2) 02/16/24 16:41
PT 17.5 Sec (11.4-14.6) H 02/22/24 15:27
INR 1.40 02/22/24 15:27
Urine WBC 6-10 /HPF (0-5) A 02/24/24 16:35
Ur Squamous Epith Cells >30 /LPF (Few) 02/24/24 16:35
Microbiology Results
Micro:
02/17/24 00:14 MRSA Screen - Final
Nose No Methicillin Resistant Staphylococcus aureus isolated.
Assessment / Plan
Leukocytosis
Fever
Post Operative Pericarditis
Single Kidney - DOMO
- while opiates are addressing the pain of pericarditis, would favor adding colchicine to address the inflammatory component, could consider 0.6 mg colchicine oral qday x30 days
- no symptoms to suggest focal infection at this time
- could follow patient overnight on the colchicine or consider discharge
Care Review
Plan reviewed with: Other Provider (CT surgery physician extenders - rec colchicine)
[2024-02-27] MEDS: METAMUCIL, KONSYL 1 PACKET PO (09:06)
[2024-02-27] MEDS: COLCHICINE 0.6 MG PO (11:53)
--- NOTE | 2024-02-27 11:56 | CM ---
Chart reviewed. Patient is independent of ADLS, lives with her Aunt in a [address], [facility], ambulates with a RW and SPC. 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 I spoke to
Natalie, food and beverage service manager, waiver services are in order for discharge. Plan is for the patient to return home with [facility], waiver services and [id number]. CM to follow
[2024-02-27 11:58] LABS: Glucose - Point of Care 168 mg/dl (70-99)
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
[2024-02-27] MEDS: NOVOLOG FLEXPEN-MODERATE RESISTANCE 1 UNITS SC (12:56)
--- NOTE | 2024-02-27 13:12 | W.[place]-PDMP ---
[place]-PDMP
-
Checked the [place]- Prescription Drug Monitoring Program website, patient uses narcotics for chronic back pain under supervision of physician; safe to proceed with prescription.
--- NOTE | 2024-02-27 13:13 | W.DCSUMMARY ---
Discharge Summary
Discharge Data
Date of Admission: 02/16/24
Date of Discharge: 02/27/24
-
Pending Results: No
Hospital Course
Primary care physician: Michael Ferraro
Outpatient cider press operator: Imelda Tanner
Inpatient consultants:
Procedures:
1. 02/22/24 CABG x3 (HANEY to LAD, HANK to OM, SVG to RCA)
Primary Diagnosis:
1. CAD
Secondary Diagnoses:
1. HLD
2. DMII
3.chronic back pain
4. h/o nephrectomy
HPI: Patient is a 53y/oF (right hand dominant) with PMH IDDM, HLD, multiple spinal fusions with opioid dependence, tobacco abuse who presented to [facility] in [facility] 1 week ago with complaints of chest pain radiating to her left shoulder. Pt reports
some intermittent angina for the past few months leading up to this that resolved within a few minutes each episode. This pain did not resolve so she sought medical treatment. There, she ruled in for NSTEMI and underwent left heart catheterization
and reportedly had multivessel CAD, but films were not released from [facility] for our viewing. Patient states they told her she should have a stent and asked for her consent to have a 'computer decide what to do stents vs bypass' and she decided to
leave [place] and come to [facility] where her family lives. Since admission to on 02/16 pt has remaind relatively stable on heparin while medical teams attempted to obtain films from [facility]. Unfortunately earlier today patient started
having chest pain and had significant hypotension after 1 dose of SL nitro. Decision was made to proceed urgently with repeat [facility] to evaluate her coronaries. 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 Echo
completed yesterday demonstrates preserved LV function without significant valvular disease.
Hospital course: The patient was taken the OR on 02/21 and underwent coronary bypass grafting x [address] Davies. She had no complications and was transferred to the CVICU in stable condition on Levophed for blood pressure support. She was
extubated later that evening. On postop day 1 she was weaned off of pressors and her A-line and [place]Qu[place]in catheter were removed. She continued to do well postoperatively with pain being her main issue. On postoperative day 4 she did develop
atrial fibrillation which was converted to normal sinus rhythm upon administering amiodarone bolus and drip. She was transitioned off the amiodarone drip to p.o. amiodarone and remained in sinus rhythm. She did have a persistently elevated white
blood cell count and low-grade fevers at night. Infectious disease was consulted however felt that these findings could be consistent with pericarditis. She was started on colchicine. It was felt that she could be safely discharged home on
postoperative day #5. She was given explicit instructions on wound care physical activity and diet. She will follow-up with our office in 1 week with a chest x-ray and cardiology as scheduled.
Home medication changes:
albuterol sulfate 90 mcg/actuation aerosol inhaler 2 puff inhalation R Q6HPRN PRN sob 02/16/24
amitriptyline 25 mg tablet 75 mg PO HS NEUROPATHY 02/16/24
empagliflozin 25 mg tablet (Jardiance) 25 mg PO DAILY Diabetes 02/16/24
gabapentin 800 mg tablet 1,600 mg PO TID NEUROPATHY 02/16/24
insulin glargine 100 unit/mL (3 mL) subcutaneous pen (Lantus Solostar U-100 Insulin) 30 unit SC HS Diabetes 02/16/24
olanzapine 20 mg tablet 20 mg PO HS Depression/ Bipolar 02/16/24
oxycodone 10 mg tablet 10 mg PO Q4H Pain 02/16/24
aspirin 81 mg chewable tablet 81 mg PO DAILY Heart disease/condition #0 tabs 02/24/24
acetaminophen 325 mg tablet 650 mg (2 x 325 mg) PO Q4HPRN PRN mild pain,headache,temp >101F #0 tabs 02/27/24
clopidogrel 75 mg tablet 75 mg PO DAILY #30 tabs 02/27/24
colchicine 0.6 mg tablet 0.6 mg PO DAILY #30 tabs 02/27/24
insulin aspart U-100 100 unit/mL (3 mL) subcutaneous pen 8 unit (0.08 mL) SC AC #0 mL 02/27/24
metoprolol succinate 25 mg tablet,extended release 24 hr 12.5 mg (1/2 x 25 mg) PO DAILY #60 tabs 02/27/24
oxycodone-acetaminophen 5 mg-325 mg tablet (Endocet) 1 tab PO Q4H PRN Pain #12 tabs 02/27/24
rosuvastatin 20 mg tablet 40 mg (2 x 20 mg) PO QPM #30 tabs 02/27/24
Discharge Plan
-
Patient Disposition: Home (Routine Discharge)
Discharge Diagnosis/Procedures: NSTEMI/CABG x 3
Condition: Good
Diet: Low Cholesterol, Low Sodium and Diabetic, Carb Controlled
Activity: No strenuous activity
Driving Restrictions: Not until seen by your Dr
Bathing Restrictions: OK to Shower
Other Services: Cardiac Rehab
Specialty Instructions: Weigh Daily- Call MD for wt gain/loss 3 lbs overnight/5 lbs in 1 week
Activity Restrictions/Additional Instructions:
ACTIVITY:
-No strenuous activity: no heavy lifting, pushing, pulling anything over 15 pounds for one month
-continue to use stairs as tolerated
DRIVING RESTRICTIONS:
-No driving for one month or until approved by your surgeon
WOUND CARE:
-Shower daily. Use soap & water.
-No lotions, creams or powders on incision area.
DIET:
-continue a low fat/low cholesterol diet.
-IF you are diabetic, continue carb controlled diet.
CARDIAC REHAB:
-Please make appointment to start in 5-6 weeks with your local hospital program. (See Cardiac Rehabilitation Discharge Booklet).
SPECIALTY INSTRUCTIONS:
-Weigh yourself daily. Call your physician for any weight gain/loss of 3 lbs overnight or 5 lbs in one week.
-REPORT any clicking noise or uneven appearance of your sternum to your surgeon immediately.
-If you smoke, you are instructed to quit. The [place] smoking hotline phone number is [phone]
Referrals:
Miguel [facility]Helena [facility] [Other] ( )
[facility] [Outside]
Michael Ferraro DO [Family Provider] - in four to six weeks (610Please make an appointment in four to six weeks. )
Vanesa Mckeon CRNP [Specified Professional Personl] - 03/31/24 3:40 pm (You have an appt to see Dr. Imelda Tanner's nurse practitioner, Vanesa, at the [place] office on 03/31/24 at 3:40 PM. Please call [phone] if you need to reschedule.)
Carl Davies MD [Active] - 03/27/24 1:45 pm
Prescriptions:
New
aspirin 81 mg Tablet,Chewable
81 mg PO DAILY Qty: 0 0RF
colchicine 0.6 mg Tablet
0.6 mg PO DAILY Qty: 30 0RF
rosuvastatin 20 mg Tablet
40 mg PO QPM Qty: 30 2RF
acetaminophen 325 mg Tablet
650 mg PO Q4HPRN PRN (Reason: mild pain,headache,temp >101F ) Qty: 0 0RF
clopidogrel 75 mg Tablet
75 mg PO DAILY Qty: 30 2RF
metoprolol succinate 25 mg Tablet Extended Release 24 Hr
12.5 mg PO DAILY Qty: 60 2RF
insulin aspart U-100 100 unit/mL (3 mL) Insulin Pen
8 unit SC AC Qty: 0 0RF
oxycodone-acetaminophen [Endocet] 5-325 mg tablet
1 tab PO Q4H PRN (Reason: Pain) Qty: 12 0RF
Continued
amitriptyline 25 mg Tablet
75 mg PO HS
gabapentin 800 mg Tablet
1,600 mg PO TID
albuterol sulfate 90 mcg/actuation Hfa Aerosol Inhaler
2 puff INHALATION R Q6HPRN PRN (Reason: sob)
olanzapine 20 mg Tablet
20 mg PO HS
insulin glargine [Lantus Solostar U-100 Insulin] 100 unit/mL (3 mL) Insulin Pen
30 unit SC HS
oxycodone 10 mg Tablet
10 mg PO Q4H
Patient Comments:
02/16/24: filled 02/01/24 for 180 tabs over 30 days
Jardiance 25 mg Tablet
25 mg PO DAILY
Discontinued
insulin aspart U-100 100 unit/mL Solution
30 unit SC TID
Trulicity 3 mg/0.5 mL Pen Injector
3 mg SC TU
Discharge Orders:
Discharge Patient (As Directed); Ordered 02/27/24
Ordered By: Judah Ibarra
Care Plan Goals
Care Plan Goals:
Problem: Readiness for enhanced knowledge related to diagnosis and treatment plan
Goal: Understand your diagnosis and treatment plan needs, including medications if applicable.
Instructions: Know your diagnosis, underlying causes and treatment plan options, including medications if applicable. Consult with your health care team to learn about your diagnosis and treatment plan, including medications if applicable.
Discharge Date and Time
Print Language: CHINESE
--- NOTE | 2024-02-27 13:20 | PTCARENOTE ---
BP 85/59. Pt asymptomatic. Feliberto. Fred PRINCE made aware. PRN Midrodrine 2.5mg given as ordered. See MAR.
--- NOTE | 2024-02-27 13:31 | PTCARENOTE ---
BP 89/53. Metoprolol Xl 12.5mg held d/t parameter. Tracy Ibarra made aware and parameters changed.
[2024-02-27] MEDS: TYLENOL PO (13:52)
[2024-02-27] MEDS: NSS IV (13:52)
--- NOTE | 2024-02-27 16:14 | PTCARENOTE ---
Removed tele and IV. Discharge instructions reviewed w/ pt. Verbalizes understanding. Belongings collected and sent w/ pt. Escorted via wheelchair and staff assist. Discharged to home.
== END 2024-02-27 16:32 | disposition home health service (06) | DRG 233 ==
LOC: IVU 18:07
PROVIDERS: Anesthesiology; Clinical Nurse Specialist Acute Care; Internal Medicine; Internal Medicine Interventional Cardiology; Nurse Practitioner; Physician Assistant Medical; ADMITTING PHYSICIAN Hospitalist; ATTENDING PHYSICIAN Thoracic Surgery (Cardiothoracic Vascular Surgery); CONSULT PHYSICIAN Internal Medicine; CONSULT PHYSICIAN Nuclear Medicine Nuclear Cardiology; CONSULT PHYSICIAN Student in an Organized Health Care Education/Training Program; CONSULT PHYSICIAN Thoracic Surgery (Cardiothoracic Vascular Surgery); EMERGENCY PHYSICIAN Emergency Medicine; FAMILY PHYSICIAN Family Medicine
PROC: 4A023N7 Measurement of Cardiac Sampling and Pressure, Left Heart, Percutaneous Approach (ICD-10-PCS; 2024-02-19)
PROC: B2111ZZ Fluoroscopy of Multiple Coronary Arteries using Low Osmolar Contrast (ICD-10-PCS; 2024-02-19)
PROC: B2151ZZ Fluoroscopy of Left Heart using Low Osmolar Contrast (ICD-10-PCS; 2024-02-19)
PROC: 5A1221Z Performance of Cardiac Output, Continuous (ICD-10-PCS; 2024-02-22)
PROC: B24BZZ4 Ultrasonography of Heart with Aorta, Transesophageal (ICD-10-PCS; 2024-02-22)
PROC: 06BP4ZZ Excision of Right Saphenous Vein, Percutaneous Endoscopic Approach (ICD-10-PCS; 2024-02-22)
PROC: 021009W Bypass Coronary Artery, One Artery from Aorta with Autologous Venous Tissue, Open Approach (ICD-10-PCS; 2024-02-22)
PROC: 02100Z9 Bypass Coronary Artery, One Artery from Left Internal Mammary, Open Approach (ICD-10-PCS; 2024-02-22)
PROC: 02100Z8 Bypass Coronary Artery, One Artery from Right Internal Mammary, Open Approach (ICD-10-PCS; 2024-02-22)
DX: I21.4 Non-ST elevation (NSTEMI) myocardial infarction (principal); J95.1 Acute pulmonary insufficiency following thoracic surgery; F11.20 Opioid dependence, uncomplicated; D62 Acute posthemorrhagic anemia; J98.11 Atelectasis; I30.8 Other forms of acute pericarditis; N17.9 Acute kidney failure, unspecified; E78.00 Pure hypercholesterolemia, unspecified; I25.10 Atherosclerotic heart disease of native coronary artery without angina pectoris; F17.210 Nicotine dependence, cigarettes, uncomplicated; I48.91 Unspecified atrial fibrillation; I95.9 Hypotension, unspecified; E11.65 Type 2 diabetes mellitus with hyperglycemia; D69.59 Other secondary thrombocytopenia; E87.70 Fluid overload, unspecified; E86.1 Hypovolemia; Y83.2 Surgical operation with anastomosis, bypass or graft as the cause of abnormal reaction of the patient, or of later complication, without mention of misadventure at the time of the procedure; F31.9 Bipolar disorder, unspecified; G89.4 Chronic pain syndrome; E11.42 Type 2 diabetes mellitus with diabetic polyneuropathy; K21.9 Gastro-esophageal reflux disease without esophagitis; I10 Essential (primary) hypertension; J43.9 Emphysema, unspecified; M54.9 Dorsalgia, unspecified; Z79.4 Long term (current) use of insulin; Z79.899 Other long term (current) drug therapy; Z82.49 Family history of ischemic heart disease and other diseases of the circulatory system; Z90.5 Acquired absence of kidney; Z91.148 Patient's other noncompliance with medication regimen for other reason; Z98.1 Arthrodesis status
CPT/HCPCS: 71045; 71046; 71250; 80048; 80053; 80061; 81003; 81015; 82330; 82565; 82805; 82947; 82962; 83036; 83735; 84132; 84302; 84484; 84520; 85014; 85018; 85025; 85027; 85049; 85610; 85730; 86850; 86900; 86901; 86920; 87070; 93005; 93306; 93312; 93320; 93325; 93458; 93880; 93923; 93931; 94002; 94060; 94640; 96365; 96366; 96367; 99291; 99406; C1894; J2916; P9047; Q9967